=== PATIENT | male | born 1970 | race Caucasian/White ===

== ENCOUNTER 2018-03-05 10:28 | Outpatient (CLI) | payer MEDICAID, SELFPAY ==
[2018-03-05 13:07] LABS: TSH (W/Ref FT4) 1.91 uIU/mL (0.358-3.74)
[2018-03-06 09:35] LABS: PSA, Screening 0.4 ng/ml (0-2.5)
[2018-03-07 20:25] LABS: Testosterone, Bioavailable 38 ng/dL (61-213); Testosterone, Total 419 ng/dL (240-950)
== END 2018-03-05 10:48 ==
PROVIDERS: Urology; PCP Family Medicine; Visit Provider Physician Assistant Medical
DX: R53.82 Chronic fatigue, unspecified (principal); Z80.42 Family history of malignant neoplasm of prostate; Z12.5 Encounter for screening for malignant neoplasm of prostate
CPT/HCPCS: 36415; 84153; 84403; 84410; 84443

== ENCOUNTER 2018-05-29 18:34 | Outpatient (REF) | payer MEDICAID, SELFPAY ==
[2018-05-29 19:21] LABS: ALT 20 U/L (12-78); AST 14 U/L (15-37); Albumin 3.4 g/dL (3.4-5.0); Alkaline Phosphatase 121 U/L (46-116); Anion Gap 11.8 mmol/L (3-11); BUN 7 mg/dL (7-18); Bilirubin, Total 0.1 mg/dL (0.2-1.0); CO2 29.2 mmol/L (21.0-32.0); CREATININE 0.86 mg/dL (0.70-1.30); Calcium 8.9 mg/dL (8.5-10.1); Chloride 99 mmol/L (98-107); Glucose 89 mg/dL (70-100); Potassium 3.5 mmol/L (3.5-5.1); Sodium 140 mmol/L (136-145); Total Protein 6.7 g/dL (6.4-8.2)
[2018-05-29 19:29] LABS: Abs Immature Grans 0.02 k/cumm (0.0-0.09); Absolute Basophil Count 0.05 k/cumm (0.0-0.2); Absolute Eosinophil Count 0.08 k/cumm (0.0-0.7); Absolute Lymphocyte Count 3.76 k/cumm (1.2-3.4); Basophils % 0.4; Eosinophils % 0.6; HCT 41.2 % (40.0-50.0); HGB 13.7 g/dL (13.5-17.5); Immature Grans % 0.2; Mean Corp. HGB Concentration 33.3 g/dL (32.0-36.0); Mean Corpuscular Hemoglobin 29.7 pg (27.0-33.0); Mean Corpuscular Volume 89.2 fL (80-95); Mean Platelet Volume 10.6 fL (8.0-11.0); Monocytes % 7.7; Neutrophils % 61.1; Platelet Count 443 x1000/uL (130-400); RBC 4.62 m/cumm (4.50-6.00); RBC Distribution Width 13.5 % (11.8-14.1); White Blood Cell Count 12.52 k/cumm (4.4-10.8)
[2018-05-29 19:56] LABS: Absolute Monocyte Count 0.96 k/cumm (0.11-0.7); Absolute Neutrophil Count 7.65 k/cumm (1.2-6.7)
== END 2018-05-29 18:54 ==
LOC: LBN 18:34
PROVIDERS: PCP Family Medicine; Visit Provider Family Medicine
DX: G89.29 Other chronic pain (principal)
CPT/HCPCS: 80053; 85025

== ENCOUNTER 2018-06-04 14:03 | Outpatient (CLI) | payer MEDICAID, SELFPAY ==
[2018-06-06 14:47] LABS: Testosterone, Bioavailable 39 ng/dL (61-213); Testosterone, Total 431 ng/dL (240-950)
== END 2018-06-04 14:23 ==
PROVIDERS: PCP Family Medicine; Visit Provider Urology
DX: E29.1 Testicular hypofunction (principal)
CPT/HCPCS: 36415; 84403; 84410

== ENCOUNTER 2018-07-19 15:25 | Outpatient (CLI) | payer MEDICAID, SELFPAY ==
[2018-07-24 00:37] LABS: Testosterone, Bioavailable 322 ng/dL (61-213); Testosterone, Free 31.1 ng/dL (4.26-16.4); Testosterone, Total 1110 ng/dL (240-950)
== END 2018-07-19 15:45 ==
PROVIDERS: PCP Family Medicine; Visit Provider Urology
DX: E29.1 Testicular hypofunction (principal)
CPT/HCPCS: 36415; 84402; 84403; 84410

== ENCOUNTER 2018-09-13 15:14 | Outpatient (CLI) | payer MEDICAID, SELFPAY ==
[2018-09-15 16:34] LABS: Testosterone, Total 334 ng/dL (240-950)
== END 2018-09-13 15:34 ==
PROVIDERS: PCP Family Medicine; Visit Provider Urology
DX: E29.1 Testicular hypofunction (principal)
CPT/HCPCS: 36415; 84403

== ENCOUNTER 2018-09-18 14:46 | Outpatient (REF) | payer MEDICAID, SELFPAY ==
[2018-09-18 15:02] LABS: Abs Immature Grans 0.01 k/cumm (0.0-0.09); Absolute Basophil Count 0.04 k/cumm (0.0-0.2); Absolute Eosinophil Count 0.05 k/cumm (0.0-0.7); Absolute Lymphocyte Count 2.31 k/cumm (1.2-3.4); Absolute Monocyte Count 0.67 k/cumm (0.11-0.7); Absolute Neutrophil Count 4.86 k/cumm (1.2-6.7); Anion Gap 10.8 mmol/L (3-11); BUN 5 mg/dL (7-18); Basophils % 0.5; CO2 29.2 mmol/L (21.0-32.0); CREATININE 0.93 mg/dL (0.70-1.30); Calcium 8.9 mg/dL (8.5-10.1); Chloride 97 mmol/L (98-107); Eosinophils % 0.6; Glucose 95 mg/dL (70-100); HCT 41.3 % (40.0-50.0); HGB 13.9 g/dL (13.5-17.5); Immature Grans % 0.1; Lymphocytes % 29.1; Mean Corp. HGB Concentration 33.7 g/dL (32.0-36.0); Mean Corpuscular Hemoglobin 28.7 pg (27.0-33.0); Mean Corpuscular Volume 85.3 fL (80-95); Mean Platelet Volume 10.5 fL (8.0-11.0); Monocytes % 8.4; Neutrophils % 61.3; Platelet Count 356 x1000/uL (130-400); Potassium 3.6 mmol/L (3.5-5.1); RBC 4.84 m/cumm (4.50-6.00); RBC Distribution Width 14.2 % (11.8-14.1); Sodium 137 mmol/L (136-145); White Blood Cell Count 7.94 k/cumm (4.4-10.8)
== END 2018-09-18 15:06 ==
LOC: LBN 14:46
PROVIDERS: PCP Family Medicine; Visit Provider Family Medicine
DX: Z91.89 Other specified personal risk factors, not elsewhere classified (principal); Z79.899 Other long term (current) drug therapy; M79.7 Fibromyalgia; G89.29 Other chronic pain
CPT/HCPCS: 80048; 85025

== ENCOUNTER 2019-01-15 11:50 | Outpatient (REF) | payer MEDICAID, SELFPAY ==
[2019-01-15 18:48] LABS: C-Reactive Protein 0.74 mg/dL (0.0-0.3)
== END 2019-01-15 12:10 ==
LOC: LBN 11:50
PROVIDERS: PCP Family Medicine; Visit Provider Family Medicine
DX: M06.00 Rheumatoid arthritis without rheumatoid factor, unspecified site (principal)
CPT/HCPCS: 86140

== ENCOUNTER 2019-03-04 11:42 | Outpatient (REF) | payer MEDICAID, SELFPAY ==
[2019-03-05 10:06] LABS: Lyme Ab w Rflx to Lyme Confirm Negative
[2019-03-06 21:41] LABS: Anaplasma phagocytophilum Negative (Negative); B. miyamotoi PCR Negative (Negative); Babesia divergens/MO-1 Negative (Negative); Babesia duncani Negative (Negative); Babesia microti Negative (Negative); Ehrlichia chaffeensis Negative (Negative); Ehrlichia ewingii/canis Negative (Negative); Ehrlichia muris eauclairensis Negative (Negative)
== END 2019-03-04 12:02 ==
LOC: LBN 11:42
PROVIDERS: PCP Family Medicine; Visit Provider Family Medicine
DX: W57.XXXA Bitten or stung by nonvenomous insect and other nonvenomous arthropods, initial encounter (principal); T14.8XXA Other injury of unspecified body region, initial encounter
CPT/HCPCS: 87798; 86618

== ENCOUNTER 2019-04-02 12:21 | Outpatient (CLI) | payer MEDICAID, SELFPAY ==
--- NOTE | 2019-04-02 12:15 | DI.RAD_ITS ---
EXAM: XR THORACIC SPINE COMPLETE INDICATION: Lhermitte's sign positive, upper back pain, [id number]. COMPARISON: ABD FLAT UPRIGHT PA CHEST from 09/22/2012 TECHNIQUE: 2D digital imaging was performed. FINDINGS: Vertebral bodies are well maintained in height. There are minimal endplate osteophytes. There is no significant scoliosis. The heart size is normal. IMPRESSION: Mild degenerative changes.
== END 2019-04-02 12:41 ==
PROVIDERS: PCP Family Medicine; Visit Provider Family Medicine
DX: M54.6 Pain in thoracic spine (principal); M47.814 Spondylosis without myelopathy or radiculopathy, thoracic region
CPT/HCPCS: 72072

== ENCOUNTER 2019-04-16 12:33 | Outpatient (CLI) | payer MEDICAID, SELFPAY ==
[2019-04-18 07:49] LABS: Testosterone, Total 264 ng/dL (240-950)
== END 2019-04-16 12:53 ==
PROVIDERS: PCP Family Medicine; Visit Provider Urology
DX: E29.1 Testicular hypofunction (principal)
CPT/HCPCS: 36415; 84403

== ENCOUNTER 2019-06-10 14:02 | Outpatient (CLI) | payer MEDICAID, SELFPAY ==
[2019-06-13 07:31] LABS: Testosterone, Total 120 ng/dL (240-950)
== END 2019-06-10 14:22 ==
PROVIDERS: PCP Family Medicine; Visit Provider Urology
DX: E29.1 Testicular hypofunction (principal)
CPT/HCPCS: 36415; 84403

== ENCOUNTER 2019-06-24 15:21 | Outpatient (CLI) | payer MEDICAID, SELFPAY ==
--- NOTE | 2019-06-24 15:13 | DI.RAD_ITS ---
EXAM: XR LUMBAR SPINE COMPLETE INDICATION: Chronic corticosteroid use, chronic low back pain Z79.52 JAIL USE. COMPARISON: No exams were available for comparison TECHNIQUE: 2D digital imaging was performed. FINDINGS: The vertebral bodies are well maintained in height. There is no significant disc space narrowing. T here are small endplate osteophytes. No spondylolysis, spondylolisthesis or scoliosis is seen. The aorta shows calcification but is normal in diameter. Surgical clips are noted in the right upper tyler drant. IMPRESSION: Mild degenerative disc changes
== END 2019-06-24 15:41 ==
PROVIDERS: PCP Family Medicine; Visit Provider Family Medicine
DX: M54.5 Low back pain (principal); Z79.52 Long term (current) use of systemic steroids; M51.36 Other intervertebral disc degeneration, lumbar region
CPT/HCPCS: 72110

== ENCOUNTER 2019-07-25 08:03 | Outpatient (CLI) | payer MEDICAID, SELFPAY ==
--- NOTE | 2019-07-25 11:17 | DI.CT_ITS ---
EXAM: CT RENAL COLIC WO CLINICAL HISTORY: Bilateral flank pain, moderate hematuria, N23, renal colic clif. TECHNIQUE: Imaging Protocol: Axial computed tomography images with coronal and sagittal reformatted images were created and reviewed. CONTRAST MATERIAL: None COMPARISON: ABD PELVIS WITH CONTRAST from 09/22/2012 LUMBAR SPINE WITHOUT CONTRAST from 03/13/2014 FINDINGS: ABDOMEN: Lung Bases: Normal where visualized. Liver: Normal density. No measurable mass. Gallbladder and biliary tract: No radiodense calculus or dilation. Status post cholecystectomy. Pancreas: Normal density, no abnormal calcifications or inflammatory process. Spleen: Normal. Kidneys: Normal size, contour and axis. No radiodense stones or obstructive uropathy. No masses seen. Adrenal glands: No masses seen. Abdominal Aorta: Abdominal portion non-dilated. Moderate calcification. PELVIS: Bladder: Nearly empty. No gross wall thickening, calcification or mass. Bowel: No obstruction or bowel wall thickening. Peritoneal cavity: No ascites, collection or mesenteric inflammatory response. Bones: Old-appearing compression fracture of the anterior superior endplate of L4.. IMPRESSION: No evidence of hydronephrosis, urinary tract calculi or mass.. DATA REPOSITORY: All CT scans at this facility are submitted to the National Radiology Data Registry (NRDR) Dose Index Registry (DIR) with the [employer] (A[employer]). RADIATION OPTIMIZATION: All CT scans at this facility use at least one of these dose optimization te chniques: automated exposure control; mA and/or kV adjustment per patient size (includes targeted exa ms where dose is matched to clinical indication); or iterative reconstruction.
== END 2019-07-25 08:23 ==
PROVIDERS: PCP Family Medicine; Visit Provider Family Medicine
DX: R10.31 Right lower quadrant pain (principal); R10.32 Left lower quadrant pain; R31.9 Hematuria, unspecified; Z90.49 Acquired absence of other specified parts of digestive tract; N23 Unspecified renal colic
CPT/HCPCS: 74176

== ENCOUNTER 2019-12-09 10:29 | Outpatient (REF) | payer MEDICAID, SELFPAY ==
[2019-12-09 18:51] LABS: Abs Immature Grans 0.02 k/cumm (0.0-0.09); Absolute Basophil Count 0.05 k/cumm (0.0-0.2); Absolute Eosinophil Count 0.05 k/cumm (0.0-0.7); Absolute Lymphocyte Count 2.65 k/cumm (1.2-3.4); Absolute Monocyte Count 0.73 k/cumm (0.11-0.7); Absolute Neutrophil Count 5.61 k/cumm (1.2-6.7); Basophils % 0.5; Eosinophils % 0.5; HCT 40.6 % (40.0-50.0); HGB 13.4 g/dL (13.5-17.5); Immature Grans % 0.2 %; Lymphocytes % 29.1; Mean Corpuscular Hemoglobin 28.8 pg (27.0-33.0); Mean Corpuscular Volume 87.3 fL (80-95); Mean Platelet Volume 10.3 fL (8.0-11.0); Neutrophils % 61.7; Platelet Count 396 x1000/uL (130-400); RBC 4.65 m/cumm (4.50-6.00); RBC Distribution Width 13.8 % (11.8-14.1); White Blood Cell Count 9.11 k/cumm (4.4-10.8)
[2019-12-09 19:07] LABS: ALT 13 U/L (16-63); AST 11 U/L (15-37); Albumin 3.3 g/dL (3.4-5.0); Alkaline Phosphatase 124 U/L (46-116); Anion Gap 10.7 mmol/L (3-11); BUN 5 mg/dL (7-18); Bilirubin, Total 0.2 mg/dL (0.2-1.0); CO2 28.3 mmol/L (21.0-32.0); Calcium 9.1 mg/dL (8.5-10.1); Chloride 97 mmol/L (98-107); Glucose 95 mg/dL (74-106); Potassium 3.6 mmol/L (3.5-5.1); Sodium 136 mmol/L (136-145); TSH (W/Ref FT4) 2.58 uIU/mL (0.36-3.74); Total Protein 6.6 g/dL (6.4-8.2)
== END 2019-12-09 10:49 ==
LOC: LBN 10:29
PROVIDERS: PCP Family Medicine; Visit Provider Family Medicine
DX: R63.4 Abnormal weight loss (principal)
CPT/HCPCS: 80053; 84443; 85025; 86140

== ENCOUNTER 2019-12-31 00:57 | Outpatient (CLI) | payer MEDICAID, SELFPAY ==
--- NOTE | 2019-12-31 06:45 | DI.CT_ITS ---
EXAM: CT CHEST/ABD/PEL W CLINICAL HISTORY: 60+ pack year hx, r/o malignancy,abnl wt loss,r63.4,f17.200. TECHNIQUE: Imaging Protocol: Axial computed tomography images with coronal and sagittal reformatted images were created and reviewed CONTRAST MATERIAL: Intravenous: Omnipaque 350 Contrast volume:100 cc Oral: yes / COMPARISON: CR XR THORACIC SPINE COMPLETE from 04/02/[address] RENAL COLIC WO from 07/25/2019 FINDINGS: CHEST: Thyroid: Normal Tracheobronchial tree: Patent where visualized. Mediastinum and Kerry: No dominant adenopathy or fluid collection. Pulmonary parenchyma: Paraseptal and centrilobular emphysema greater at the apices. No mass or suspi cious pulmonary nodules are seen. Pleura: No effusion or pneumothorax. Lymph nodes: Within normal limits. Aorta: Thoracic portion non-dilated. Heart: Normal size Bones: There is a moderate compression fracture of the superior endplate of T12 and a mild compressio n fracture of the superior endplate of L1, new when compared with the previous exams. ABDOMEN: Liver: Normal density. No measurable mass. Gallbladder and biliary tract: Status post cholecystectomy. Pancreas: Normal density, no abnormal calcifications or inflammatory process. Spleen: Normal. Kidneys: Normal size, contour and axis. No radiodense stones or obstructive uropathy. No masses seen. Adrenal glands: No masses seen. Aorta: Abdominal portion non-dilated. Lymph nodes: Within normal limits. PELVIS: Bladder: Symmetric distention, no gross wall thickening. Bowel: No obstruction or bowel wall thickening. Peritoneal cavity: No ascites, collection or mesenteric inflammatory response. Bones: Stable L4 compression fracture. Mild compression of the superior endplate of L3 which is new since the previous exam. No underlying pathologic lesions are seen. Reproductive organs: Within normal limits. IMPRESSION: Emphysematous changes. No suspicious mass. Compression fractures of T12, L1 and L3 which are new since the previous CT scan. Stable L4 compress ion fracture. RADIATION DOSE DELIVERED: 1,189.52mGy.cm Total DLP DATA REPOSITORY: All CT scans at this facility are submitted to the National Radiology Data Registry (NRDR) Dose Index Registry (DIR) with the [employer] (ACR). RADIATION OPTIMIZATION: All CT scans at this facility use at least one of these dose optimization te chniques: automated exposure control; mA and/or kV adjustment per patient size (includes targeted exa ms where dose is matched to clinical indication); or iterative reconstruction.
[2019-12-31] MEDS: Omnipaque 350 MG/ML 50 ML BTL IJ (08:14)
[2019-12-31] MEDS: Breeza Beverage 473 ML BTL PO ×2 (08:15→08:16)
[2019-12-31] MEDS: Omnipaque 350 MG/ML 100 ML BTL IJ (09:49)
[2019-12-31] MEDS: Normal Saline - Diluent 50 ML VIAL IV (09:50)
[2019-12-31] MEDS: Normal Saline Flush 10 ML SYR IVP (09:51)
== END 2019-12-31 01:17 ==
PROVIDERS: PCP Family Medicine; Visit Provider Family Medicine
DX: R63.4 Abnormal weight loss (principal); F17.210 Nicotine dependence, cigarettes, uncomplicated; M48.55XA Collapsed vertebra, not elsewhere classified, thoracolumbar region, initial encounter for fracture; J43.9 Emphysema, unspecified; M48.56XA Collapsed vertebra, not elsewhere classified, lumbar region, initial encounter for fracture
CPT/HCPCS: 74177; 71260; J3490; Q9967

== ENCOUNTER 2020-02-07 02:25 | Outpatient (CLI) | payer MEDICAID, SELFPAY ==
[2020-02-13 15:37] LABS: Testosterone, Free 9.71 ng/dL (4.26-16.4); Testosterone, Total 647 ng/dL (240-950)
== END 2020-02-07 02:45 ==
PROVIDERS: PCP Family Medicine; Visit Provider Family Medicine
DX: E29.1 Testicular hypofunction (principal); R79.89 Other specified abnormal findings of blood chemistry
CPT/HCPCS: 36415; 84402; 84403

== ENCOUNTER 2020-02-10 16:10 | Emergency (ER) | payer MEDICAID, SELFPAY ==
[2020-02-10 16:47] VITALS: BP 156/91; PULSE 101; RESP 16; TEMP 36.6; O2SAT 99
--- NOTE | 2020-02-10 17:02 | ED.GENADUL_ITS ---
Discharge Plan Disposition Patient Disposition: HOME Condition: Improving Discharge Details Clinical Impression: Constipation Primary Care Provider: Gabino Florian ED Provider: Estephania Bailey Home Meds and New Rx's Prescriptions: Continued tamsulosin 0.4 mg capsule 0.8 mg PO DAILY Qty: 120 RF: 4 testosterone [AndroGel] 20.25 mg/1.25 gram (1.62 %) gel in metered-dose pump 3 pump TP DAILY Qty: 75 RF: 5 omeprazole 20 mg capsule,delayed release(DR/EC) 20 mg PO DAILY Qty: 90 RF: 3 bupropion HCl 150 mg tablet extended release 24 hr See Rx Instructions PO .COMPLEX RF: 0 magnesium citrate Solution 150 ml PO ONCE Qty: 296 RF: 0 Caltrate 600-D Plus Minerals 600 mg calcium- 800 unit-50 mg tablet 1 tab PO DAILY Qty: 90 RF: 3 oxycodone 20 mg tablet 20 mg PO Q4H MDD 170 mg total PRN (Reason: pain) Qty: 168 RF: 0 oxycodone 10 mg tablet 10 mg PO BID MDD 170 mg total PRN (Reason: pain) Qty: 28 RF: 0 oxycodone 20 mg tablet,oral only,ext.rel.12 hr 20 mg PO BID MDD 170 mg (combined oxycodone Qty: 56 RF: 0 mirtazapine 15 mg tablet 15 mg PO QHS Qty: 30 RF: 0 Narcan 4 MG spray,non-aerosol 4 mg NS PRN PRNQty: 1 RF: 2 acetaminophen [Tylenol Extra Strength] 500 MG tablet 1,000 mg PO DAILY RF: 0 oxybutynin chloride 5 mg tablet 5 mg PO BID-TID MDD 15 mg PRN (Reason: bladder spasms) Qty: 180 RF: 3 cyclobenzaprine 10 mg tablet 10 mg PO TID PRN (Reason: muscle spasm) Qty: 60 RF: 3 propranolol 20 mg tablet 20 mg PO BID Qty: 180 RF: 3 Discharge Instructions Instructions: Magnesium Citrate (By mouth), Constipation (ED) Additional Instructions: Please encourage water intake. You may use the mag citrate once home. Please try to walk around encourage water intake using this. Hopefully, with the results she have thus far, things will only continue to move more. Please follow-up with primary care this week for reevaluation. You may need to discuss a chronic regimen to help prevent constipation with your chronic narcotics that you are taking daily. If you develop fever/chills, vomiting, abdominal pain or other new/worsening symptoms please seek care urgently once again. Please also discuss colonoscopy with your primary care further. Referrals: Gabino Florian DO [Primary Care Provider] - Discharge Data Discharge Date/Time-TO BE ENTERED AT DEPARTURE: 02/10/20 21:45 Medical Decision Making Patient is a pleasant 49-year-old male presents today with chief complaint of constipation. He reports that he has not had a true bowel movement in the past few weeks. Unclear when he had a last full bowel movement but does state that he had small amount of stool as well as passage of flatus a few hours prior to arrival. Chart review does review of the patient did recently have an increase in his prescribe daily narcotics. He denies any fevers or chills. Denies abdominal pain. States that he is feeling slightly bloated and has pain in the rectal vault. No previous abdominal surgeries. No nausea or vomiting. No change in his appetite. Patient does report unintentional weight loss which is being worked up by his primary care physician. He has not had a colonoscopy historically. On exam, patient is anxious and appears uncomfortable. He has hypoactive bowel sounds there are minimally present. His abdomen is somewhat distended but he has no pain or peritoneal findings. Rectal exam shows impacted stool. Heme- negative. I did try to break this up and patient is not tolerating rectal exam well. I was able to get out a small amount. At this point, he feels that he may be able to have a bowel movement sitting on commode. Reassessed the patient, he continues to have fecal impaction and did not have success with passage of stool. Repeated rectal exam was able to break up stool burden further although patient again tolerated this for very short period of time prior to asked me to stop. Enema was performed by nursing staff and he feels that he did have a significant bowel movement and that things are beginning to move although he does continue to endorse feeling of constipation. He does feel ready for discharge at this time. I will discharge him home with magnesium citrate. Return precautions were given. I advised increase water intake. I did advise he should be on a chronic bowel regimen with the narcotics that he takes on a daily basis. He is aware that he may return at any point for further disimpaction or management. All his questions and concerns were addressed and he is agreement this plan. HPI General Mode of arrival: ambulatory . Date/Time Provider Initiated Documentation: 02/10/20 17:02 . Limitations to Documentation: no limitations . Information obtained by: patient and RN notes reviewed . History of Present Illness 49 year old M presents to the emergency department with the chief complaint of Constipation, described as severe and similar to prior episodes, with intensity rated at 8. Quality is described as aching, and is localized to the buttocks (Feels pressure in his rectum). Patient reports no radiation. Patient started experiencing this week(s) and it has been constant. No relieving factors improve symptom(s), No exacerbating factors reported . Patient notes no other symptoms.. Patient did receive the following treatments prior to arrival, other (Dulcolax) Related Data Home Medications Medication Instructions Recorded Confirmed Narcan 4 mg NS PRN PRN #1 unit 07/25/16 02/11/20 acetaminophen [Tylenol Extra 1,000 mg PO DAILY tab 04/03/17 02/11/20 Strength] bupropion HCl 150 mg 24 hr tablet, See Rx Instructions PO .COMPLEX 05/28/19 02/11/20 extended release tab omeprazole 20 mg capsule,delayed 20 mg PO DAILY #90 cap 05/28/19 02/11/20 release tamsulosin 0.4 mg capsule 0.8 mg PO DAILY #120 tab-cap 08/01/19 02/11/20 oxybutynin chloride 5 mg tablet 5 mg PO BID-TID PRN #180 tab MDD 08/06/1902/10 15 mg testosterone 20.25 mg/1.25 gram 3 pump TP DAILY #75 gm 09/23/19 02/11/20 (1.62 %) transdermal gel pump magnesium citrate 150 ml PO ONCE #296 ml 11/11/19 02/11/20 cyclobenzaprine 10 mg tablet 10 mg PO TID PRN #60 tab 12/21/19 02/11/20 calcium 600 mg-D3 800 unit-mag11 1 tab PO DAILY #90 tab 01/06/20 02/11/20 50 md-ktcf-acecdr-seamus-s.borat tablet mirtazapine 15 mg tablet 15 mg PO QHS #30 tab 01/31/20 02/11/20 oxycodone 10 mg tablet 10 mg PO BID PRN #28 tab MDD 170 01/31/20 02/11/20 mg total oxycodone 20 mg tablet 20 mg PO Q4H PRN #168 tab MDD 170 01/31/20 02/11/20 mg total oxycodone 20 mg tablet,crush 20 mg PO BID #56 tab MDD 170 mg 01/31/20 02/11/20 resistant,extended release 12 hr (combined oxycodone propranolol 20 mg tablet 20 mg PO BID #180 tab 02/03/20 02/11/20 Previous Rx's Medication Instructions Recorded omeprazole 20 mg capsule,delayed 20 mg PO DAILY #90 cap 05/28/19 release tamsulosin 0.4 mg capsule 0.8 mg PO DAILY #120 tab-cap 08/01/19 oxybutynin chloride 5 mg tablet 5 mg PO BID-TID PRN #180 tab MDD 08/06/19 15 mg testosterone 20.25 mg/1.25 gram 3 pump TP DAILY #75 gm 09/23/19 (1.62 %) transdermal gel pump magnesium citrate 150 ml PO ONCE #296 ml 11/11/19 cyclobenzaprine 10 mg tablet 10 mg PO TID PRN #60 tab 12/21/19 calcium 600 mg-D3 800 unit-mag11 1 tab PO DAILY #90 tab 01/06/20 50 xn-quea-qwarhx-seamus-s.borat tablet mirtazapine 15 mg tablet 15 mg PO QHS #30 tab 01/31/20 oxycodone 10 mg tablet 10 mg PO BID PRN #28 tab MDD 170 01/31/20 mg total oxycodone 20 mg tablet 20 mg PO Q4H PRN #168 tab MDD 170 01/31/20 mg total oxycodone 20 mg tablet,crush 20 mg PO BID #56 tab MDD 170 mg 01/31/20 resistant,extended release 12 hr (combined oxycodone propranolol 20 mg tablet 20 mg PO BID #180 tab 02/03/20 Allergies Allergy/AdvReac Type Severity Reaction Status Date / Time diclofenac AdvReac Severe dyspepsia Verified 02/11/20 05:01 with all nsaids duloxetine HCl AdvReac Unknown lethargic, Verified 02/11/20 05:01 [From Cymbalta] nausea/vomiting,diarrhea ibuprofen AdvReac Unknown GASTRIC SX Verified 02/11/20 05:01 morphine sulfate AdvReac Unknown SEDATION, Verified 02/11/20 05:01 [From MS Contin] HUNG OVER nabumetone AdvReac Unknown GI PAIN Verified 02/11/20 05:01 General Stated Complaint: Abd Prob CURRY: 3 Review of Systems Constitutional Constitutional: Reports as per HPI, Denies chills, Denies fatigue, Denies fever(s) and Denies headache(s) ENT Ears, Nose, Mouth, and Throat: Denies headache(s) Cardiovascular Cardiovascular: Reports as per HPI, Denies chest pain and Denies dyspnea Respiratory Respiratory: Reports as per HPI, Denies cough and Denies dyspnea Gastrointestinal Gastrointestinal: Reports as per HPI Genitourinary Genitourinary: Denies system reviewed and no additional complaints, except as documented (patient denies any change in urinary habits) Musculoskeletal Musculoskeletal: Reports as per HPI and Denies back pain Integumentary/Breasts Skin/Breast: Reports as per HPI and Denies rash Neurologic Neurologic: Reports as per HPI and Denies headache(s) Endocrine Endocrine: Denies fatigue [facility] Medical History Acute cholecystitis (09/22/12) Acute cholecystitis and cholelithiasis found at laparoscopic cholecystectomy done by Dr. Aubrey Nguyen on 09-22-2012. Benign familial tremor Compression fracture of lumbar vertebra Long-term corticosteroid use Finished course December 2019 Seronegative rheumatoid arthritis Tobacco dependence syndrome (05/15/84) 1 PPS; unable to stop, multiple tries; 2020- reduced on buproprion Unintentional weight loss Surgical History Cholecystectomy (09/22/12) sarika Nguyen Family History Mother No problems noted. Father Personal history of malignant neoplasm prostate CA Brother , heart at age 57. 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 [employer] Current gender identity: male What is your relationship status?: Panel score (0-1 are the most socially isolated patients): 1 What type of physical activity do you participate in: none Seatbelt use: always Water heater temp set <120 deg: Yes Working smoke detector in home: Yes Fire extinguisher in home: Yes Carbon monox detector in home: Yes Do you feel safe at home: Yes Do you feel safe in your relationship?: Yes Exam Const General: cooperative, healthy appearing, uncomfortable, no acute distress, well developed and anxious Nutritional Appearance: average body habitus and well nourished Orientation: alert and awake HENMT Head: normal to inspection Mouth: moist mucous membranes Resp Effort & Inspection: normal respiratory effort, able to speak in complete sentences and no respiratory distress Auscultation: clear to auscultation bilaterally, no rales, no rhonchi and no wheezes Cardio Rate: regular rate Rhythm: regular rhythm Heart Sounds: S1 normal and S2 normal GI Inspection: normal to inspection, distended, no visible herniation and no visible pulsation Palpation: soft, no hepatosplenomegaly, not firm, no guarding, no hernias, no masses, not rigid and nontender Percussion: normal to percussion Auscultation: hypoactive bowel sounds Rectal Exam: visual inspection normal, normal sphincter tone, No prostate normal (Unable to palpate secondary large amount of stool obstructing rectal vault), fecal impaction, No fissure, No heme positive stool, No hemorrhoids and No laceration Back/Spine/Pelvis Back: no CVA tenderness Skin General skin exam: no rashes or lesions noted Trauma: no lacerations or abrasions Neuro General: patient alert and patient awake Cognition: normal cognition Speech: speech normal Gait: normal gait Psych Appearance: grossly normal and well kempt Mental Status: mental status grossly normal Speech and Movement: speech and movement normal Course Vital Signs Vital signs: Vital Signs Temperature 36.6 C 02/10/20 16:47 Pulse 101 H 02/10/20 16:47 Respiratory Rate 16 02/10/20 16:47 Blood Pressure 156/91 H 02/10/20 16:47 Pulse Oximetry 99 02/10/20 16:47 Temperature 36.6 C 09/28/20 16:47 Temperature Source Skin 02/10/20 16:47 Pulse 101 H 02/10/20 16:47 Respiratory Rate 16 02/10/20 16:47 Respiratory Effort Non-Labored 02/10/20 16:47 Blood Pressure 156/91 H 02/10/20 16:47 Blood Pressure Position Sitting 02/10/20 16:47 Pulse Oximetry 99 02/10/20 16:47 Oxygen Delivery Method Room Air 02/10/20 16:47 Oxygen Flow Rate 0 02/10/20 16:47 Pain Level 8 02/10/20 16:47
[2020-02-10] MEDS: Magnesium Citrate 300 ML BTL PO (21:44)
[2020-02-10 21:46] VITALS: BP 110/74; PULSE 90; RESP 16; TEMP 37; O2SAT 100
== END 2020-02-10 21:45 | disposition home or self-care (01) ==
PROVIDERS: Emergency Provider Physician Assistant; PCP Family Medicine
DX: K59.03 Drug induced constipation (principal); T40.2X5A Adverse effect of other opioids, initial encounter; Z79.891 Long term (current) use of opiate analgesic
CPT/HCPCS: 99283

== ENCOUNTER 2020-02-11 04:52 | Emergency (ER) | payer MEDICAID, SELFPAY ==
[2020-02-11 04:55] VITALS: BP 162/90; PULSE 116; RESP 16; TEMP 36.2; O2SAT 99
--- NOTE | 2020-02-11 05:21 | ED.GENADUL_ITS ---
Discharge Plan Disposition Patient Disposition: HOME Condition: Good Discharge Details Clinical Impression: Constipation Primary Care Provider: Gabino Florian ED Provider: Milton Patel Home Meds and New Rx's Prescriptions: Continued tamsulosin 0.4 mg capsule 0.8 mg PO DAILY Qty: 120 RF: 4 testosterone [AndroGel] 20.25 mg/1.25 gram (1.62 %) gel in metered-dose pump 3 pump TP DAILY Qty: 75 RF: 5 omeprazole 20 mg capsule,delayed release(DR/EC) 20 mg PO DAILY Qty: 90 RF: 3 bupropion HCl 150 mg tablet extended release 24 hr See Rx Instructions PO .COMPLEX RF: 0 magnesium citrate Solution 150 ml PO ONCE Qty: 296 RF: 0 Caltrate 600-D Plus Minerals 600 mg calcium- 800 unit-50 mg tablet 1 tab PO DAILY Qty: 90 RF: 3 oxycodone 20 mg tablet 20 mg PO Q4H MDD 170 mg total PRN (Reason: pain) Qty: 168 RF: 0 oxycodone 10 mg tablet 10 mg PO BID MDD 170 mg total PRN (Reason: pain) Qty: 28 RF: 0 oxycodone 20 mg tablet,oral only,ext.rel.12 hr 20 mg PO BID MDD 170 mg (combined oxycodone Qty: 56 RF: 0 mirtazapine 15 mg tablet 15 mg PO QHS Qty: 30 RF: 0 Narcan 4 MG spray,non-aerosol 4 mg NS PRN PRNQty: 1 RF: 2 acetaminophen [Tylenol Extra Strength] 500 MG tablet 1,000 mg PO DAILY RF: 0 oxybutynin chloride 5 mg tablet 5 mg PO BID-TID MDD 15 mg PRN (Reason: bladder spasms) Qty: 180 RF: 3 cyclobenzaprine 10 mg tablet 10 mg PO TID PRN (Reason: muscle spasm) Qty: 60 RF: 3 propranolol 20 mg tablet 20 mg PO BID Qty: 180 RF: 3 Discharge Instructions Instructions: Constipation (ED) Additional Instructions: At this time the stool ball has been removed. Please make sure to drink 10 to 12 cups of water per day, and take Colace or any other cibh-khc-jllywmo stool softener twice daily. If you notice any worsening of your symptoms, or any new symptoms such as vomiting, diarrhea, fever, chills, shortness of breath, chest pain, numbness, weakness, or fainting , please return immediately to the emergency department for reevaluation. Please follow up with your primary care provider as soon as possible for reassessment and reevaluation. As always, it was a pleasure participating in your medical care today. Referrals: Gabino Florian DO [Primary Care Provider] - Medical Decision Making This is a pleasant 49-year-old male with a past medical history of chronic pain secondary to chronic narcotic use as well as subsequent constipation. Patient presents today for constipation. Patient was here earlier today for complaint of constipation. He had an enema was able to pass some stool. He went home with a bottle of magnesium citrate. Upon going home he took the bottle, but has unable to pass a bowel movement. He describes as a notable pressure-like sensation in his rectum. He did have a very small amount of blood the size of a thumbnail, he describes it as maroon color. But this is all. He denies any other complaints at this time. No other modifying factors. He is here currently seeking help with the constipation symptoms. Exam demonstrates a notably hard firm stool ball in the rectal vault. I was able to break it up slightly with my finger. We will repeat the enema, and perform repeat disimpaction if indicated. 5 a.m. Patient has complete resolution of his constipation. He had a notable stool ball that was removed with bowel movement after enema. Patient feeling much better. Discharged home with instructions for stool softeners and fluid intake daily. Discussed red flags which to return. I have extensively reviewed the treatment plan and discharge instructions with the patient. I have addressed all patient concerns at this time. The patient was made aware of what symptoms to monitor for that would warrant a return to the emergency department. Discussed the plan with the patient, they demonstrate verbal understanding and agreement with our assessment and plan at this time. HPI General Date/Time Provider Initiated Documentation: 02/11/20 04:54 . HPI Narrative: This is a pleasant 49-year-old male with a past medical history of chronic pain secondary to chronic narcotic use as well as subsequent constipation. Patient presents today for constipation. Patient was here earlier today for complaint of constipation. He had an enema was able to pass some stool. He went home with a bottle of magnesium citrate. Upon going home he took the bottle, but has unable to pass a bowel movement. He describes as a notable pressure-like sensation in his rectum. He did have a very small amount of blood the size of a thumbnail, he describes it as maroon color. But this is all. He denies any other complaints at this time. No other modifying factors. He is here currently seeking help with the constipation symptoms. Related Data Home Medications Medication Instructions Recorded Confirmed Narcan 4 mg NS PRN PRN #1 unit 07/25/16 02/11/20 acetaminophen [Tylenol Extra 1,000 mg PO DAILY tab 04/03/17 02/11/20 Strength] bupropion HCl 150 mg 24 hr tablet, See Rx Instructions PO .COMPLEX 05/28/19 02/11/20 extended release tab omeprazole 20 mg capsule,delayed 20 mg PO DAILY #90 cap 05/28/19 02/11/20 release tamsulosin 0.4 mg capsule 0.8 mg PO DAILY #120 tab-cap 08/01/19 02/11/20 oxybutynin chloride 5 mg tablet 5 mg PO BID-TID PRN #180 tab MDD 08/06/19 02/11/20 15 mg testosterone 20.25 mg/1.25 gram 3 pump TP DAILY #75 gm 09/23/19 02/11/20 (1.62 %) transdermal gel pump magnesium citrate 150 ml PO ONCE #296 ml 11/11/19 02/11/20 cyclobenzaprine 10 mg tablet 10 mg PO TID PRN #60 tab 12/21/19 02/11/20 calcium 600 mg-D3 800 unit-mag11 1 tab PO DAILY #90 tab 01/06/20 02/11/20 50 tp-gcym-qzianz-seamus-s.borat tablet mirtazapine 15 mg tablet 15 mg PO QHS #30 tab 01/31/20 02/11/20 oxycodone 10 mg tablet 10 mg PO BID PRN #28 tab MDD 170 01/31/20 02/11/20 mg total oxycodone 20 mg tablet 20 mg PO Q4H PRN #168 tab MDD 170 01/31/20 02/11/20 mg total oxycodone 20 mg tablet,crush 20 mg PO BID #56 tab MDD 170 mg 01/31/20 02/11/20 resistant,extended release 12 hr (combined oxycodone propranolol 20 mg tablet 20 mg PO BID #180 tab 02/03/20 02/11/20 Previous Rx's Medication Instructions Recorded omeprazole 20 mg capsule,delayed 20 mg PO DAILY #90 cap 05/28/19 release tamsulosin 0.4 mg capsule 0.8 mg PO DAILY #120 tab-cap 08/01/19 oxybutynin chloride 5 mg tablet 5 mg PO BID-TID PRN #180 tab MDD 08/06/19 15 mg testosterone 20.25 mg/1.25 gram 3 pump TP DAILY #75 gm 09/23/19 (1.62 %) transdermal gel pump magnesium citrate 150 ml PO ONCE #296 ml 11/11/19 cyclobenzaprine 10 mg tablet 10 mg PO TID PRN #60 tab 12/21/19 calcium 600 mg-D3 800 unit-mag11 1 tab PO DAILY #90 tab 01/06/20 50 zd-rims-rboqxq-seamus-s.borat tablet mirtazapine 15 mg tablet 15 mg PO QHS #30 tab 01/31/20 oxycodone 10 mg tablet 10 mg PO BID PRN #28 tab MDD 170 20 mg total oxycodone 20 mg tablet 20 mg PO Q4H PRN #168 tab MDD 170 20 mg total oxycodone 20 mg tablet,crush 20 mg PO BID #56 tab MDD 170 mg 01/31/20 resistant,extended release 12 hr (combined oxycodone propranolol 20 mg tablet 20 mg PO BID #180 tab 02/03/20 Allergies Allergy/AdvReac Type Severity Reaction Status Date / Time diclofenac AdvReac Severe dyspepsia Verified 02/11/20 05:01 with all nsaids duloxetine HCl AdvReac Unknown lethargic, Verified 02/11/20 05:01 [From Cymbalta] nausea/vomiting,diarrhea ibuprofen AdvReac Unknown GASTRIC SX Verified 02/11/20 05:01 morphine sulfate AdvReac Unknown SEDATION, Verified 02/11/20 05:01 [From MS Contin] HUNG OVER nabumetone AdvReac Unknown GI PAIN Verified 02/11/20 05:01 General Stated Complaint: Abd Prob CURRY: 3 Review of Systems All systems reviewed & are unremarkable except as noted in HPI and below PFSH Medical History Acute cholecystitis (09/22/12) Acute cholecystitis and cholelithiasis found at laparoscopic cholecystectomy done by Dr. Aubrey Nguyen on 09-22-2012. Benign familial tremor Compression fracture of lumbar vertebra Long-term corticosteroid use Finished course December 2019 Seronegative rheumatoid arthritis Tobacco dependence syndrome (05/15/84) 1 PPS; unable to stop, multiple tries; 2020- reduced on buproprion Unintentional weight loss Surgical History Cholecystectomy (09/22/12) Nguyen, laparoscopic Family History Mother No problems noted. Father Personal history of malignant neoplasm prostate CA Brother , heart at age 57. 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 3.ENT: Atraumatic external nose and ears. Moist MM. Neck: Symmetric, trachea midline, No thyromegaly. 4.CVS: +S1/S2, No murmurs or gallops. Peripheral pulses 2+ and equal in all extremities. Brisk capillary refill in all extremities. 5.RESP: Unlabored respiratory effort. Clear to auscultation bilaterally. No wheezes rales or rhonchi 6.GI: Soft, Nontender/Nondistended, No hepatosplenomegaly. No guarding or rebound. Nonsurgical in appearance. Rectal exam demonstrates notable very firm hard stool ball that is fairly large. No mass. 7.MSK: Normocephalic/Atraumatic, Extremities w/o deformity or ttp No cyanosis or clubbing, Normal movement of all extremities 8.Skin: Warm, Dry. No rashes or lesions. 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 Sensation grossly intact, no focal neurologic deficits. 10.Psych: (AAO) x3. Appropriate mood and affect Course Vital Signs Vital signs: Vital Signs Temperature 36.2 C L 02/11/20 04:55 Pulse 116 H 02/11/20 04:55 Respiratory Rate 16 02/11/20 04:55 Blood Pressure 162/90 H 02/11/20 04:55 Pulse Oximetry 99 02/11/20 04:55 Temperature 36.2 C L 02/11/20 04:55 Temperature Source Temporal Artery Scan 02/11/20 04:55 Pulse 116 H 02/11/20 04:55 Respiratory Rate 16 02/11/20 04:55 Respiratory Effort Non-Labored 02/11/20 05:02 Blood Pressure 162/90 H 02/11/20 04:55 Blood Pressure Position Sitting 02/11/20 04:55 Pulse Oximetry 99 02/11/20 04:55 Oxygen Delivery Method Room Air 02/11/20 04:55 Oxygen Flow Rate 0 02/11/20 04:55 Pain Level 10 02/11/20 05:02
[2020-02-11 06:03] VITALS: BP 123/87; PULSE 112; RESP 16; TEMP 36.4; O2SAT 98
[2020-02-11 06:04] VITALS: BP 123/87; PULSE 112; RESP 16; TEMP 36.4; O2SAT 98
== END 2020-02-11 06:10 | disposition home or self-care (01) ==
PROVIDERS: Emergency Provider Student in an Organized Health Care Education/Training Program; PCP Family Medicine
DX: K59.03 Drug induced constipation (principal); T40.2X5A Adverse effect of other opioids, initial encounter; Z79.891 Long term (current) use of opiate analgesic
CPT/HCPCS: 99282

== ENCOUNTER 2020-03-17 15:23 | Outpatient (REF) | payer MEDICAID, SELFPAY ==
[2020-03-17 19:48] LABS: Abs Immature Grans 0.01 10^3/uL (0.0-0.06); Absolute Lymphocyte Count 3.84 10^3/uL (1.2-3.4); Absolute Monocyte Count 0.65 10^3/uL (0.1-0.8); Absolute Neutrophil Count 4.16 10^3/uL (1.2-6.7); Basophils % 1.1; Eosinophils % 2.2; HCT 37.3 % (40.0-50.0); HGB 12.1 g/dL (13.5-17.5); Immature Grans % 0.1; Lymphocytes % 42.9; MCH 28.7 pg (27.0-33.0); MCHC 32.4 % (32.0-36.0); MCV 88.4 fL (80-95); MPV 10.1 fL (8.0-11.0); Monocytes % 7.3; Neutrophils % 46.4; Nucleated RBC 0 %; Platelet Count 352 10^3/uL (130-400); RBC 4.22 10^6/uL (4.36-5.78); RDW 15.9 % (11.8-14.1); RDW-SD 51.8 fL; WBC 8.96 10^3/uL (4.4-10.8)
[2020-03-17 19:56] LABS: Total Protein 6.6 g/dL (6.4-8.2)
[2020-03-25 15:55] LABS: Albumin 3.1 g/dL (3.4-4.7); Alpha 1 Antitrypsin,Serum 184 mg/dL; Total Protein 6.3 g/dL (6.3-7.9)
== END 2020-03-17 15:43 ==
LOC: LBO 15:23
PROVIDERS: PCP Family Medicine; Visit Provider Family Medicine
DX: J43.2 Centrilobular emphysema (principal); S32.030D Wedge compression fracture of third lumbar vertebra, subsequent encounter for fracture with routine healing
CPT/HCPCS: 82103; 84155; 84165; 85025

== ENCOUNTER 2021-02-08 01:34 | Outpatient (CLI) | payer MEDICAID, SELFPAY ==
--- NOTE | 2021-02-08 07:30 | DI.MRI_ITS ---
Exam(s) MR LUMBAR SPINE WO EXAM: MR LUMBAR SPINE WO CLINICAL HISTORY: SCIATICA WITH LOWER EXTREMITY WEAKNESS,MIDLINE LOW BACK PAIN,M54.40. TECHNIQUE: Multiplanar multisequence MRI of the Lumbar spine was performed. COMPARISON: CR XR LUMBAR SPINE COMPLETE from 06/24/2019 CR XR LUMBAR SPINE COMPLETE from 06/24/[address] CHEST/ABD/PEL W from 12/31/[address] CHEST/ABD/PEL W from 12/31/2019 FINDINGS: Compared to the June 2019 x-ray study there is a wedge compression fracture of T12 now evident, n ot previously evident on the plain films and which exhibits subacute signal at superior endplate inde ntation level. No significant posterior cortex retropulsion and there is no significant compromise o f the canal at this level. There is also slight height loss at superior endplate of L1 but without b one edema. There is also a prominent superior endplate Schmorl's node invagination in L3 which does not exhibit acute signal on STIR sequence. There is also prominent Schmorl's node invagination in th e superior endplate of L4, left of center, also without intraosseous edema. L5 superior endplate vishnu ears intact as does the L2 superior endplate. Conus medullaris is at normal level (T12-L1). There is no evidence of conus mass nor subjacent clump ing of intrathecal nerve roots to suggest arachnoiditis. The distal thecal sac appears unremarkable. There is no evidence of Tarlov intrasacral cysts nor other significant findings within the sacral can al With respect to the individual disc levels... T12-L1: No disc herniation. No central canal stenosis. No foraminal stenosis. No facet arthropathy L1-2: Normal disc height and signal. No disc herniation nor central canal stenosis.No foraminal steno sis L2-3: This level exhibits mild posterior bony ridging and symmetrical annular bulging but without a p rominent disc herniation. Central canal dimensions are lower normal. There is no evidence of forami nal stenosis. No significant facet arthropathy L3-4: Mild decreased disc height. Preserved disc hydration signal there is mild symmetrical annular bulging. This extends into the floor of the exiting neural foramina bilaterally. However, central c anal dimensions are lower normal. There is also no significant foraminal stenosis. No prominent fac et arthropathy. L4-5: Normal disc height and signal. Symmetrical annular bulging but no dominant disc herniation. C entral canal dimensions are lower normal. There is no significant foraminal stenosis. Mild facet de generative changes. No prominent ligamentum flavum hypertrophy. L5-S1: Normal disc height and signal. Central posterior subligamentous annular bulging but without a dominant disc herniation. Central canal dimensions are within normal limits. No significant forami nal stenosis. No facet arthropathy. Soft tissues: paraspinal soft tissues appear unremarkable. IMPRESSION: 1. Mild disc findings as described above but without a dominant disc herniation and no evidence of ce ntral spinal canal stenosis nor foraminal stenosis nor significant facet arthropathy. 2. When compared to the plain films of June 2019 there has been interval compression wedge fractu re of the T12 vertebra with some residual subacute intraosseous signal. Also slight height loss of L 1 superior endplate (no acute signal) and there are superior endplate Schmorl's node invagination fin dings at L3 and L4 level which are more impressive than expected when looking at the plain films of [facility]2019. Recommend correlation with recent medical history such as steroid medication. There a re no typical lesion multiple myeloma but 1 might also consider testing for this, given the multileve l superior endplate findings. Also correlation with any history of recent trauma. DATA REPOSITORY:
== END 2021-02-08 01:54 ==
PROVIDERS: PCP Family Medicine; Visit Provider Family Medicine
DX: S22.080A Wedge compression fracture of T11-T12 vertebra, initial encounter for closed fracture; M47.896 Other spondylosis, lumbar region
CPT/HCPCS: 72148

== ENCOUNTER → 2021-09-13 16:29 | Outpatient (CLI) | payer MEDICAID, SELFPAY ==
--- NOTE | 2021-09-13 15:15 | DI.RAD_ITS ---
Exam(s) XR RIBS LT W PA LAT CHEST CLINICAL HISTORY Rib fracture, pneumothorax? Pleurodynia R07.81. COMPARISON: CR CHEST 2 VIEWS PA,LAT from 10/03/[address] CHEST/ABD/PEL W from 12/31/2019 MR MR LUMBAR SPINE WO from 02/08/2021 TECHNIQUE:: PA and lateral views of the chest and four views the left ribs were performed. FINDINGS: LUNGS: Bilateral pulmonary scarring greater in the upper lobes. Emphysematous changes., lungs otherw ise clear. pleural thickening bilateral lung apices. No pneumothorax. No pleural effusion. HEART: Normal. MEDIASTINUM: Normal. BONES: No displaced rib fracture is seen. Stable moderate compression fracture T12. No bony destru ctive lesion is seen. OTHER FINDINGS: None. IMPRESSION: 1. Old T12 compression fracture. No acute rib or spine fracture. Scarring and emphysematous changes in the upper lobes. No acute pulmonary findings.
== END ==
PROVIDERS: PCP Family Medicine; Visit Provider Family Medicine
DX: R07.81 Pleurodynia (principal); J43.8 Other emphysema; M48.54XD Collapsed vertebra, not elsewhere classified, thoracic region, subsequent encounter for fracture with routine healing
CPT/HCPCS: 71046; 71100

== ENCOUNTER → 2021-10-12 01:11 | Outpatient (CLI) | payer MEDICAID, SELFPAY ==
--- NOTE | 2021-10-12 07:00 | DI.CTLCSR_ITS ---
Exam(s) CT CHEST LUNG CANCER SCREEN EXAM: CT CHEST LUNG CANCER SCREEN CLINICAL HISTORY: Screening for lung cancer,current smoker, f17.210. TECHNIQUE: Imaging Protocol: Low Dose Technique CONTRAST MATERIAL: None COMPARISON: CT CT CHEST/ABD/PEL W from 12/31/2019 CR XR RIBS LT W PA LAT CHEST from 09/13/2021 FINDINGS: CHEST: LUNGS: Advanced emphysematous COPD again noted. In the right lower lobe there is now enydgg-worvq-dh pe nodular infiltrate evident in the lateral basal segment, not previously present. In the right upp er lobe region there is pleural based scar tissue associated with bullae that appears to have increas ed, particularly in its inferior aspect (series 2/image 37), somewhat suspicious. There is no overly ing rib destruction. No pleural effusions. In the opposite-right lung there are no new significant focal findings. No new findings in the trachea and mainstem bronchi. MEDIASTINUM: There is no obvious hilar nor mediastinal adenopathy. CARDIAC: Heart size is normal. There is no pericardial effusion.Caliber of the thoracic aorta is wit hin normal limits. OTHER: No significant adrenal masses. OSSEOUS: There is a subacute mildly displaced fracture of the posterior aspect of the left 8th and 9t h ribs. These exhibit mild callus formation. On the right side there is a hip almost completely hea led fracture of the posterior 9th rib compression fractures in the lower thoracic spine again noted.. IMPRESSION: 1. Advanced COPD changes again noted. However, in the right lower lobe there is now ground-glass reg ional nodular infiltrate. In addition, there is increased pleural based infiltrate in the right uppe r lobe at a region of bullae but this appears definitely increased when compared to the prior CT scan of December 2019 no overlying rib destruction at this level. No pleural effusions. Recommend repeat CT scan in 3 months. 2. Subacute appearing fractures of the left 8th and 9th ribs are noted, not previously present in Dec. 3. Lung RADS Cat 4A - Suspicious: Findings for which additional diagnostic testing and/or tissue samp ling recommended. Lung-RADS 1.0 CATEGORIES: Category 0 - Prior chest CT exam(s) being located for comparison. Category 1 - Annual screening in 12 months. No nodules or definitely benign nodules. Category 2 - Annual screening in 12 months. Benign appearance. Nodules with low likelihood of becomin g active cancer. Category 3 - 6-month follow-up. Probably benign. Short-term follow-up suggested. Nodules with low lik elihood of becoming active cancer. Category 4A - 3-month follow-up and CT/PET if >8 mm in size. Suspicious finding. Findings which requi re additional testing. Category 4B - Findings which require additional testing and tissue sampling. Category 4X - Category 3 or 4 nodules with additional features or imaging findings that increases the suspicion of malignancy. Modifier S- Potentially clinically significant findings (non lung cancer) RADIATION DOSE DELIVERED: 77.07mGy.cm Total DLP 1.84mGyCTDIvol DATA REPOSITORY: All CT scans at this facility are submitted to the National Radiology Data Registry (NRDR) Dose Index Registry (DIR) with the [employer] ([employer]). RADIATION OPTIMIZATION: All CT scans at this facility use at least one of these dose optimization te chniques: automated exposure control; mA and/or kV adjustment per patient size (includes targeted exa ms where dose is matched to clinical indication); or iterative reconstruction.
== END ==
PROVIDERS: PCP Family Medicine; Visit Provider Family Medicine
DX: Z12.2 Encounter for screening for malignant neoplasm of respiratory organs (principal); F17.210 Nicotine dependence, cigarettes, uncomplicated; J44.9 Chronic obstructive pulmonary disease, unspecified; R91.8 Other nonspecific abnormal finding of lung field; S22.42XA Multiple fractures of ribs, left side, initial encounter for closed fracture
CPT/HCPCS: 71271

== ENCOUNTER 2021-10-12 03:04 | Outpatient (CLI) | payer MEDICAID, SELFPAY ==
[2021-10-12 09:34] LABS: Absolute Eosinophil Count 0.09 10^3/uL (0.0-0.7); Absolute Lymphocyte Count 2.01 10^3/uL (1.2-3.4); Absolute Neutrophil Count 11.23 10^3/uL (1.2-6.7); Basophils % 0.7; Eosinophils % 0.6; HGB 14.8 g/dL (13.5-17.5); Immature Grans % 0.7; Lymphocytes % 13.6; MCH 31.6 pg (27.0-33.0); MCHC 32.9 % (32.0-36.0); MCV 96 fL (80-95); MPV 9.8 fL (8.0-11.0); Monocytes % 8.6; Neutrophils % 75.8; Platelet Count 254 10^3/uL (130-400); RBC 4.69 10^6/uL (4.36-5.78); RDW 15.2 % (11.8-14.1); RDW-SD 53.2 fL; WBC 14.81 10^3/uL (4.4-10.8)
[2021-10-12 09:36] LABS: Absolute Monocyte Count 1.27 10^3/uL (0.1-0.8)
[2021-10-12 10:28] LABS: ALT 39 U/L (16-63); AST 12 U/L (15-37); Albumin 3.1 g/dL (3.4-5.0); Alkaline Phosphatase 106 U/L (46-116); Anion Gap 9.2 mmol/L (3-11); BUN 5 mg/dL (7-18); Bilirubin, Total 0.3 mg/dL (0.2-1.0); CO2 27.8 mmol/L (21.0-32.0); CREATININE 1.1 mg/dL (0.70-1.30); Calcium 8.4 mg/dL (8.5-10.1); Calculated LDL 55 mg/dL (<100); Chloride 101 mmol/L (98-107); Cholesterol 120 mg/dL (<200); Glucose 102 mg/dL (74-106); HDL Cholesterol 47 mg/dL (40-60); Potassium 3.7 mmol/L (3.5-5.1); Sodium 138 mmol/L (136-145); Total Protein 6.1 g/dL (6.4-8.2); Triglyceride 94 mg/dL (<150)
[2021-10-13 10:02] LABS: HIV-1/2 Ag & Ab Screen Negative (Negative)
[2021-10-13 10:14] LABS: Hepatitis C Ab w Rflx HCV PCR Negative (Negative)
== END 2021-10-12 03:05 | disposition home or self-care (01) ==
LOC: LBO 03:04
PROVIDERS: PCP Family Medicine; Visit Provider Family Medicine
DX: M35.3 Polymyalgia rheumatica (principal); Z79.52 Long term (current) use of systemic steroids; Z11.3 Encounter for screening for infections with a predominantly sexual mode of transmission; Z11.4 Encounter for screening for human immunodeficiency virus [HIV]; Z11.59 Encounter for screening for other viral diseases
CPT/HCPCS: 36415; 80053; 80061; 86803; 87389; 85025

== ENCOUNTER 2021-10-23 21:59 | Emergency (ER) | payer MEDICAID, SELFPAY ==
--- NOTE | 2021-10-23 22:00 | RT.EKG_ITS ---
APPROVED REPORT Exam: Resting ECG Reason for Exam: chest and back pain Patient Location: E HR:88 bpm ECG Measurements Heart Rate 88 AXIS ID 136 P 62 QRSd 108 QRS 84 QT 383 T 60 QTc 463 Conclusion Sinus rhythm...normal P axis, V-rate 60- 99 Normal [place] I have reviewed and interpreted ECG and agree with software generated interpretation. There are no significant changes compared to prior EKG performed on 08/27/2014 at 22:14.
--- NOTE | 2021-10-23 22:02 | W.ED.GENAD ---
Discharge Plan Disposition Patient Disposition: HOME Condition: Improving Discharge Details Clinical Impression: Back pain Primary Care Provider: Gabino Florian ED Provider: Antonio Lassiter [place] Meds and New Rx's Prescriptions: New orphenadrine citrate 100 mg tablet extended release 100 mg PO BID Qty: 14 0RF Continued B-complex with vitamin C Tablet 1 tab PO DAILY prednisone 10 mg tablet 10 mg PO DAILY MDD 15 56 Days Qty: 56 0RF Rx Instructions: Take with 5 mg tablets for one month, then 2.5 mg tablets the next month prednisone 5 mg tablet 5 mg PO DAILY MDD 15 Qty: 28 0RF prednisone 2.5 mg tablet 2.5 mg PO DAILY MDD 12.5 Qty: 28 0RF Rx Instructions: Take with 10 mg tabs after finishing one month of 5 mg tabs oxycodone 20 mg tablet 20 mg PO BID MDD 220 PRN (Reason: pain) Qty: 56 0RF oxycodone 30 mg tablet,oral only,ext.rel.12 hr 30 mg PO BID MDD 220 Qty: 56 0RF oxycodone 30 mg tablet 30 mg PO Q6H MDD 220 PRN (Reason: pain) Qty: 112 0RF famotidine 20 mg tablet 20 mg PO DAILY Qty: 90 3RF methotrexate sodium 10 mg tablet 10 mg PO QWEEK Qty: 30 0RF folic acid 1 mg tablet 1 mg PO DAILY Qty: 90 3RF lisinopril 20 mg tablet 30 mg PO DAILY Qty: 90 3RF Caltrate 600-D Plus Minerals 600 mg calcium- 800 unit-50 mg tablet 1 tab PO DAILY Qty: 90 3RF Rx Instructions: give with meal/snack naloxone [Narcan] 4 MG spray,non-aerosol 4 mg NS PRN PRNQty: 1 Rx Instructions: One spray into one nostril and call 911 for opioid overdose, repeat in 5 min acetaminophen [Tylenol Extra Strength] 500 MG tablet 1,000 mg PO DAILY propranolol 20 mg tablet 20 mg PO BID Qty: 180 3RF oxybutynin chloride 5 mg tablet 5 mg PO BID-TID MDD 15 mg PRN (Reason: bladder spasms) Qty: 180 3RF testosterone [AndroGel] 20.25 mg/1.25 gram (1.62 %) gel in metered-dose pump 3 pump TP DAILY Qty: 75 5RF Rx Instructions: apply 2 pumps over max area of ONE upper arm and shoulder, 1 pump over OTHER upper arm and shoulder tamsulosin 0.4 mg capsule 0.8 mg PO DAILY Qty: 180 3RF Rx Instructions: for lower urinary symptoms Discontinued cyclobenzaprine 10 mg tablet 10 mg PO TID PRN (Reason: muscle spasm) Qty: 90 0RF Discharge Instructions Instructions: Back Pain (ED) Additional Instructions: You were seen for worsening back pain. Your laboratory studies were unremarkable. Your CT scan shows no new fractures and no acute changes. Your pain responded to a dose of muscle relaxer and nonsteroidal. We will discontinue your cyclobenzaprine for now. We will start new muscle relaxer called orphenadrine. May continue your oxycodone. Contact your primary care Monday for follow-up. Return to ED for fever, difficulty breathing, vomiting, neurologic change, other concerns Referrals: Gabino Florian DO [Primary Care Provider] - 2 days Medical Decision Making Patient presenting with lower back pain that he describes as different from his chronic pain. His vital signs are good. He has no midline back tenderness. He is not short of breath so much as it hurts to take a breath or to move. He is on high-dose steroids and has had multiple compression fractures and rib fractures with minimal trauma. Does not appear to have bony tenderness and I think this is mostly spasm. He does not have a true allergy to nonsteroidals. IV established and ketorolac and diazepam given. Laboratory studies sent. EKG done from triage is unchanged from previous. Noncontrast CT of the chest abdomen pelvis ordered. Patient's laboratory studies are unremarkable. He does have a slightly elevated white count but has a normal differential. His troponin is negative. CT scan does not show any acute or new fractures. No significant abdominal pathology. Chronic emphysematous changes of the lungs. Patient pain and ability to lie on stretcher improved after medications. Again suspect related to muscle spasm and will discontinue patient's cyclobenzaprine and start him on orphenadrine. May continue prescribed oxycodone as before. Contact primary care for follow-up on Monday. Return precautions provided Medical Records Medical records reviewed: Yes I reviewed the patient's medical records. Lab Data Lab results reviewed: Yes I reviewed the patient's lab results. ECG Data Attestation: I personally reviewed and interpreted this ECG (s) as follows: Prior ECG tracings: available for review Interpretation: see ekg HPI General Mode of arrival: ambulatory. Date/Time Provider Initiated Documentation: 10/23/21 22:02. Limitations to Documentation: no limitations. Information obtained by: patient, RN notes reviewed and old records reviewed. HPI Narrative: Patient presents to ED with right-sided back pain which is different than his chronic pain related to previous compression fractures and rib fractures. Patient reports a 3 to 4-day history of back pain which actually seem to be left-sided initially but tonight has been mostly right-sided. Has difficulty moving because of the pain. Also makes it difficult to take a breath because of the pain. Denies having chest pain. Does feel like his abdomen is somewhat bloated but he denies having any fever, vomiting, diarrhea. He does report passing flatus and having bowel movements. He denies any recent falls or injuries. He was seen by primary care earlier this month and had his prescription for oxycodone and oxycodone ER refilled. He reports that the current pain is different and that the oxycodone is not helping. He denies any numbness, weakness in the legs. He denies bladder or bowel incontinence. Related Data Home Medications Medication Instructions Recorded Confirmed naloxone 4 mg/actuation nasal 4 mg NS PRN PRN #1 unit 07/25/16 10/23/21 spray (Narcan) acetaminophen 500 mg tablet 1,000 mg PO DAILY 04/03/17 10/23/21 (Tylenol Extra Strength) B-complex with vitamin C 1 tab PO DAILY 11/02/20 10/23/21 propranolol 20 mg tablet 20 mg PO BID #180 tabs 02/23/21 10/23/21 famotidine 20 mg tablet 20 mg PO DAILY #90 tabs 04/09/21 10/23/21 folic acid 1 mg tablet 1 mg PO DAILY #90 tabs 06/01/21 10/23/21 methotrexate sodium 10 mg tablet 10 mg PO QWEEK #30 tabs 06/01/21 10/23/21 oxybutynin chloride 5 mg tablet 5 mg PO BID-TID PRN bladder spasms 08/06/21 10/23/21 #180 tabs testosterone 20.25 mg/1.25 gram 3 pump topical DAILY #75 grams 08/06/21 10/23/21 (1.62 %) transdermal gel pump (AndroGel) calcium 600 mg-D3 800 unit-mag11 1 tab PO DAILY #90 tabs 08/24/21 10/23/21 50 vn-ozsp-gcqgio-seamus-s.borat tablet (Caltrate 600-D Plus Minerals) lisinopril 20 mg tablet 30 mg PO DAILY #90 tabs 08/24/21 10/23/21 tamsulosin 0.4 mg capsule 0.8 mg PO DAILY #180 tab-caps 10/05/21 10/23/21 oxycodone 20 mg tablet 20 mg PO BID PRN pain #56 tabs 10/14/21 10/24/21 oxycodone 30 mg tablet 30 mg PO Q6H PRN pain #112 tabs 10/14/21 10/24/21 oxycodone 30 mg tablet,crush 30 mg PO BID #56 tabs 10/14/21 10/23/21 resistant,extended release 12 hr prednisone 10 mg tablet 10 mg PO DAILY 56 days #56 tabs 10/14/21 10/23/21 prednisone 2.5 mg tablet 2.5 mg PO DAILY #28 tabs 10/14/21 10/23/21 prednisone 5 mg tablet 5 mg PO DAILY #28 tabs 10/14/21 10/23/21 orphenadrine citrate 100 mg 100 mg PO BID #14 tabs 10/24/21 tablet,extended release Previous Rx's Medication Instructions Recorded propranolol 20 mg tablet 20 mg PO BID #180 tabs 02/23/21 famotidine 20 mg tablet 20 mg PO DAILY #90 tabs 04/09/21 folic acid 1 mg tablet 1 mg PO DAILY #90 tabs 06/01/21 methotrexate sodium 10 mg tablet 10 mg PO QWEEK #30 tabs 06/01/21 oxybutynin chloride 5 mg tablet 5 mg PO BID-TID PRN bladder spasms 08/06/21 #180 tabs testosterone 20.25 mg/1.25 gram 3 pump topical DAILY #75 grams 08/06/21 (1.62 %) transdermal gel pump (AndroGel) calcium 600 mg-D3 800 unit-mag11 1 tab PO DAILY #90 tabs 08/24/21 50 bd-acij-lldvcn-seamus-s.borat tablet (Caltrate 600-D Plus Minerals) lisinopril 20 mg tablet 30 mg PO DAILY #90 tabs 08/24/21 tamsulosin 0.4 mg capsule 0.8 mg PO DAILY #180 tab-caps 10/05/21 oxycodone 20 mg tablet 20 mg PO BID PRN pain #56 tabs 10/14/21 oxycodone 30 mg tablet 30 mg PO Q6H PRN pain #112 tabs 10/14/21 oxycodone 30 mg tablet,crush 30 mg PO BID #56 tabs 10/14/21 resistant,extended release 12 hr prednisone 10 mg tablet 10 mg PO DAILY 56 days #56 tabs 10/14/21 prednisone 2.5 mg tablet 2.5 mg PO DAILY #28 tabs 10/14/21 prednisone 5 mg tablet 5 mg PO DAILY #28 tabs 10/14/21 orphenadrine citrate 100 mg 100 mg PO BID #14 tabs 10/24/21 tablet,extended release Allergies Allergy/AdvReac Type Severity Reaction Status Date / Time diclofenac AdvReac Severe dyspepsia Verified 10/23/21 22:14 with all nsaids duloxetine HCl AdvReac Unknown lethargic, Verified 10/23/21 22:14 [From Cymbalta] nausea/vomiting,diarrhea ibuprofen AdvReac Unknown GASTRIC SX Verified 10/23/21 22:14 morphine sulfate AdvReac Unknown SEDATION, Verified 10/23/21 22:14 [From MS Contin] HUNG OVER nabumetone AdvReac Unknown GI PAIN Verified 10/23/21 22:14 General CURRY: 3 Review of Systems Narrative: 02/25 Review of Systems completed and is negative except as stated above in HPI (Systems reviewed: Const, Eyes, ENT, Resp, CV, GI, , MSK, Skin, Neuro) PFSH All Active Problems (Updated 10/24/21 @ 00:46 by Antonio Lassiter MD) Back pain (Acute) Rib pain (Acute) Compression fracture of T12 vertebra (Acute) Unintentional weight loss (Acute) Compression fracture of lumbar vertebra (Acute) Tobacco dependence syndrome (Chronic 05/15/84) 1 PPS; unable to stop, multiple tries; 2019- reduced on buproprion Long-term corticosteroid use (Chronic) Finished course December 2019 Benign familial tremor (Acute) Acute cholecystitis (Acute 09/22/12) 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) Lower urinary tract symptoms (Acute 08/01/14) Nocturia (Acute 05/12/14) Status post epidural steroid injection (Acute 12/18/14) Urgency of urination (Chronic 11/03/15) Primary fibromyalgia syndrome (Chronic 01/14/12) DR BAYRON DEVI 01/2012; H/O DR BALDERAS PRIOR TO THAT Palpitations (Chronic 11/28/16) h/o 08/2014, Holter: freq PAC's with no SVT; Holter 11/2016: okay; ZIO patch 02/2017 pending Other chronic pain (Chronic 05/15/05) STARTED WITH FOOT PAIN, COMPLEX REGIONAL PAIN SYN FOLLOWING CHAIN SAW INJURY L FOOT ; LATER OTHER BACK, NECK, ARMS; opioids <2005; MRI 11/2014; pain clinic -12/2014 (last summary note 04/07/16; Lumbar epidural 09/01/16 Midline low back pain with sciatica (Chronic 06/23/11) CT neg 02/2014; MRI 11/2014: L L4-5 disc bulge, sciatica L; Dr Arambula, epidural 12/19/14 not effective; sometimes radiate either leg, Dr Marlow neuro eval Hypogonadism in male (Chronic 04/12/16) elevated gonadotrophin (not caused by opioid rx) Pain, joint, hand, right (Chronic) swelling MCP and [facility] R hand, x-ray neg, Dr Balderas, related to overuse. ([id number]); Dr Anastasia Devi 2011 Chronic fatigue (Chronic 04/05/16) incr frequency over 6 months Alcohol use disorder, mild, in sustained remission, abuse (Chronic 02/12/99) ABSTINENT SINCE 02/1999; HAD TO BE SOBER X 3YR TO GET LICENSE 2002 Adjustment disorder with mixed anxiety and depressed mood (Chronic 03/17/16) Lumbar radicular pain (Chronic) Tobacco dependence syndrome (Chronic) History of surgery (Chronic) Appendectomy. Multiple surgeries for repair of left foot after chainsaw injury. Lap kinjal 09/22/[address] Aubrey Nguyen. Gastroesophageal reflux disease (Chronic) Fibromyalgia (Chronic) Medical History (Updated 10/24/21 @ 00:46 by Antonio Lassiter MD) Chronic pain syndrome (05/15/89) Essential hypertension Gastroesophageal reflux disease Lower urinary tract symptoms (LUTS) (08/01/14) responsive to tamsulosin 0.8mg Other mixed anxiety disorders (06/08/15) Polymyalgia rheumatica Surgical History (Updated 10/23/21 @ 22:07 by Antonio Lassiter MD) S/P appendectomy S/P cholecystectomy S/P foot surgery, left Family History Mother No problems noted. Father Personal history of malignant neoplasm prostate CA Brother , heart at age 57. 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 HEENT: NC/AT. Normal facial exam. Eyes: Normal conjunctiva and sclera. Neck: Supple. Trachea midline. Lungs: Normal respiratory effort. Lungs are clear. Cor: RRR without murmur/gallop. Good radial pulses. GI: Soft. NT. Does seem distended to some degree. Back: No midline tenderness. Marked decreased ROM of lumbar area due to pain. Awkward positioning to achieve comfort. Neuro: A+O x 3. Normal speech, mentation. Cranial nerves II - XII grossly intact. No gross motor or sensory deficit. Ext: No C/C/E. Skin: Warm and dry without rash.
[2021-10-23 22:05] VITALS: BP 190/113; PULSE 92; RESP 21; TEMP 36.1; O2SAT 100
[2021-10-23 22:10] VITALS: RESP 21
--- NOTE | 2021-10-23 22:15 | DI.CT_ITS ---
Exam(s) CT CHEST/ABD/PEL WO EXAM: CT CHEST/ABD/PEL WO CLINICAL HISTORY: lower thoracic/rib pain lumbar pain distended abd. TECHNIQUE: Imaging Protocol: Axial computed tomography images with coronal and sagittal reformatted images were created and reviewed CONTRAST MATERIAL: Intravenous: Omnipaque 350 Contrast volume:100 ml Oral: yes / no COMPARISON: CT CT CHEST/ABD/PEL W from 12/31/2019 MR MR LUMBAR SPINE WO from 02/08/[address] CHEST LUNG CANCER SCREEN from 10/12/2021 FINDINGS: CHEST: Tracheobronchial tree: Patent where visualized. Mediastinum and [place]: No dominant adenopathy or fluid collection. Pulmonary parenchyma: Severe emphysematous changes. Scarring and peripheral bulla greater in the upp er lobes. No acute infiltrates. Minimal basilar atelectasis. No consolidation or dominant measurab le mass. Pleura: No effusion or pneumothorax. Lymph nodes: Within normal limits. Aorta: Thoracic portion non-dilated. Heart: Normal size. Bones: No acute fractures. Old left 7 the and 8th rib fractures. Old right 9th rib fracture. Stabl e mild to moderate compression fractures of T10 and T12. No lytic or blastic lesions. ABDOMEN: Liver: Enlarged fatty liver.. No measurable mass. Gallbladder and biliary tract: Status post cholecystectomy. No radiodense calculus or dilation. Pancreas: Normal density, no abnormal calcifications or inflammatory process. Spleen: Normal. Kidneys: Normal size, contour and axis. No radiodense stones or obstructive uropathy. No masses seen. Adrenal glands: No masses seen. Aorta: Abdominal portion non-dilated. Atherosclerotic changes. Lymph nodes: Within normal limits. Soft tissues: Unremarkable. PELVIS: Bladder: Symmetric distention, no gross wall thickening. Bowel: No obstruction or bowel wall thickening. Appendix not seen. No evidence of appendicitis. Peritoneal cavity: No ascites, collection or mesenteric inflammatory response. Bones: Stable mild compression of the superior endplate of L 1, L 3 and L4. No acute fractures. Reproductive organs: Within normal limits. IMPRESSION: Old bilateral rib fractures. Severe emphysematous changes. Stable appearance of lower thoracic and lumbar spine compression fractures. No new fractures are identified. No acute abnormality in the ch est abdomen or pelvis.. RADIATION DOSE DELIVERED: 1,114.42mGy.cm Total DLP DATA REPOSITORY: All CT scans at this facility are submitted to the National Radiology Data Registry (NRDR) Dose Index Registry (DIR) with the [employer] (ACR). RADIATION OPTIMIZATION: All CT scans at this facility use at least one of these dose optimization te chniques: automated exposure control; mA and/or kV adjustment per patient size (includes targeted exa ms where dose is matched to clinical indication); or iterative reconstruction.
[2021-10-23 22:43] LABS: Abs Immature Grans 0.08 10^3/uL (0.0-0.06); Absolute Basophil Count 0.08 10^3/uL (0.0-0.2); Absolute Eosinophil Count 0.06 10^3/uL (0.0-0.7); Absolute Lymphocyte Count 2.79 10^3/uL (1.2-3.4); Absolute Monocyte Count 1.14 10^3/uL (0.1-0.8); Absolute Neutrophil Count 9.64 10^3/uL (1.2-6.7); Basophils % 0.6; Eosinophils % 0.4; HCT 47.4 % (40.0-50.0); HGB 15.4 g/dL (13.5-17.5); Immature Grans % 0.6; Lymphocytes % 20.2; MCH 30.9 pg (27.0-33.0); MCHC 32.5 % (32.0-36.0); MCV 95 fL (80-95); MPV 9.9 fL (8.0-11.0); Monocytes % 8.3; Neutrophils % 69.9; Platelet Count 331 10^3/uL (130-400); RBC 4.98 10^6/uL (4.36-5.78); RDW 15.1 % (11.8-14.1); RDW-SD 52.7 fL; WBC 13.79 10^3/uL (4.4-10.8)
[2021-10-23] MEDS: diazePAM 10 MG/2 ML SYR IVP (22:49)
[2021-10-23] MEDS: Ketorolac 30 MG/ML VIAL IVP (22:50)
[2021-10-23 23:00] LABS: ALT 40 U/L (16-63); AST 17 U/L (15-37); Albumin 3.2 g/dL (3.4-5.0); Alkaline Phosphatase 143 U/L (46-116); Anion Gap 7.9 mmol/L (3-11); BUN 7 mg/dL (7-18); Bilirubin, Total 0.2 mg/dL (0.2-1.0); CO2 32.1 mmol/L (21.0-32.0); Calcium 9.1 mg/dL (8.5-10.1); Chloride 98 mmol/L (98-107); Glucose 100 mg/dL (74-106); Lipase 66 U/L (73-393); Magnesium 2.4 mg/dL (1.8-2.4); Potassium 3.8 mmol/L (3.5-5.1); Sodium 138 mmol/L (136-145); Total Protein 7.3 g/dL (6.4-8.2); Troponin I < 50 ng/L (<or=60)
--- NOTE | 2021-10-24 00:18 | DI.VRAD_ITS ---
PROCEDURE INFORMATION: Exam: CT Chest Without Contrast; Diagnostic Exam date and time: 10/23/2021 11:02 PM Age: 51 years old Clinical indication: Other: Lower thoracic/rib pain lumbar pain distended abd TECHNIQUE: Imaging protocol: Diagnostic computed tomography of the chest without contrast. COMPARISON: CT CHEST LUNG CANCER SCREEN 10/12/2021 9:04 AM FINDINGS: Lungs: Diffuse emphysematous changes. Atelectatic changes at the lung bases. Pleural spaces: Unremarkable. No pneumothorax. No pleural effusion. Heart: Unremarkable. No cardiomegaly. No pericardial effusion. Lymph nodes: Unremarkable. No enlarged lymph nodes. Vasculature: Unremarkable. No aortic aneurysm. Bones/joints: Remote left 7th and 8th posterior rib fractures. Posterior remote right 9th rib fracture. Soft tissues: Unremarkable. IMPRESSION: No acute findings. PROCEDURE INFORMATION: Exam: CT Abdomen And Pelvis Without Contrast Exam date and time: 10/23/2021 11:02 PM Age: 51 years old Clinical indication: Other: Lower thoracic/rib pain lumbar pain distended abd TECHNIQUE: Imaging protocol: Computed tomography of the abdomen and pelvis without contrast. COMPARISON: CT CHEST/ABD/PEL W 12/31/2019 9:35 AM FINDINGS: Liver: Normal. No mass. Gallbladder and bile ducts: Cholecystectomy. Pancreas: Normal. No ductal dilation. Spleen: Normal. No splenomegaly. Adrenal glands: Normal. No mass. Kidneys and ureters: Normal. No hydronephrosis. Stomach and bowel: Unremarkable. No obstruction. No mucosal thickening. Appendix: No evidence of appendicitis. Intraperitoneal space: Unremarkable. No free air. No significant fluid collection. Vasculature: Unremarkable. No abdominal aortic aneurysm. Lymph nodes: Unremarkable. No enlarged lymph nodes. Urinary bladder: Unremarkable as visualized. Reproductive: Unremarkable as visualized. Bones/joints: Remote Compression fractures of T10, T12, L1, L3 and L4. Soft tissues: Unremarkable. IMPRESSION: 1. No acute findings. 2. Stable remote compression fractures. Dictated and Authenticated by: Osmany Casanova MD. Ordering:LUCA Alvarez MD
[2021-10-24 00:30] VITALS: BP 140/86; PULSE 79; O2SAT 92
[2021-10-24 00:45] VITALS: BP 118/86; PULSE 78; O2SAT 90
[2021-10-24 01:00] VITALS: BP 130/82; PULSE 76; O2SAT 90
[2021-10-24] MEDS: Orphenadrine 60 MG/2 ML VIAL IM (01:17)
== END 2021-10-24 01:21 | disposition home or self-care (01) ==
PROVIDERS: Emergency Provider Emergency Medicine; PCP Family Medicine
DX: M54.50 Low back pain, unspecified (principal); G89.29 Other chronic pain; Z79.52 Long term (current) use of systemic steroids; Z79.891 Long term (current) use of opiate analgesic; I10 Essential (primary) hypertension
CPT/HCPCS: 71250; 80053; 83690; 93005; 96372; 96374; 96375; 99284; J2360; 74176; 83735; 84484; 85025; 93010; J1885; J3360

== ENCOUNTER 2021-10-25 09:02 | Inpatient (IN) | payer MEDICAID, SELFPAY ==
[2021-10-25] VITALS (111 sets, daily range): BP systolic 140–186; BP diastolic 95–119; PULSE 75–94; RESP 14–18; TEMP 35.6–36.8; O2SAT 89–98
--- NOTE | 2021-10-25 09:30 | DI.MRI_ITS ---
Exam(s) MR LUMBAR SPINE WO/W EXAM: MR LUMBAR SPINE WO/W CLINICAL HISTORY: back pain, intractable hx of immunosuppression TECHNIQUE: Multiplanar multisequence MRI of the Lumbar Spine was performed. CONTRAST MATERIAL: IV Contrast: 17 mL of Dotarem contrast administered for both thoracic and lumbar spine studies.. COMPARISON: MR MR LUMBAR SPINE WO from 02/08/[address] CHEST/ABD/PEL WO from 10/23/2021 FINDINGS: Stable moderate compression fracture with small is noted in the superior endplate of T12. Stable comp ression fractures of the superior endplates of L1, L 3 and L4. No abnormally increased signal within the vertebral bodies or abnormal postcontrast enhancement. There is some enhancement within the Schmo rl's noted T1. The marrow signal is stable . There is a large amount of epidural fat. There is no epi dural abscess. There are degenerative disc changes but no focal disc herniation. Conus medullaris vishnu ears intact. IMPRESSION: Stable appearance of compression fractures of the superior endplates of T12, L1, L2 and L3. No eviden ce of osteomyelitis or discitis or epidural abscess. DATA REPOSITORY:
--- NOTE | 2021-10-25 09:30 | DI.MRI_ITS ---
Exam(s) MR THORACIC SPINE WO/W EXAM: MR THORACIC SPINE WO/W CLINICAL HISTORY: back pain, intractable, immunosuppressed. TECHNIQUE: Multiplanar multisequence MRI of the Thoracic spine was performed. CONTRAST MATERIAL: IV Contrast: 17 mL of Dotarem contrast administered. COMPARISON: CT CT CHEST LUNG CANCER SCREEN from 10/12/[address] CHEST/ABD/PEL WO from 10/23/2021 MR MR LUMBAR SPINE WO/W from 10/25/2021 FINDINGS: There is a mild compression fracture of T10 is seen on previous CT. There is abnormal low signal on T1 weighted images abnormal high signal in T 2 and STIR images. There is abnormal contrast enhanceme nt within the vertebral body. There is also abnormal enhancement within the pedicles and proximal po rtions of the adjacent ribs. There is a small amount of abnormal enhancement within the inferior end plate of T 9. A small amount of enhancement is noted at the superior endplate of T11 as well as post erior to the vertebral bodies at these levels. There is no epidural abscess. There is prominent fat within the central canal. There is a moderate compression fracture of T12 which shows a Schmorl's n ode at the superior endplate. There is some enhancement at this location. IMPRESSION: Findings consistent with osteomyelitis of T10 superimposed on compression fracture. There is involve ment of the small portion of the inferior endplate of T9 and superior endplate of T11. Results of this exam have been verbally communicated with emergency department provider. DATA REPOSITORY:
[2021-10-25 09:46] LABS: Abs Immature Grans 0.12 10^3/uL (0.0-0.06); Absolute Eosinophil Count 0.11 10^3/uL (0.0-0.7); Absolute Monocyte Count 1.43 10^3/uL (0.1-0.8); Basophils % 0.6; Eosinophils % 0.6; HCT 45.5 % (40.0-50.0); HGB 14.7 g/dL (13.5-17.5); Immature Grans % 0.7; Lymphocytes % 14.7; MCH 30.6 pg (27.0-33.0); MCHC 32.3 % (32.0-36.0); MCV 95 fL (80-95); MPV 9.6 fL (8.0-11.0); Monocytes % 7.9; Neutrophils % 75.5; Platelet Count 321 10^3/uL (130-400); RDW 15.1 % (11.8-14.1); RDW-SD 52.1 fL; WBC 18.14 10^3/uL (4.4-10.8)
[2021-10-25 09:47] LABS: Absolute Basophil Count 0.11 10^3/uL (0.0-0.2); Absolute Lymphocyte Count 2.67 10^3/uL (1.2-3.4)
[2021-10-25] MEDS: HYDROmorphone 2 MG/ML VIAL 1 MG IVP ×2 (09:54→12:06)
[2021-10-25] MEDS: Dexamethasone 4 MG/ML VIAL IVP (09:54)
[2021-10-25 10:03] LABS: ALT 39 U/L (16-63); AST 17 U/L (15-37); Albumin 3.1 g/dL (3.4-5.0); Alkaline Phosphatase 125 U/L (46-116); Anion Gap 8.3 mmol/L (3-11); BUN 7 mg/dL (7-18); Bilirubin, Total 0.3 mg/dL (0.2-1.0); C-Reactive Protein 1.86 mg/dL (0.0-0.3); CO2 27.7 mmol/L (21.0-32.0); CREATININE 0.9 mg/dL (0.70-1.30); Calcium 8.8 mg/dL (8.5-10.1); Chloride 97 mmol/L (98-107); Glucose 109 mg/dL (74-106); Lipase 76 U/L (73-393); Potassium 3.8 mmol/L (3.5-5.1); Sodium 133 mmol/L (136-145); Total Protein 6.8 g/dL (6.4-8.2)
--- NOTE | 2021-10-25 11:35 | ED.GENADUL_ITS ---
Discharge Plan Disposition Patient Disposition: [facility] INPATIENT Condition: Serious Discharge Details Clinical Impression: Acute osteomyelitis of thoracic spine, Alcohol use disorder, mild, in sustained remission, abuse, Compression fracture of lumbar vertebra, Long-term corticosteroid use, Polymyalgia rheumatica Admit Date/Time: 10/25/21 17:17 Admit Provider: Pankaj Huynh Attending Provider: Pankaj Huynh Primary Care Provider: Gabino Florian ED Provider: Viji Viera Discharge Data Discharge Date/Time-TO BE ENTERED AT DEPARTURE: 10/25/21 18:34 Medical Decision Making <VANDANA Clement - Last Filed: 10/26/21 08:12> Patient is neurologically intact without evidence of cauda equina or cord compression syndrome He has leukocytosis 18,000 with a CRP of 1.86 MRI with evidence of osteomyelitis at T9 and 10 No evidence of epidural abscess per radiology interpretation, discussed with Dr. Hill Blood cultures and lactate ordered after evidence of osteomyelitis noted on MRI She discussed with Ellen, on-call from neurosurgery at [facility] who reviewed MRI and recommends IV antibiotics at this time and infectious disease consultation She does not feel surgical intervention is necessary at this time and the patient is stable to remain at this hospital at this time She is aware that we do not have neurosurgery or infectious disease at this facility but they have availability via [facility] Vancomycin 25 mg/kg initiated Patient remains alert and neurologically intact He has persistent pain He will receive a-year-old milligram of Dilaudid which she is tolerating well He is fully alert and oriented We are pending Hospital Bed time, patient will need admission for IV antibiotics Care transitioned to Viji tabor practitioner pending infectious disease consultation from [facility] and admission to the hospital Medical Records Medical records reviewed: Yes I reviewed the patient's medical records. Lab Data Lab results reviewed: Yes I reviewed the patient's lab results. <Viji Viera - Last Filed: 10/25/21 23:39> Patient is neurologically intact without evidence of cauda equina or cord compression syndrome He has leukocytosis 18,000 with a CRP of 1.86 MRI with evidence of osteomyelitis at T9 and 10 No evidence of epidural abscess per radiology interpretation, discussed with Dr. Hill Blood cultures and lactate ordered after evidence of osteomyelitis noted on MRI She discussed with Ellen, on-call from neurosurgery at [facility] who reviewed MRI and recommends IV antibiotics at this time and infectious disease consultation She does not feel surgical intervention is necessary at this time and the patient is stable to remain at this hospital at this time She is aware that we do not have neurosurgery or infectious disease at this facility but they have availability via [facility] Vancomycin 25 mg/kg initiated Patient remains alert and neurologically intact He has persistent pain He will receive a-year-old milligram of Dilaudid which she is tolerating well He is fully alert and oriented We are pending Hospital Bed time, patient will need admission for IV antibiotics Care transitioned to Viji Prado nurse practitioner pending infectious disease consultation from [facility] and admission to the hospital 1649: Spoke with neurosurgery MD from [facility] regarding the MRI she also recommends endocrinology consult due to patient's chronic use of steroids and resulted osteopenia and osteomyelitis. 1655: SJ: Care assumed from Anastasia ROSS pending [facility] consult with Infectious disease, and admission. In short patient is a 51-year-old male who presents to the ER with severe increased worsening pain mid T-spine patient does have leukocytosis 18,000 see arnulfo spence. Vancomycin initiated for osteomyelitis of T10. 1700: Hospitalist Amina raza to call back. 1710: Spoke with Dr. Huynh regarding patient case and details. Patient to be admitted for osteomyeltitis. Discussed plan for admission with patient who verbalized understanding and is in agreement with the plan. 1755: Spoke with Dr. Mich Mckinnon with [facility] infectious disease regarding patient case and details, I did discuss the MRI results with him he does not recommend antibiotics at this time. He recommends waiting for the blood cultures, micro and #2. A bone biopsy under interventional radiology within 1 to 2 days. This information was relayed to Dr. Huynh who is on for hospitalist at this time he verbalizes understanding and is in agreement for admission. This text was generated using Fidelisation system, please disregard any oddities of phrase or misspellings. HPI <VANDANA Clement - Last Filed: 10/26/21 08:12> General Mode of arrival: ambulatory . Date/Time Provider Initiated Documentation: 10/25/21 09:16 . Limitations to Documentation: no limitations . Information obtained by: patient . HPI Narrative: This 61-year-old gentleman with history of polymyalgia rheumatica, chronic back pain with compression fractures and rib fractures, cholecystitis, long-term steroid use, fibromyalgia presents with worsening back pain per patient. He states that he was assessed several days ago in the emergency department and has been taking his pain medication and muscle relaxants but is having worsening pain which is unusual for him. Denies any fever or chills. Denies any groin numbness or strength or sensation changes to his extremities. Denies any history of IV drug abuse he states the pain is exacerbated predominantly with ambulation and movement. He denies any associated abdominal pain, nausea, vomiting. He denies any changes in bowel or bladder. States the pain is different from his typical discomfort. He has been taking his long-term and short-term pain therapy which he has been prescribed for many years reportedly. Denies any urinary complaints. Denies hematuria. Related Data Home Medications Medication Instructions Recorded Confirmed naloxone 4 mg/actuation nasal 4 mg NS PRN PRN #1 unit 07/25/16 10/25/21 spray (Narcan) acetaminophen 500 mg tablet 1,000 mg PO DAILY 04/03/17 10/25/21 (Tylenol Extra Strength) B-complex with vitamin C 1 tab PO DAILY 11/02/20 10/25/21 propranolol 20 mg tablet 20 mg PO BID #180 tabs 02/23/21 10/25/21 famotidine 20 mg tablet 20 mg PO DAILY #90 tabs 04/09/21 10/25/21 folic acid 1 mg tablet 1 mg PO DAILY #90 tabs 06/01/21 10/25/21 methotrexate sodium 10 mg tablet 10 mg PO QWEEK #30 tabs 06/01/21 10/25/21 oxybutynin chloride 5 mg tablet 5 mg PO BID-TID PRN bladder spasms 08/06/21 10/25/21 #180 tabs testosterone 20.25 mg/1.25 gram 3 pump topical DAILY #75 grams 08/06/21 10/25/21 (1.62 %) transdermal gel pump (AndroGel) calcium 600 mg-D3 800 unit-mag11 1 tab PO DAILY #90 tabs 08/24/21 10/25/21 50 mq-fdmp-hrayqo-seamus-s.borat tablet (Caltrate 600-D Plus Minerals) lisinopril 20 mg tablet 30 mg PO DAILY #90 tabs 08/24/21 10/25/21 tamsulosin 0.4 mg capsule 0.8 mg PO DAILY #180 tab-caps 10/05/21 10/25/21 oxycodone 20 mg tablet 20 mg PO BID PRN pain #56 tabs 10/14/21 10/25/21 oxycodone 30 mg tablet 30 mg PO Q6H PRN pain #112 tabs 10/14/21 10/25/21 oxycodone 30 mg tablet,crush 30 mg PO BID #56 tabs 10/14/21 10/25/21 resistant,extended release 12 hr prednisone 10 mg tablet 10 mg PO DAILY 56 days #56 tabs 10/14/21 10/25/21 prednisone 2.5 mg tablet 2.5 mg PO DAILY #28 tabs 10/14/21 10/25/21 prednisone 5 mg tablet 5 mg PO DAILY #28 tabs 10/14/21 10/25/21 orphenadrine citrate 100 mg 100 mg PO BID #14 tabs 10/24/21 10/25/21 tablet,extended release Previous Rx's Medication Instructions Recorded propranolol 20 mg tablet 20 mg PO BID #180 tabs 02/23/21 famotidine 20 mg tablet 20 mg PO DAILY #90 tabs 04/09/21 folic acid 1 mg tablet 1 mg PO DAILY #90 tabs 06/01/21 methotrexate sodium 10 mg tablet 10 mg PO QWEEK #30 tabs 06/01/21 oxybutynin chloride 5 mg tablet 5 mg PO BID-TID PRN bladder spasms 08/06/21 #180 tabs testosterone 20.25 mg/1.25 gram 3 pump topical DAILY #75 grams 08/06/21 (1.62 %) transdermal gel pump (AndroGel) calcium 600 mg-D3 800 unit-mag11 1 tab PO DAILY #90 tabs 08/24/21 50 vv-vvzk-tgtdqd-seamus-s.borat tablet (Caltrate 600-D Plus Minerals) lisinopril 20 mg tablet 30 mg PO DAILY #90 tabs 08/24/21 tamsulosin 0.4 mg capsule 0.8 mg PO DAILY #180 tab-caps 10/05/21 oxycodone 20 mg tablet 20 mg PO BID PRN pain #56 tabs 10/14/21 oxycodone 30 mg tablet 30 mg PO Q6H PRN pain #112 tabs 10/14/21 oxycodone 30 mg tablet,crush 30 mg PO BID #56 tabs 10/14/21 resistant,extended release 12 hr prednisone 10 mg tablet 10 mg PO DAILY 56 days #56 tabs 10/14/21 prednisone 2.5 mg tablet 2.5 mg PO DAILY #28 tabs 10/14/21 prednisone 5 mg tablet 5 mg PO DAILY #28 tabs 10/14/21 orphenadrine citrate 100 mg 100 mg PO BID #14 tabs 10/24/21 tablet,extended release Allergies Allergy/AdvReac Type Severity Reaction Status Date / Time diclofenac AdvReac Severe dyspepsia Verified 10/25/21 09:13 with all nsaids duloxetine HCl AdvReac Unknown lethargic, Verified 10/25/21 09:13 [From Cymbalta] nausea/vomiting,diarrhea ibuprofen AdvReac Unknown GASTRIC SX Verified 10/25/21 09:13 morphine sulfate AdvReac Unknown SEDATION, Verified 10/25/21 09:13 [From MS Contin] HUNG OVER nabumetone AdvReac Unknown GI PAIN Verified 10/25/21 09:13 General Stated Complaint: Nk/Back Pain CURRY: 4 Review of Systems <VANDANA Clement - Last Filed: 10/26/21 08:12> All systems reviewed & are unremarkable except as noted in HPI and below PFSH <VANDANA Clement - Last Filed: 10/26/21 08:12> All Active Problems (Updated 10/26/21 @ 08:11 by VANDANA Clement) Constipation (Acute) Polymyalgia rheumatica (Acute) Chronic pain syndrome (Chronic 05/15/89) Back pain (Acute) Acute osteomyelitis of thoracic spine (Acute) Rib pain (Acute) Compression fracture of T12 vertebra (Acute) Unintentional weight loss (Acute) Compression fracture of lumbar vertebra (Acute) Tobacco dependence syndrome (Chronic 05/15/84) 1 PPS; unable to stop, multiple tries; 2020- reduced on buproprion Long-term corticosteroid use (Chronic) Finished course December 2019 Benign familial tremor (Acute) Acute cholecystitis (Acute 09/22/12) 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) Lower urinary tract symptoms (Acute 08/01/14) Nocturia (Acute 05/12/14) Status post epidural steroid injection (Acute 12/18/14) Urgency of urination (Chronic 11/03/15) Primary fibromyalgia syndrome (Chronic 01/14/12) DR BAYRON DEVI 01/2012; H/O DR BALDERAS PRIOR TO THAT Palpitations (Chronic 11/28/16) h/o 08/2014, Holter: freq PAC's with no SVT; Holter 11/2016: okay; ZIO patch 02/2017 pending Other chronic pain (Chronic 05/15/05) STARTED WITH FOOT PAIN, COMPLEX REGIONAL PAIN SYN FOLLOWING CHAIN SAW INJURY L FOOT ; LATER OTHER BACK, NECK, ARMS; opioids <2005; MRI 11/2014; pain clinic -12/2014 (last summary note 04/07/16; Lumbar epidural 09/01/16 Midline low back pain with sciatica (Chronic 06/23/11) CT neg 02/2014; MRI 11/2014: L L4-5 disc bulge, sciatica L; Dr Arambula, epidural 12/19/14 not effective; sometimes radiate either leg, Dr Marlow neuro eval Hypogonadism in male (Chronic 04/12/16) elevated gonadotrophin (not caused by opioid rx) Pain, joint, hand, right (Chronic) swelling MCP and C[facility] R hand, x-ray neg, Dr Balderas, related to overuse. (2008- 2009); Dr Anasatsia Devi 2011 Chronic fatigue (Chronic 04/05/16) incr frequency over 6 months Alcohol use disorder, mild, in sustained remission, abuse (Chronic 02/12/99) ABSTINENT SINCE 02/1999; HAD TO BE SOBER X 3YR TO GET LICENSE 2002 Adjustment disorder with mixed anxiety and depressed mood (Chronic 03/17/16) Lumbar radicular pain (Chronic) Tobacco dependence syndrome (Chronic) History of surgery (Chronic) Appendectomy. Multiple surgeries for repair of left foot after chainsaw injury. Lap kinjal 09/22/[address] Aubrey Nguyen. Gastroesophageal reflux disease (Chronic) Fibromyalgia (Chronic) Medical History (Updated 10/26/21 @ 08:11 by VANDANA Clement) Essential hypertension Gastroesophageal reflux disease Lower urinary tract symptoms (LUTS) (08/01/14) responsive to tamsulosin 0.8mg Other mixed anxiety disorders (06/08/15) Surgical History (Updated 10/23/21 @ 22:07 by Antonio Lassiter MD) S/P appendectomy S/P cholecystectomy S/P foot surgery, left Family History Mother No problems noted. Father Personal history of malignant neoplasm prostate CA Brother , heart at age 57. 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 Current gender identity: male What is your relationship status?: Panel score (0-1 are the most socially isolated patients): 1 What type of physical activity do you participate in: none Seatbelt use: always Water heater temp set <120 deg: Yes Working smoke detector in home: Yes Fire extinguisher in home: Yes Carbon monox detector in home: Yes Do you feel safe at home: Yes Do you feel safe in your relationship?: Yes Exam <VANDANA Clement - Last Filed: 10/26/21 08:12> Const General: cooperative and comfortable Nutritional Appearance: average body habitus Orientation: alert and oriented x3 HENMT Head: normal to inspection Eyes Pupils: PERRL Neck Neck: normal visual inspection Other: nontender Resp Effort & Inspection: normal respiratory effort Auscultation: clear to auscultation bilaterally Cardio Rate: regular rate Rhythm: regular rhythm Other: Distal pulses intact GI Other: Mildly distended, nontender, no CVA tenderness, no rebound or guarding, no abdominal bruit or pulsatile mass Back/Spine/Pelvis Other: Paraspinal thoracic and lumbar tenderness without any overlying rashes or lesions, no crepitus, no visible sign of trauma Skin General skin exam: no rashes or lesions noted Neuro General: patient alert Cranial Nerves: CN's II-XI intact bilaterally Cognition: normal cognition Speech: speech normal Motor: strength 5/5 throughout Sensory Exam: no sensory deficits noted Other: Negative straight leg raise bilaterally, negative Babinski, no clinical evidence of cauda equina syndrome, DTRs, strength, and sensation intact to bilateral lower extremities Distal pulses intact Extrem General: normal to inspection Other: Distal pulses intact Course <VANDANA Clement - Last Filed: 10/26/21 08:12> Vital Signs Vital signs: Vital Signs Temperature 36.4 C L 10/25/21 09:10 Pulse 94 H 10/25/21 09:10 Respiratory Rate 16 10/25/21 09:10 Blood Pressure 157/105 H 10/25/21 09:10 Pulse Oximetry 97 10/25/21 09:10 Temperature 36.4 C L 10/25/21 09:10 Pulse 94 H 10/25/21 09:10 Respiratory Rate 16 10/25/21 09:10 Respiratory Effort Non-Labored 10/25/21 09:14 Blood Pressure 157/105 H 10/25/21 09:10 Blood Pressure Position Sitting 10/25/21 09:10 Pulse Oximetry 97 10/25/21 09:10 Oxygen Delivery Method Room Air 10/25/21 09:10 Oxygen Flow Rate 0 10/25/21 09:10 Pain Level 10 10/25/21 09:54 Comment 10/25/21 09:10 Lab/Test Results Lab/Test Results: Laboratory Tests Range/Units 10/25/21 10/25/21 10/25/21 09:39 09:39 09:39 WBC (4.4-10.8) 10^3/uL 18.14 H RBC (4.36-5.78) 10^6/uL 4.80 Hgb (13.5-17.5) g/dL 14.7 Hct (40.0-50.0) % 45.5 MCV (80-95) fL 95 MCH (27.0-33.0) pg 30.6 MCHC (32.0-36.0) % 32.3 RDW (11.8-14.1) % 15.1 H Plt Count (130-400) 10^3/uL 321 MPV (8.0-11.0) fL 9.6 Immature Gran % 0.7 Neutrophils % 75.5 Lymphocytes % 14.7 Monocytes % 7.9 Eosinophils % 0.6 Basophils % 0.6 Nucleated RBC % (0.0-0.3) % 0.0 Absolute Neutrophils (1.2-6.7) 10^3/uL 13.70 H Absolute Lymphocytes (1.2-3.4) 10^3/uL 2.67 Absolute Monocytes (0.1-0.8) 10^3/uL 1.43 H Absolute Eosinophils (0.0-0.7) 10^3/uL 0.11 Absolute Basophils (0.0-0.2) 10^3/uL 0.11 Sodium (136-145) mmol/L 133 L Potassium (3.5-5.1) mmol/L 3.8 Chloride (98-107) mmol/L 97 L Carbon Dioxide (21.0-32.0) mmol/L 27.7 Anion Gap (3-11) mmol/L 8.3 BUN (7-18) mg/dL 7 Creatinine (0.70-1.30) mg/dL 0.9 Estimated GFR/1.73 m2 (mL/min/1.73m2) >= 60.00 Glucose (74-106) mg/dL 109 H Calcium (8.5-10.1) mg/dL 8.8 Total Bilirubin (0.2-1.0) mg/dL 0.3 AST (15-37) U/L 17 ALT (16-63) U/L 39 Alkaline Phosphatase (46-116) U/L 125 H C-Reactive Protein (0.0-0.3) mg/dL 1.86 H Cancelled Total Protein (6.4-8.2) g/dL 6.8 Albumin (3.4-5.0) g/dL 3.1 L Lipase (73-393) U/L 76 Range/Units 10/25/21 09:39 WBC (4.4-10.8) 10^3/uL RBC (4.36-5.78) 10^6/uL Hgb (13.5-17.5) g/dL Hct (40.0-50.0) % MCV (80-95) fL MCH (27.0-33.0) pg MCHC (32.0-36.0) % RDW (11.8-14.1) % Plt Count (130-400) 10^3/uL MPV (8.0-11.0) fL Immature Gran % Neutrophils % Lymphocytes % Monocytes % Eosinophils % Basophils % Nucleated RBC % (0.0-0.3) % Absolute Neutrophils (1.2-6.7) 10^3/uL Absolute Lymphocytes (1.2-3.4) 10^3/uL Absolute Monocytes (0.1-0.8) 10^3/uL Absolute Eosinophils (0.0-0.7) 10^3/uL Absolute Basophils (0.0-0.2) 10^3/uL Sodium (136-145) mmol/L Potassium (3.5-5.1) mmol/L Chloride (98-107) mmol/L Carbon Dioxide (21.0-32.0) mmol/L Anion Gap (3-11) mmol/L BUN (7-18) mg/dL Creatinine (0.70-1.30) mg/dL Estimated GFR/1.73 m2 (mL/min/1.73m2) Glucose (74-106) mg/dL Calcium (8.5-10.1) mg/dL Total Bilirubin (0.2-1.0) mg/dL AST (15-37) U/L ALT (16-63) U/L Alkaline Phosphatase (46-116) U/L C-Reactive Protein (0.0-0.3) mg/dL Total Protein (6.4-8.2) g/dL Albumin (3.4-5.0) g/dL Lipase (73-393) U/L Cancelled Sign Out <VANDANA Clement - Last Filed: 10/26/21 08:12> Sign Out Data: Sign Out Comment: pending ID consultation and admission Last updated by Anastasia Mukherjee PA at 10/25/21 16:19
[2021-10-25 12:35] LABS: Bilirubin Negative (Negative); Blood Trace-intact (Negative); Clarity Clear (Clear); Glucose Negative (Negative); Ketones Negative (Negative); Leukocyte Esterase Negative (Negative); Nitrite Negative (Negative); Urobilinogen 0.2 EU/dL (Up TO 0.2)
[2021-10-25 12:44] LABS: RBC 0-2 HPF (0-2); WBC Negative HPF (0-5)
[2021-10-25 12:45] LABS: Bacteria Negative HPF (Negative); C & S Indicated? No; Casts Negative LPF (Negative); Crystals Negative HPF (Negative); Epithelial Cells Rare HPF (Negative); Mucus Negative (Negative)
[2021-10-25] MEDS: Normal Saline Flush 10 ML SYR IVP (12:49)
[2021-10-25] MEDS: Gadoterate meglumine 20 ML VIAL 17 ML IVP (12:50)
--- NOTE | 2021-10-25 14:46 | NUR.NOTE ---
I agree with Ankit Viera's treatment and documentation
[2021-10-25] MEDS: HYDROmorphone 2 MG/ML VIAL IVP (15:20)
[2021-10-25] MEDS: VANCOMYCIN/WATER (PEG) 2 GM/400 ML BAG IVPB (15:46)
[2021-10-25 17:35] LABS: Source Nasal/Nares
--- NOTE | 2021-10-25 18:14 | W.PM.HP.N ---
Assessment and Plan Assessment and plan (1) Acute osteomyelitis of thoracic spine: Status: Acute Assessment and plan: admitted for pain management add lidocaine patches, schedule apap, continue home oxycodone as is. discussed with ID and no antibiotics recommended at this time. recommends bone biopsy with IR which we well try to arrange, anticipate possibly done as an outpatient discussed with DR Huynh (2) Polymyalgia rheumatica: Status: Acute Assessment and plan: on prednisone 15 mg daily continue received decadron in ED (3) Chronic pain syndrome: Status: Chronic Assessment and plan: continue home pain management add scheduled apap and lidocaine (4) Constipation: Status: Acute Assessment and plan: reslistor add bowel management. History of Present Illness History of Present Illness Chief Complaint: back pain Narrative: worsening back pain for over one week, denies trauma or injury. no fevers, no numbness or tingling distally reports constipation on prednisone for joint pain, hips knees etc 15 mg daily work up in ED includes MRI which shows compression T10 with osteomyelitis. given vancomycin in ED PFSH All Active Problems (Updated 10/25/21 @ 19:28 by Alia Umanzor NP) Constipation (Acute) Polymyalgia rheumatica (Acute) Chronic pain syndrome (Chronic 05/15/89) Back pain (Acute) Acute osteomyelitis of thoracic spine (Acute) Rib pain (Acute) Compression fracture of T12 vertebra (Acute) Unintentional weight loss (Acute) Compression fracture of lumbar vertebra (Acute) Tobacco dependence syndrome (Chronic 05/15/84) 1 PPS; unable to stop, multiple tries; 2020- reduced on buproprion Long-term corticosteroid use (Chronic) Finished course December 2019 Benign familial tremor (Acute) Acute cholecystitis (Acute 09/22/12) 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) Lower urinary tract symptoms (Acute 08/01/14) Nocturia (Acute 05/12/14) Status post epidural steroid injection (Acute 12/18/14) Urgency of urination (Chronic 11/03/15) Primary fibromyalgia syndrome (Chronic 01/14/12) DR BAYRON DEVI 01/2012; H/O DR BALDERAS PRIOR TO THAT Palpitations (Chronic 11/28/16) h/o 08/2014, Holter: freq PAC's with no SVT; Holter 11/2016: okay; ZIO patch 02/2017 pending Other chronic pain (Chronic 05/15/05) STARTED WITH FOOT PAIN, COMPLEX REGIONAL PAIN SYN FOLLOWING CHAIN SAW INJURY L FOOT ; LATER OTHER BACK, NECK, ARMS; opioids <2006; MRI 11/2014; pain clinic -12/2014 (last summary note 04/07/16; Lumbar epidural 09/01/16 Midline low back pain with sciatica (Chronic 06/23/11) CT neg 02/2014; MRI 11/2014: L L4-5 disc bulge, sciatica L; Dr Arambula, epidural 12/19/14 not effective; sometimes radiate either leg, Dr Marlow neuro eval Hypogonadism in male (Chronic 04/12/16) elevated gonadotrophin (not caused by opioid rx) Pain, joint, hand, right (Chronic) swelling MCP and CMC R hand, x-ray neg, Dr Balderas, related to overuse. ([id number]); Dr Anastasia Devi 2011 Chronic fatigue (Chronic 04/05/16) incr frequency over 6 months Alcohol use disorder, mild, in sustained remission, abuse (Chronic 02/12/99) ABSTINENT SINCE 02/1999; HAD TO BE SOBER X 3YR TO GET LICENSE 2002 Adjustment disorder with mixed anxiety and depressed mood (Chronic 03/17/16) Lumbar radicular pain (Chronic) Tobacco dependence syndrome (Chronic) History of surgery (Chronic) Appendectomy. Multiple surgeries for repair of left foot after chainsaw injury. Radha layton 09/22/[address] Aubrey Nguyen. Gastroesophageal reflux disease (Chronic) Fibromyalgia (Chronic) Medical History (Updated 10/25/21 @ 19:28 by Alia Umanzor NP) Essential hypertension Gastroesophageal reflux disease Lower urinary tract symptoms (LUTS) (08/01/14) responsive to tamsulosin 0.8mg Other mixed anxiety disorders (06/08/15) Surgical History (Updated 10/23/21 @ 22:07 by Antonio Lassiter MD) S/P appendectomy S/P cholecystectomy S/P foot surgery, left Family History Mother No problems noted. Father Personal history of malignant neoplasm prostate CA Brother , heart at age 57. 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 Current gender identity: male What is your relationship status?: Panel score (0-1 are the most socially isolated patients): 1 What type of physical activity do you participate in: none Seatbelt use: always Water heater temp set <120 deg: Yes Working smoke detector in home: Yes Fire extinguisher in home: Yes Carbon monox detector in home: Yes Do you feel safe at home: Yes Do you feel safe in your relationship?: Yes Meds Allergies and Home Medications Allergies Allergy/AdvReac Type Severity Reaction Status Date / Time diclofenac AdvReac Severe dyspepsia Verified 10/25/21 09:13 with all nsaids duloxetine HCl AdvReac Unknown lethargic, Verified 10/25/21 09:13 [From Cymbalta] nausea/vomiting,diarrhea ibuprofen AdvReac Unknown GASTRIC SX Verified 10/25/21 09:13 morphine sulfate AdvReac Unknown SEDATION, Verified 10/25/21 09:13 [From MS Contin] HUNG OVER nabumetone AdvReac Unknown GI PAIN Verified 10/25/21 09:13 Home Medications Medication Instructions Recorded Confirmed Type naloxone 4 mg/actuation nasal 4 mg NS PRN PRN #1 unit 07/25/16 10/25/21 History spray (Narcan) acetaminophen 500 mg tablet 1,000 mg PO DAILY 04/03/17 10/25/21 History (Tylenol Extra Strength) B-complex with vitamin C 1 tab PO DAILY 11/02/20 10/25/21 History propranolol 20 mg tablet 20 mg PO BID #180 tabs 02/23/21 10/25/21 Rx famotidine 20 mg tablet 20 mg PO DAILY #90 tabs 04/09/21 10/25/21 Rx folic acid 1 mg tablet 1 mg PO DAILY #90 tabs 06/01/21 10/25/21 Rx methotrexate sodium 10 mg tablet 10 mg PO QWEEK #30 tabs 06/01/21 10/25/21 Rx oxybutynin chloride 5 mg tablet 5 mg PO BID-TID PRN bladder spasms 08/06/21 10/25/21 Rx #180 tabs testosterone 20.25 mg/1.25 gram 3 pump topical DAILY #75 grams 08/06/21 10/25/21 Rx (1.62 %) transdermal gel pump (AndroGel) calcium 600 mg-D3 800 unit-mag11 1 tab PO DAILY #90 tabs 08/24/21 10/25/21 Rx 50 ph-wnka-hlwmms-seamus-s.borat tablet (Caltrate 600-D Plus Minerals) lisinopril 20 mg tablet 30 mg PO DAILY #90 tabs 08/24/21 10/25/21 Rx tamsulosin 0.4 mg capsule 0.8 mg PO DAILY #180 tab-caps 10/05/21 10/25/21 Rx oxycodone 20 mg tablet 20 mg PO BID PRN pain #56 tabs 10/14/21 10/25/21 Rx oxycodone 30 mg tablet 30 mg PO Q6H PRN pain #112 tabs 10/14/21 10/25/21 Rx oxycodone 30 mg tablet,crush 30 mg PO BID #56 tabs 10/14/21 10/25/21 Rx resistant,extended release 12 hr prednisone 10 mg tablet 10 mg PO DAILY 56 days #56 tabs 10/14/21 10/25/21 Rx prednisone 2.5 mg tablet 2.5 mg PO DAILY #28 tabs 10/14/21 10/25/21 Rx prednisone 5 mg tablet 5 mg PO DAILY #28 tabs 10/14/21 10/25/21 Rx orphenadrine citrate 100 mg 100 mg PO BID #14 tabs 10/24/21 10/25/21 Rx tablet,extended release Exam Const General: cooperative, comfortable, frail appearing and ill appearing (older than stated age) chronically Nutritional Appearance: overweight Orientation: alert, awake and oriented x3 HENMT Head: normal to inspection, normocephalic and atraumatic Mouth: oral mucosae normal Chest Chest: normal inspection of the chest Resp Effort & Inspection: normal respiratory effort Cardio Rate: regular rate Rhythm: regular rhythm GI Inspection: normal to inspection and distended Palpation: soft Auscultation: hypoactive bowel sounds Skin General skin exam: no rashes or lesions noted Extrem General: normal to inspection, full ROM and edema (trace) Laterality: bilateral Results Labs Result diagrams: 10/25/21 09:39 10/25/21 09:39 Labs: Laboratory Results - last 24 hr 10/25/21 10/25/21 10/25/21 09:39 09:39 09:39 WBC 18.14 H RBC 4.80 Hgb 14.7 Hct 45.5 MCV 95 MCH 30.6 MCHC 32.3 RDW 15.1 H Plt Count 321 MPV 9.6 Immature Gran % 0.7 Neutrophils % 75.5 Lymphocytes % 14.7 Monocytes % 7.9 Eosinophils % 0.6 Basophils % 0.6 Nucleated RBC % 0.0 Absolute Neutrophils 13.70 H Absolute Lymphocytes 2.67 Absolute Monocytes 1.43 H Absolute Eosinophils 0.11 Absolute Basophils 0.11 Sodium 133 L Potassium 3.8 Chloride 97 L Carbon Dioxide 27.7 Anion Gap 8.3 BUN 7 Creatinine 0.9 Estimated GFR/1.73 m2 >= 60.00 Glucose 109 H Calcium 8.8 Total Bilirubin 0.3 AST 17 ALT 39 Alkaline Phosphatase 125 H C-Reactive Protein 1.86 H Cancelled Total Protein 6.8 Albumin 3.1 L Lipase 76 Urine Color Urine Clarity Urine pH Ur Specific [place] Urine Protein Urine Ketones Urine Blood Urine Nitrite Urine Bilirubin Urine Urobilinogen Ur Leukocyte Esterase Urine RBC Urine WBC Ur Epithelial Cells Urine Crystals Urine Bacteria Urine Casts Urine Mucus Ur Culture Indicated? Urine Glucose COVID-19 Source 10/25/21 10/25/21 10/25/21 09:39 12:20 17:26 WBC RBC Hgb Hct MCV MCH MCHC RDW Plt Count MPV Immature Gran % Neutrophils % Lymphocytes % Monocytes % Eosinophils % Basophils % Nucleated RBC % Absolute Neutrophils Absolute Lymphocytes Absolute Monocytes Absolute Eosinophils Absolute Basophils Sodium Potassium Chloride Carbon Dioxide Anion Gap BUN Creatinine Estimated GFR/1.73 m2 Glucose Calcium Total Bilirubin AST ALT Alkaline Phosphatase C-Reactive Protein Total Protein Albumin Lipase Cancelled Urine Color Yellow Urine Clarity Clear Urine pH 6.0 Ur Specific [place] 1.010 Urine Protein Negative Urine Ketones Negative Urine Blood Trace-intact H Urine Nitrite Negative Urine Bilirubin Negative Urine Urobilinogen 0.2 Ur Leukocyte Esterase Negative Urine RBC 0-2 Urine WBC Negative Ur Epithelial Cells Rare Urine Crystals Negative Urine Bacteria Negative Urine Casts Negative Urine Mucus Negative Ur Culture Indicated? No Urine Glucose Negative COVID-19 Source Nasal/Nares Last Vital Signs Temp 36.8 C 06/13/22 14:07 Pulse 80 10/25/21 17:45 Resp 16 10/25/21 09:10 BP 162/106 H 10/25/21 17:45 Pulse Ox 98 10/25/21 17:45
[2021-10-25 18:27] LABS: COVID-19 PCR Negative (Negative)
[2021-10-25] MEDS: oxyCODONE-CR 10 MG TABCR 30 MG PO (19:25)
[2021-10-25] MEDS: oxyCODONE 10 MG TAB 30 MG PO (19:26)
[2021-10-25] MEDS: Propranolol 20 MG TAB PO (19:26)
[2021-10-25] MEDS: Lidocaine 5% Patch 2 PATCH TP (20:12)
[2021-10-25] MEDS: Polyethylene Glycol 3350 17 GM PACKET PO (20:13)
[2021-10-25] MEDS: Methylnaltrexone 12 MG/0.6 ML VIAL SC (20:13)
[2021-10-25] MEDS: Docusate Sodium 100 MG CAP PO (20:13)
[2021-10-25] MEDS: Cyclobenzaprine 10 MG TAB PO (20:13)
[2021-10-25] MEDS: Acetaminophen 500 MG TAB 1000 MG PO (20:13)
[2021-10-25] MEDS: Pantoprazole 40 MG VIAL IVP (21:29)
[2021-10-25] MEDS: Ketorolac 15 MG/ML VIAL IVP (23:55)
[2021-10-26 06:34] LABS: Platelet Count 269 10^3/uL (130-400)
[2021-10-26] MEDS: oxyCODONE 10 MG TAB 30 MG PO ×2 (06:42→17:25)
[2021-10-26] MEDS: oxyCODONE 10 MG TAB 20 MG PO (06:43)
[2021-10-26 07:00] VITALS: BP 168/109; PULSE 83; RESP 22; TEMP 36.3; O2SAT 93
[2021-10-26] MEDS: Vitamins B Comp w/C TAB 1 TAB PO (08:35)
[2021-10-26] MEDS: predniSONE 10 MG TAB 15 MG PO (08:35)
[2021-10-26] MEDS: Calcium 600mg/Vit D 200U TAB 1 TAB PO (08:35)
[2021-10-26] MEDS: oxyCODONE-CR 10 MG TABCR 30 MG PO ×2 (08:35→20:49)
[2021-10-26] MEDS: Tamsulosin 0.4 MG CAPCR 0.8 MG PO (08:35)
[2021-10-26] MEDS: Famotidine 20 MG TAB PO (08:35)
[2021-10-26] MEDS: Lisinopril 20 MG TAB 30 MG PO (08:36)
[2021-10-26] MEDS: Docusate Sodium 100 MG CAP PO ×2 (08:36→20:50)
[2021-10-26] MEDS: Propranolol 20 MG TAB PO ×2 (08:36→20:50)
[2021-10-26] MEDS: Cyclobenzaprine 10 MG TAB PO ×3 (08:36→20:50)
[2021-10-26] MEDS: Folic Acid 1 MG TAB PO (08:36)
[2021-10-26] MEDS: Acetaminophen 500 MG TAB 1000 MG PO ×3 (08:36→20:50)
[2021-10-26] MEDS: Enoxaparin 40 MG/0.4 ML SYR SC (08:37)
[2021-10-26] MEDS: Polyethylene Glycol 3350 17 GM PACKET PO ×2 (08:37→20:55)
[2021-10-26] MEDS: Nicotine 21 MG/24 HR PATCH TD (08:37)
[2021-10-26] MEDS: Patch Removal 2 EACH TP (08:37)
--- NOTE | 2021-10-26 10:15 | INITIAL_ITS ---
- If Service Date Differs Date of service: 10/26/21 Time of Service: 10:15 Care Management Initial Assess REASON FOR HOSPITALIZATION:: osteomyelitis of thoracic spine PAST MEDICAL HISTORY/PAST SURGICAL HISTORY:: All Active Problems (Updated 10/25/21 @ 19:28 by Alia Umanzor NP). Constipation (Acute). Polymyalgia rheumatica (Acute). Chronic pain syndrome (Chronic 05/15/89). Back pain (Acute). Acute osteomyelitis of thoracic spine (Acute). Rib pain (Acute). Compression fracture of T12 vertebra (Acute). Unintentional weight loss (Acute). Compression fracture of lumbar vertebra (Acute). Tobacco dependence syndrome (Chronic 05/15/84). 1 PPS; unable to stop, multiple tries; 2019- reduced on buproprion. Long-term corticosteroid use (Chronic). Finished course December 2019. Benign familial tremor (Acute). Acute cholecystitis (Acute 09/22/12). 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 Lower urinary tract symptoms (Acute 08/01/14). Nocturia (Acute 05/12/14). Status post epidural steroid injection (Acute 12/18/14). Urgency of urination (Chronic 11/03/15). Primary fibromyalgia syndrome (Chronic 01/14/12). DR BAYRON DEVI 01/2012; H/O DR BALDERAS PRIOR TO THAT. Palpitations (Chronic 11/28/16). h/o 08/2014, Holter: freq PAC's with no SVT; Holter 11/2016: okay; ZIO patch 02/2017 pending. Other chronic pain (Chronic 05/15/05). STARTED WITH FOOT PAIN, COMPLEX REGIONAL PAIN SYN FOLLOWING CHAIN SAW INJURY L FOOT ; LATER OTHER BACK, NECK, ARMS; opioids <2005; MRI 11/2014; pain clinic -12/2014 (last summary note 04/07/16; Lumbar epidural 09/01/16. Midline low back pain with sciatica (Chronic 06/23/11). CT neg 02/2014; MRI 11/2014: L L4-5 disc bulge, sciatica L; Dr Arambula, epidural 12/19/14 not effective; sometimes radiate either leg, Dr Marlow neuro eval. Hypogonadism in male (Chronic 04/12/16). elevated gonadotr ophin (not caused by opioid rx). Pain, joint, hand, right (Chronic). swelling MCP and CMC R hand, x-ray neg, Dr Balderas, related to overuse. ([id number]); Dr Anastasia Devi 2012. Chronic fatigue (Chronic 04/05/16). incr frequency over 6 months. Alcohol use disorder, mild, in sustained remission, abuse (Chronic 02/12/99). ABSTINENT SINCE 02/1999; HAD TO BE SOBER X 3YR TO GET LICENSE 2002. Adjustment disorder with mixed anxiety and depressed mood (Chronic 03/17/16). Lumbar radicular pain (Chronic). Tobacco dependence syndrome (Chronic). History of surgery (Chronic). Appendectomy. Multiple surgeries for repair of left foot after chainsaw injury. Lap kinjal 09/22/[address] Aubrey Nguyen. Gastroesophageal reflux disease (Chronic). Fibromyalgia (Chronic). Medical History (Updated 10/25/21 @ 19:28 by Alia Umanzor NP). Essential hypertension. Gastroesophageal reflux disease. Lower urinary tract symptoms (LUTS) (08/01/14). responsive to tamsulosin 0.8mg. Other mixed anxiety disor ders (06/08/15). Surgical History (Updated 10/23/21 @ 22:07 by Antonio Lassiter MD). S/P appendectomy. S/P cholecystectomy. S/P foot surgery, left PREVIOUS FUNCTIONAL STATUS/SOCIAL/FAMILY SUPPORTS:: Waqar lives in a single family home in [place] with his Mary Ellen, who is a nurse in [place]. Waqar has 3 daughters from a previous marriage. Ramana lives close by and is supportive. His other 2 daughters live [address] [facility]. 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 He considers himself disabled with chronic pain, but does not receive disability income. He is independent with ADLs and continues to drive. CURRENT FUNCTIONAL STATUS:: Waqar was sitting up in bed when CM met with him. He verbalized that he is anxious to leave but would like to speak to the doctor first to find out exactly what is going on. The provider was on her way to meet with Waqar at that time and planned to discharge him with outpatient follow up. ADVANCE DIRECTIVES:: none on file Has patient been provided with info about the portal/API?: Yes Did the patient sign up for the portal?: No CODE STATUS:: Full Code INSURANCE COVERAGE / FINANCIAL ISSUES:: Medicaid (Medicaid Managed Care) CURRENT HOME/COMMUNITY SERVICES/EQUIPMENT:: none PRIMARY CARE PHYSICIAN:: Gabino Florian POTENTIAL DISCHARGE NEEDS:: follow up with PCP and plan of care PATIENT/FAMILY EDUCATION NEEDS:: Review of discharge instructions, limitations, follow up care, activity, medications, discuss Ask Me Three TRANSPORTATION:: via private vehicle with family/friend PLAN:: Waqar may need senior care IVAB if it is determined that he does, in fact, have osteomyelitis in his thoracic spine. At this time ID at [facility] is recommending that antibiotics be held until a bone biopsy can be done and/or blood culteure become positive. Waqar will be discharged home with outpatient follow up at [facility], as well as with his PCP. He will transport via private vehicle with a friend or family member.
--- NOTE | 2021-10-26 11:35 | IN_ITS ---
PT Notes Visit Reasons: Osteomyelitis Inpatient Physical Therapy Evaluation Date: 10/26/2021 Referring Doctor: Alia Umanzor PT Orders: PT CONSULT: Acute thoracic spine pain Precautions: Fall risk Patient Profile/Admitting Diagnosis: 51-year-old male with recent diagnosis of a thoracic osteomyelitis admitted for pain control and treatment PMHX: PFSH All Active Problems?(Updated 10/25/21 @ 19:28 by Alia Umanzor, [employer] USER INTERFACE DEVELOPER) Constipation (Acute) Polymyalgia rheumatica (Acute) Chronic pain syndrome (Chronic 05/15/89) Back pain (Acute) Acute osteomyelitis of thoracic spine (Acute) Rib pain (Acute) Compression fracture of T12 vertebra (Acute) Unintentional weight loss (Acute) Compression fracture of lumbar vertebra (Acute) Tobacco dependence syndrome (Chronic 05/15/84) 1 PPS; unable to stop, multiple tries; 2019- reduced on buproprion Long-term corticosteroid use (Chronic) Finished course December 2019Benign familial tremor (Acute) Acute cholecystitis (Acute 09/22/12) 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) Lower urinary tract symptoms (Acute 08/01/14) Nocturia (Acute 05/12/14) Status post epidural steroid injection (Acute 12/18/14) Urgency of urination (Chronic 11/03/15) Primary fibromyalgia syndrome (Chronic 01/14/12) DR BAYRON DEVI 01/2012; H/O DR BALDERAS PRIOR TO THAT Palpitations (Chronic 11/28/16) h/o 08/2014, Holter: freq PAC's with no SVT; Holter 11/2016: okay; ZIO patch 02/2017 pending Other chronic pain (Chronic 05/15/05) STARTED WITH FOOT PAIN, COMPLEX REGIONAL PAIN SYN FOLLOWING CHAIN SAW INJURY L FOOT ; LATER OTHER BACK, NECK, ARMS; opioids <2005; MRI 11/2014; pain clinic - 12/2014 (last summary note 04/07/16; Lumbar epidural 09/01/16 Midline low back pain with sciatica (Chronic 06/23/11) CT neg 02/2014;? MRI 11/2014: L L4-5 disc bulge, sciatica L; Dr Arambula, epidural 12/19/14 not effective; sometimes radiate either leg, Dr Marlow neuro eval Hypogonadism in male (Chronic 04/12/16) elevated gonadotrophin (not caused by opioid rx) Pain, joint, hand, right (Chronic) swelling MCP and CMC R hand, x-ray neg, Dr Balderas, related to overuse. (2008- 2009); Dr Anastasia Devi 2011 Chronic fatigue (Chronic 04/05/16) incr frequency over 6 months Alcohol use disorder, mild, in sustained remission, abuse (Chronic 02/12/99) ABSTINENT SINCE 02/1999; HAD TO BE SOBER X 3YR TO GET LICENSE 2002 Adjustment disorder with mixed anxiety and depressed mood (Chronic 03/17/16) Lumbar radicular pain (Chronic) Tobacco dependence syndrome (Chronic) History of surgery (Chronic) Appendectomy. Multiple surgeries for repair of left foot after chainsaw injury. Lap kinjal 09/22/[address] Aubrey Nguyen.Gastroesophageal reflux disease (Chronic) Fibromyalgia (Chronic) Medical History?(Updated 10/25/21 @ 19:28 by Alia Umanzor NP) Essential hypertension Gastroesophageal reflux disease Lower urinary tract symptoms (LUTS) (08/01/14) responsive to tamsulosin 0.8mg Other mixed anxiety disorders (06/08/15) Surgical History?(Updated 10/23/21 @ 22:07 by Antonio Lassiter MD) S/P appendectomy S/P cholecystectomy S/P foot rizwana Social History/Home Situation: Owns his home and lives alone and is independent with all ADLs Current Functional Limitations: Independent with assuming the supine to sitting to standing positions with moderate discomfort and controlled movements Equipment Owned/DME: None Subjective: Patient complains of continued discomfort throughout the mid to lower thoracic spine which migrates throughout the posterior lateral ribs. This is worse with movement. Hurts with coughing or sneezing Objective: General Observation: Appears uncomfortable but no abnormal pain behavior noted Mental Status: Alert and oriented x3 Pain: 7/10 on the VAS and increases with movement ROM: His cervical spine movements are full and painless movement. He actively flexes his shoulders to 145 degrees without discomfort. Bilateral hip, knee, [place], subtalar midtarsal movements are full and painless movement. Thoracic rotation in the sitting position increases symptoms with 45 degrees to the right and 30 degrees to the left particularly on the left. His lumbar movements were not tested. Strength: Strength is generally rated 5/5 Neuro: Reflexes symmetrical, sensations intact light touch and has full motor co ntrol. Negative straight leg raise bilaterally with hamstring length at 60 degrees. Negative slump test bilaterally Palpation: He is nontender throughout the thoracic paraspinals Bed Mobility/Transfers: Independent with assuming a supine to side-lying to sitting to standing positions but with controlled movements and increased discomfort. Gait: Ambulated throughout the room with a wheeled walker in hopes to unload weightbearing to the spine, but is able to walk without the walker without intensifying his. He is able walk on his heels and toes without weakness but with contact guarding. Balance: Static Sitting: Stable Dynamic Sitting: Stable Static Standing: Stable Dynamic Standing: Requires mild contact guarding Special Tests: Mobility Limitations Standardized Measure [facility] AM-PAC 6 clicks Basic Mobility Inpatient Short Form: Raw Score: 16 standardized Score: 2.95 CMS Score: 54.16% Informed Consent/Education: Patient instructed in purpose of PT consult and plan of care. Assessment: Patient is a 51year old male referred to physical therapy services with the diagnosis of osteomyelitis of the thoracic spine. Patient presents with clinical signs and symptoms consistent with diagnosis, as demonstrated by the following impairment level findings: Pain with movement. Impairments are contributing to the following functional limitations: Pain with all bed mobility activities and limits his walking distance and ADLs Patient is assessed as a Moderate [id number] complexity based on the following: History: See comorbidities and social history Examination: See above for functional limitations and impairments Presentation: Evolving Decision Making: Moderate complexity based on his clinical findings Goals: Goals X1 week Decrease thoracic spine pain to #4/10, and minimize pain with all functional tasks Plan of Care/Treatment Plan: 1-2x/day, 7 days/week x 1 week. Plan of care has been reviewed with the PIPE STEM ALIGNER providing the service under Physical Therapy direction. Initiate Physical Therapy intervention for strengthening, bed mobility, transfers, gait, stairs, balance training, use of assistive device. Patient was fitted with a TENS unit over the mid to lower thoracic spine and right posterior lateral rib cage. He was instructed in adjusting the device etc. DISCHARGE RECOMMENDATIONS: Will see outpatient response to treatment but tentative plan is to return to home without services TREATMENT CODE/TIME: [id number]/30-minute
[2021-10-26] MEDS: amLODIPine 5 MG TAB PO (14:50)
[2021-10-26 15:03] VITALS: BP 119/82; PULSE 72; RESP 20; TEMP 36; O2SAT 93
--- NOTE | 2021-10-26 15:16 | W.PM.PROGNOT ---
Date of Service Date of service: 10/26/21 Time of Service: 15:16 Assessment and Plan Assessment and plan (1) Acute osteomyelitis of thoracic spine: Status: Acute Assessment and plan: admitted for pain management add lidocaine patches, schedule apap, continue home oxycodone as is. discussed with ID and no antibiotics recommended at this time. recommends bone biopsy with IR which we well try to arrange, anticipate possibly done as an outpatient discussed with DR Huynh (2) Polymyalgia rheumatica: Status: Acute Assessment and plan: on prednisone 15 mg daily continue received decadron in ED (3) Chronic pain syndrome: Status: Chronic Assessment and plan: continue home pain management add scheduled apap and lidocaine (4) Constipation: Status: Acute Assessment and plan: reslistor add bowel management. Subjective Subjective Patient reports: no new complaints Exam Const General: cooperative, comfortable, frail appearing and ill appearing (older than stated age) chronically Nutritional Appearance: overweight Orientation: alert, awake and oriented x3 HENMT Head: normal to inspection, normocephalic and atraumatic Mouth: oral mucosae normal Chest Chest: normal inspection of the chest Resp Effort & Inspection: normal respiratory effort Cardio Rate: regular rate Rhythm: regular rhythm GI Inspection: normal to inspection and distended Palpation: soft Auscultation: hypoactive bowel sounds Skin General skin exam: no rashes or lesions noted Extrem General: normal to inspection, full ROM and edema (trace) Laterality: bilateral Objective Last Vital Signs Temp 36 C L 10/26/21 15:03 Pulse 72 10/26/21 15:03 Resp 20 10/26/21 15:03 BP 119/82 10/26/21 15:03 Pulse Ox 93 10/26/21 15:03 Laboratory Results - last 24 hr 10/25/21 10/26/21 17:26 06:22 Plt Count 269 COVID-19 Source Nasal/Nares SARS-CoV-2 (PCR) Negative
[2021-10-26] MEDS: HYDROmorphone 2 MG/ML SYR 1 MG IVP ×2 (16:01→21:49)
--- NOTE | 2021-10-26 16:44 | DSE_ITS ---
Date of service: 10/26/21 Time of Service: 16:44 DS: Diagnosis Discharge Diagnosis (1) Acute osteomyelitis of thoracic spine: Status: Acute (2) Polymyalgia rheumatica: Status: Acute (3) Chronic pain syndrome: Status: Chronic (4) Constipation: Status: Acute Discharge Plan Disposition Patient Disposition: HOME Condition: Serious Discharge Details Reason For Visit: Osteomyelitis Admit Date/Time: 10/25/21 17:17 Admit Provider: Pankaj Huynh Attending Provider: Pankaj Huynh [facility] Hospital Course: Long history of back pain.?He denies any recent falls or injuries.?He was seen by primary care earlier this month and had his prescription for oxycodone and oxycodone ER refilled.?I did review with the pharmacist and he does take oxycodone as we have documented. Arrival here, he reports his pain is different and that the oxycodone is not helping.? He denies any numbness, weakness in the legs.? He denies bladder or bowel incontinence. He did get significant relief in the ED. MRI completed. It was sent to [facility] and we discussed treatment with infectious disease; they said he does not need antibiotics, he needs a bone biopsy. We called the [facility] physician connection line to arrange out patient IR bone biopsy of T10 area. His blood pressure has been increased here and when looking back at clinic visits, also increased. Discussion with Dr Huynh, Am lodipine 5 mg by mouth daily added to current medications. Waqar would like to go home once his pain is controlled. He will follow up with his PCP. Reviewed with Dr Huynh Home Meds and New Rx's Prescriptions: New polyethylene glycol 3350 17 gram Powder In Packet 17 g PO BID Qty: 0 0RF lidocaine 5 % Adhesive Patch,Medicated 2 patch topical Q24H Qty: 15 0RF docusate sodium [Colace] 100 mg Capsule 100 mg PO BID Qty: 0 0RF amlodipine 5 mg Tablet 5 mg PO DAILY Qty: 30 0RF Continued B-complex with vitamin C Tablet 1 tab PO DAILY prednisone 10 mg tablet 10 mg PO DAILY MDD 15 56 Days Qty: 56 0RF Rx Instructions: Take with 5 mg tablets for one month, then 2.5 mg tablets the next month prednisone 5 mg tablet 5 mg PO DAILY MDD 15 Qty: 28 0RF prednisone 2.5 mg tablet 2.5 mg PO DAILY MDD 12.5 Qty: 28 0RF Rx Instructions: Take with 10 mg tabs after finishing one month of 5 mg tabs oxycodone 20 mg tablet 20 mg PO BID MDD 220 PRN (Reason: pain) Qty: 56 0RF oxycodone 30 mg tablet,oral only,ext.rel.12 hr 30 mg PO BID MDD 220 Qty: 56 0RF oxycodone 30 mg tablet 30 mg PO Q6H MDD 220 PRN (Reason: pain) Qty: 112 0RF famotidine 20 mg tablet 20 mg PO DAILY Qty: 90 3RF methotrexate sodium 10 mg tablet 10 mg PO QWEEK Qty: 30 0RF folic acid 1 mg tablet 1 mg PO DAILY Qty: 90 3RF lisinopril 20 mg tablet 30 mg PO DAILY Qty: 90 3RF Caltrate 600-D Plus Minerals 600 mg calcium- 800 unit-50 mg tablet 1 tab PO DAILY Qty: 90 3RF Rx Instructions: give with meal/snack naloxone [Narcan] 4 MG spray,non-aerosol 4 mg NS PRN PRNQty: 1 Rx Instructions: One spray into one nostril and call 911 for opioid overdose, repeat in 5 min acetaminophen [Tylenol Extra Strength] 500 MG tablet 1,000 mg PO DAILY propranolol 20 mg tablet 20 mg PO BID Qty: 180 3RF oxybutynin chloride 5 mg tablet 5 mg PO BID-TID MDD 15 mg PRN (Reason: bladder spasms) Qty: 180 3RF testosterone [AndroGel] 20.25 mg/1.25 gram (1.62 %) gel in metered-dose pump 3 pump TP DAILY Qty: 75 5RF Rx Instructions: apply 2 pumps over max area of ONE upper arm and shoulder, 1 pump over OTHER upper arm and shoulder tamsulosin 0.4 mg capsule 0.8 mg PO DAILY Qty: 180 3RF Rx Instructions: for lower urinary symptoms orphenadrine citrate 100 mg tablet extended release 100 mg PO BID Qty: 14 0RF Discharge Instructions Instructions: Pain Management (DC), Chronic Pain (GEN), Chronic Back Pain (DC), Opioid Safety (DC) Additional Instructions: [facility] will call with appointment for bone biopsy. Please keep this appointment. Follow up with PCP for all medication needs. Stand Alone Forms: Nursing Discharge Form Referrals: [facility] [Outside] (Interventional Radiology - order faxed - they will call with appointment.) Gabino Florian DO [Primary Care Provider] - (Call Monday morning for an appointment in the next 2 weeks ) Activity:: Activity as Tolerated Equipment/Supplies:: No Equipment Needed Diet:: As Tolerated Discharge Orders Discharge Orders: Discharge Order (Routine); Ordered 10/26/21 Ordered By: Alvina Urrutia DS: Summary Summary Time spent discussing smoking cessation with patient: 3 to 10 minutes Time Spent with Patient providing and/or coordinating discharge services: Less than 30 minutes Status at Discharge Functional status at discharge: independent ambulation Overall status at discharge: patient is progressing back to baseline Mental Status: mental status grossly normal Speech and Movement: speech and movement normal and slowed movement Mood: congruent mood Affect: normal affect Exam Const General: cooperative, comfortable, frail appearing and ill appearing (older than stated age) chronically Nutritional Appearance: overweight Orientation: alert, awake and oriented x3 HENMT Head: normal to inspection, normocephalic and atraumatic Mouth: oral mucosae normal Chest Chest: normal inspection of the chest Resp Effort & Inspection: normal respiratory effort Cardio Rate: regular rate Rhythm: regular rhythm GI Inspection: normal to inspection and distended Palpation: soft Auscultation: hypoactive bowel sounds Skin General skin exam: no rashes or lesions noted Extrem General: normal to inspection, full ROM and edema (trace) Laterality: bilateral Psych Mental Status: mental status grossly normal Speech and Movement: speech and movement normal and slowed movement Mood: congruent mood Affect: normal affect DS: Data Vitals/I&O Vitals and I&O: Vital Signs Temperature 36 C L 10/26/21 15:03 Temperature Source Tympanic 10/26/21 15:03 Pulse 72 10/26/21 15:03 Pulse Rhythm Regular 10/26/21 16:26 Respiratory Rate 20 10/26/21 15:03 Respiratory Effort 10/26/21 16:26 Respiratory Depth Normal 10/26/21 16:26 Respiratory Pattern Normal 10/26/21 16:26 Blood Pressure 119/82 10/26/21 15:03 Blood Pressure Mean 105 10/25/21 16:00 Blood Pressure Position Sitting 10/25/21 09:10 Pulse Oximetry 93 10/26/21 15:03 Oxygen Delivery Method Room Air 10/26/21 15:03 Oxygen Flow Rate 0 10/26/21 15:03 Pain Level 5 10/26/21 15:03 Comment 10/25/21 09:10 Intake & Output 10/25/21 10/26/21 10/26/21 23:59 11:59 23:59 Intake Total 400 / 400 50 / 290 240 / 290 Balance 400 / 400 50 / 290 240 / 290 Weight 77 kg Intake: IV 400 / 400 Oral 50 / 290 240 / 290 Other: Urine Appearance Clear Comment Pt OOB to bathroom Data Completed and Pending Labs on day of discharge: Labs from last 24 hours 10/26/21 10/25/21 06:22 17:26 Plt Count 269 COVID-19 Source Nasal/Nares SARS-CoV-2 (PCR) Negative 10/25/21 15:29 Blood Blood Culture - Pending 10/25/21 15:29 Blood Blood Culture - Pending Preliminary micro results at discharge 10/25/21 15:29 Blood Culture - Pending Blood 10/25/21 15:29 Blood Culture - Pending Blood PFSH All Active Problems Constipation (Acute) Polymyalgia rheumatica (Acute) Chronic pain syndrome (Chronic 05/15/89) Back pain (Acute) Acute osteomyelitis of thoracic spine (Acute) Rib pain (Acute) Compression fracture of T12 vertebra (Acute) Unintentional weight loss (Acute) Compression fracture of lumbar vertebra (Acute) Tobacco dependence syndrome (Chronic 05/15/84) 1 PPS; unable to stop, multiple tries; 2020- reduced on buproprion Long-term corticosteroid use (Chronic) Finished course December 2019 Benign familial tremor (Acute) Acute cholecystitis (Acute 09/22/12) 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) Lower urinary tract symptoms (Acute 08/01/14) Nocturia (Acute 05/12/14) Status post epidural steroid injection (Acute 12/18/14) Urgency of urination (Chronic 11/03/15) Primary fibromyalgia syndrome (Chronic 01/14/12) DR BAYRON DEVI 01/2012; H/O DR BALDERAS PRIOR TO THAT Palpitations (Chronic 11/28/16) h/o 08/2014, Holter: freq PAC's with no SVT; Holter 11/2016: okay; ZIO patch 02/2017 pending Other chronic pain (Chronic 05/15/05) STARTED WITH FOOT PAIN, COMPLEX REGIONAL PAIN SYN FOLLOWING CHAIN SAW INJURY L FOOT ; LATER OTHER BACK, NECK, ARMS; opioids <2006; MRI 11/2014; pain clinic -12/2014 (last summary note 04/07/16; Lumbar epidural 09/01/16 Midline low back pain with sciatica (Chronic 06/23/11) CT neg 02/2014; MRI 11/2014: L L4-5 disc bulge, sciatica L; Dr Arambula, epidural 12/19/14 not effective; sometimes radiate either leg, Dr Marlow neuro eval Hypogonadism in male (Chronic 04/12/16) elevated gonadotrophin (not caused by opioid rx) Pain, joint, hand, right (Chronic) swelling MCP and CMC R hand, x-ray neg, Dr Balderas, related to overuse. (2008- 2009); Dr Anastasia Devi 2011 Chronic fatigue (Chronic 04/05/16) incr frequency over 6 months Alcohol use disorder, mild, in sustained remission, abuse (Chronic 02/12/99) ABSTINENT SINCE 02/1999; HAD TO BE SOBER X 3YR TO GET LICENSE 2002 Adjustment disorder with mixed anxiety and depressed mood (Chronic 03/17/16) Lumbar radicular pain (Chronic) Tobacco dependence syndrome (Chronic) History of surgery (Chronic) Appendectomy. Multiple surgeries for repair of left foot after chainsaw injury. Radha layton 09/22/[address] Aubrey Nguyen. Gastroesophageal reflux disease (Chronic) Fibromyalgia (Chronic) Medical History Essential hypertension Gastroesophageal reflux disease Lower urinary tract symptoms (LUTS) (08/01/14) responsive to tamsulosin 0.8mg Other mixed anxiety disorders (06/08/15) Surgical History S/P appendectomy S/P cholecystectomy S/P foot surgery, left Family History Mother No problems noted. Father Personal history of malignant neoplasm prostate CA Brother , heart at age 57. 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
--- NOTE | 2021-10-26 18:20 | PDOC.CMDIS ---
- If Service Date Differs Date of service: 10/26/21 Time of Service: 18:20 LACE Index Scoring Tool - Questions: Length of Stay (in days): 1 Acuity (Admit via E.D.?): Yes Comorbidities: Connective Tissue Disease E.D. Visits: 2 - Answers: Total Score: 9 Risk of Readmission: Low Risk Care Management Discharge Reason for Hospitalization: osteomyelitis of thoracic spine Discharge Plan: Waqar may need exterminator termite IVAB if it is determined that he does, in fact, have osteomyelitis in his thoracic spine. At this time ID at [facility] is recommending that antibiotics be held until a bone biopsy can be done and/or blood culteure become positive. Waqar will be discharged home with outpatient follow up at [facility] IR, as well as with his PCP. He will transport via private vehicle with a friend or family member. Patient/Family Education Needs: Review of discharge instructions, limitations, follow up care, activity, medications, discuss Ask Me Three
--- NOTE | 2021-10-26 18:50 | DSE_ITS ---
DS: Diagnosis Discharge Diagnosis (1) Acute osteomyelitis of thoracic spine: Status: Deleted (2) Polymyalgia rheumatica: Status: Acute (3) Chronic pain syndrome: Status: Chronic (4) Constipation: Status: Acute Discharge Plan Disposition Patient Disposition: HOME Condition: Serious Discharge Details Reason For Visit: Osteomyelitis Admit Date/Time: 10/25/21 17:17 Admit Provider: Pankaj Huynh Attending Provider: Pankaj Huynh Primary Care Provider: Gabino Florian [facility] Course Hospital Course: Long history of back pain.?He denies any recent falls or injuries.?He was seen by primary care earlier this month and had his prescription for oxycodone and oxycodone ER refilled.?I did review with the pharmacist and he does take oxycodone as we have documented. Arrival here, he reports his pain is different and that the oxycodone is not helping.? He denies any numbness, weakness in the legs.? He denies bladder or bowel incontinence. He did get significant relief in the ED. MRI completed. It was sent to [facility] and we discussed treatment with infectious disease; they said he does not need antibiotics, he needs a bone biopsy. We called the [facility] physician connection line to arrange out patient IR bone biopsy of T10 area. His blood pressure has been increased here and when looking back at clinic visits, also increased. Discussion with Dr Huynh, Amlodipine 5 mg by mouth daily added to current medications. Waqar would like to go home once his pain is controlled. He will follow up with his PCP. Reviewed with Dr Huynh Home Meds and New Rx's Prescriptions: New polyethylene glycol 3350 17 gram Powder In Packet 17 g PO BID Qty: 0 0RF lidocaine 5 % Adhesive Patch,Medicated 2 patch topical Q24H Qty: 15 0RF docusate sodium [Colace] 100 mg Capsule 100 mg PO BID Qty: 0 0RF amlodipine 5 mg Tablet 5 mg PO DAILY Qty: 30 0RF Continued B-complex with vitamin C Tablet 1 tab PO DAILY prednisone 10 mg tablet 10 mg PO DAILY MDD 15 56 Days Qty: 56 0RF Rx Instructions: Take with 5 mg tablets for one month, then 2.5 mg tablets the next month prednisone 5 mg tablet 5 mg PO DAILY MDD 15 Qty: 28 0RF prednisone 2.5 mg tablet 2.5 mg PO DAILY MDD 12.5 Qty: 28 0RF Rx Instructions: Take with 10 mg tabs after finishing one month of 5 mg tabs oxycodone 20 mg tablet 20 mg PO BID MDD 220 PRN (Reason: pain) Qty: 56 0RF oxycodone 30 mg tablet,oral only,ext.rel.12 hr 30 mg PO BID MDD 220 Qty: 56 0RF oxycodone 30 mg tablet 30 mg PO Q6H MDD 220 PRN (Reason: pain) Qty: 112 0RF famotidine 20 mg tablet 20 mg PO DAILY Qty: 90 3RF methotrexate sodium 10 mg tablet 10 mg PO QWEEK Qty: 30 0RF folic acid 1 mg tablet 1 mg PO DAILY Qty: 90 3RF lisinopril 20 mg tablet 30 mg PO DAILY Qty: 90 3RF Caltrate 600-D Plus Minerals 600 mg calcium- 800 unit-50 mg tablet 1 tab PO DAILY Qty: 90 3RF Rx Instructions: give with meal/snack naloxone [Narcan] 4 MG spray,non-aerosol 4 mg NS PRN PRNQty: 1 Rx Instructions: One spray into one nostril and call 911 for opioid overdose, repeat in 5 min acetaminophen [Tylenol Extra Strength] 500 MG tablet 1,000 mg PO DAILY propranolol 20 mg tablet 20 mg PO BID Qty: 180 3RF oxybutynin chloride 5 mg tablet 5 mg PO BID-TID MDD 15 mg PRN (Reason: bladder spasms) Qty: 180 3RF testosterone [AndroGel] 20.25 mg/1.25 gram (1.62 %) gel in metered-dose pump 3 pump TP DAILY Qty: 75 5RF Rx Instructions: apply 2 pumps over max area of ONE upper arm and shoulder, 1 pump over OTHER upper arm and shoulder tamsulosin 0.4 mg capsule 0.8 mg PO DAILY Qty: 180 3RF Rx Instructions: for lower urinary symptoms orphenadrine citrate 100 mg tablet extended release 100 mg PO BID Qty: 14 0RF Discharge Instructions Instructions: Pain Management (DC), Chronic Pain (GEN), Chronic Back Pain (DC), Opioid Safety (DC) Additional Instructions: [facility] will call with appointment for bone biopsy. Please keep this appointment. Follow up with PCP for all medication needs. Stand Alone Forms: Nursing Discharge Form Referrals: [facility] [Outside] (Interventional Radiology - order faxed - they will call with appointment.) Gabino Florian DO [Primary Care Provider] - 11/04/21 10:45 am () Activity:: Activity as Tolerated Equipment/Supplies:: No Equipment Needed Diet:: As Tolerated Discharge Orders Discharge Orders: Discharge Order (Routine); Ordered 10/27/21 Ordered By: Alvina Urrutia Discharge Data Discharge Date/Time-TO BE ENTERED AT DEPARTURE: 10/27/21 10:07 DS: Summary Time Spent with Patient providing and/or coordinating discharge services: Less than 30 minutes Status at Discharge Functional status at discharge: independent ambulation Overall status at discharge: patient is progressing back to baseline Mental Status: mental status grossly normal Speech and Movement: speech and movement normal Mood: congruent mood Affect: normal affect Exam Psych Mental Status: mental status grossly normal Speech and Movement: speech and movement normal Mood: congruent mood Affect: normal affect DS: Data Vitals/I&O Vitals and I&O: Vital Signs Temperature 36 C L 10/26/21 15:03 Temperature Source Tympanic 10/26/21 15:03 Pulse 72 10/26/21 15:03 Pulse Rhythm Regular 10/26/21 16:26 Respiratory Rate 20 10/26/21 15:03 Respiratory Effort 10/26/21 16:26 Respiratory Depth Normal 10/26/21 16:26 Respiratory Pattern Normal 10/26/21 16:26 Blood Pressure 119/82 10/26/21 15:03 Blood Pressure Mean 105 10/25/21 16:00 Blood Pressure Position Sitting 10/25/21 09:10 Pulse Oximetry 93 10/26/21 15:03 Oxygen Delivery Method Room Air 10/26/21 15:03 Oxygen Flow Rate 0 10/26/21 15:03 Pain Level 8 10/26/21 17:25 Comment 10/25/21 09:10 Intake & Output 10/25/21 10/26/21 10/26/21 23:59 11:59 23:59 Intake Total 400 / 400 50 / 290 240 / 290 Balance 400 / 400 50 / 290 240 / 290 Weight 77 kg Intake: IV 400 / 400 Oral 50 / 290 240 / 290 Other: Urine Appearance Clear Comment Pt OOB to bathroom Data Completed and Pending Labs on day of discharge: Labs from last 24 hours 06/14/22 06:22 Plt Count 269 Preliminary micro results at discharge 10/25/21 15:29 Blood Culture - Preliminary Blood NO GROWTH 24 HOURS 10/25/21 15:29 Blood Culture - Preliminary Blood NO GROWTH 24 HOURS PFSH All Active Problems (Updated 10/28/21 @ 00:04 by ROSAURA OCONNELL) Constipation (Acute) Polymyalgia rheumatica (Acute) Chronic pain syndrome (Chronic 05/15/89) Back pain (Acute) Rib pain (Acute) Compression fracture of T12 vertebra (Acute) Unintentional weight loss (Acute) Tobacco dependence syndrome (Chronic 05/15/84) 1 PPS; unable to stop, multiple tries; 2019- reduced on buproprion Long-term corticosteroid use (Chronic) Finished course December 2019 Benign familial tremor (Acute) Acute cholecystitis (Acute 09/22/12) 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) Lower urinary tract symptoms (Acute 08/01/14) Nocturia (Acute 05/12/14) Status post epidural steroid injection (Acute 12/18/14) Urgency of urination (Chronic 11/03/15) Primary fibromyalgia syndrome (Chronic 01/14/12) DR BAYRON DEVI 01/2012; H/O DR BALDERAS PRIOR TO THAT Palpitations (Chronic 11/28/16) h/o 08/2014, Holter: freq PAC's with no SVT; Holter 11/2016: okay; ZIO patch 02/2017 pending Other chronic pain (Chronic 05/15/05) STARTED WITH FOOT PAIN, COMPLEX REGIONAL PAIN SYN FOLLOWING CHAIN SAW INJURY L FOOT ; LATER OTHER BACK, NECK, ARMS; opioids <2005; MRI 11/2014; pain clinic -12/2014 (last summary note 04/07/16; Lumbar epidural 09/01/16 Midline low back pain with sciatica (Chronic 06/23/11) CT neg 02/2014; MRI 11/2014: L L4-5 disc bulge, sciatica L; Dr Arambula, epidural 12/19/14 not effective; sometimes radiate either leg, Dr Marlow neuro eval Hypogonadism in male (Chronic 04/12/16) elevated gonadotrophin (not caused by opioid rx) Pain, joint, hand, right (Chronic) swelling MCP and CMC R hand, x-ray neg, Dr Balderas, related to overuse. (2008- 2009); Dr Anastasia Devi 2011 Chronic fatigue (Chronic 04/05/16) incr frequency over 6 months Alcohol use disorder, mild, in sustained remission, abuse (Chronic 02/12/99) ABSTINENT SINCE 02/1999; HAD TO BE SOBER X 3YR TO GET LICENSE 2002 Adjustment disorder with mixed anxiety and depressed mood (Chronic 03/17/16) Lumbar radicular pain (Chronic) Tobacco dependence syndrome (Chronic) History of surgery (Chronic) Appendectomy. Multiple surgeries for repair of left foot after chainsaw injury. Radha kinjal 09/22/[address] Aubrey Nguyen. Gastroesophageal reflux disease (Chronic) Fibromyalgia (Chronic) Medical History Essential hypertension Gastroesophageal reflux disease Lower urinary tract symptoms (LUTS) (08/01/14) responsive to tamsulosin 0.8mg Other mixed anxiety disorders (06/08/15) Surgical History S/P appendectomy S/P cholecystectomy S/P foot surgery, left Family History Mother No problems noted. Father Personal history of malignant neoplasm prostate CA Brother , heart at age 57. 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
[2021-10-26 20:47] VITALS: BP 123/76; PULSE 103; RESP 20; TEMP 36.4; O2SAT 93
[2021-10-26] MEDS: Lidocaine 5% Patch 2 PATCH TP (20:52)
[2021-10-26] MEDS: Pantoprazole 40 MG VIAL IVP (21:49)
[2021-10-27 01:20] VITALS: O2SAT 93
[2021-10-27] MEDS: Ketorolac 15 MG/ML VIAL IVP ×2 (02:01→09:54)
[2021-10-27 04:30] VITALS: BP 155/69; PULSE 79; RESP 19; TEMP 36.1; O2SAT 96
[2021-10-27 06:14] VITALS: O2SAT 95
[2021-10-27 07:00] VITALS: BP 134/89; PULSE 77; RESP 17; TEMP 36.3; O2SAT 94
[2021-10-27] MEDS: Propranolol 20 MG TAB PO (08:49)
[2021-10-27] MEDS: Docusate Sodium 100 MG CAP PO (08:49)
[2021-10-27] MEDS: Vitamins B Comp w/C TAB 1 TAB PO (08:50)
[2021-10-27] MEDS: oxyCODONE-CR 10 MG TABCR 30 MG PO (08:50)
[2021-10-27] MEDS: amLODIPine 5 MG TAB PO (08:50)
[2021-10-27] MEDS: Folic Acid 1 MG TAB PO (08:50)
[2021-10-27] MEDS: Calcium 600mg/Vit D 200U TAB 1 TAB PO (08:50)
[2021-10-27] MEDS: Acetaminophen 500 MG TAB 1000 MG PO (08:50)
[2021-10-27] MEDS: Tamsulosin 0.4 MG CAPCR 0.8 MG PO (08:51)
[2021-10-27] MEDS: Cyclobenzaprine 10 MG TAB PO (08:51)
[2021-10-27] MEDS: Lisinopril 20 MG TAB 30 MG PO (08:51)
[2021-10-27] MEDS: Famotidine 20 MG TAB PO (08:51)
[2021-10-27] MEDS: Enoxaparin 40 MG/0.4 ML SYR SC (08:53)
[2021-10-27] MEDS: Nicotine 21 MG/24 HR PATCH TD (08:53)
[2021-10-27] MEDS: Patch Removal 2 EACH TP (08:54)
[2021-10-27] MEDS: Polyethylene Glycol 3350 17 GM PACKET PO (08:55)
[2021-10-27] MEDS: predniSONE 5 MG TAB 15 MG PO (09:19)
[2021-10-27] MEDS: HYDROmorphone 2 MG/ML SYR 1 MG IVP (09:54)
[2021-10-27] MEDS: Normal Saline Flush 10 ML SYR IVP (09:55)
--- NOTE | 2021-10-27 11:52 | PDOC.CMPRO ---
- If Service Date Differs Date of service: 10/27/21 Time of Service: 11:52 Care Management Progress Note Waqar was not feeling well last night so he did not discharge until this morning.
--- NOTE | 2021-10-28 09:02 | INDS_ITS ---
PT Notes Visit Reasons: Osteomyelitis Treatment Dates: 10/26/2021 Referring Doctor: Alia Umanzor PT Orders: PT CONSULT: Acute thoracic spine pain This document serves as a summary of care. No PT services were provided on this date. Patient Profile/Admitting Diagnosis: 51-year-old male?with recent diagnosis of a thoracic osteomyelitis admitted for pain control and treatment. Seen for PT evaluation only, after which pain was sufficiently managed to allow for safe return home. Subjective:?None obtained Objective:? ROM: His cervical spine movements are full and painless movement.? He actively flexes his shoulders to 145 degrees without discomfort.? Bilateral hip, knee, talocrural, subtalar midtarsal movements are full and painless movement.? Thoracic rotation in the sitting position increases symptoms with 45 degrees to the right and 30 degrees to the left particularly on the left.? His lumbar movements were not tested. Strength: Strength is generally rated 5/5 Neuro: Reflexes symmetrical, sensations intact light touch and has full motor control.? Negative straight leg raise bilaterally with hamstring length at 60 degrees.? Negative slump test bilaterally Palpation: He is nontender throughout the thoracic paraspinals Bed Mobility/Transfers:?Independent with assuming a supine to side-lying to sitting to standing positions but with controlled movements and increased discomfort. Gait:?Ambulated throughout the room with a wheeled walker in hopes to unload weightbearing to the spine, but is able to walk without the walker without intensifying his.? He is able walk on his heels and toes without weakness but with contact guarding. Balance:? Static Sitting: Stable Dynamic Sitting: Stable Static Standing: Stable Dynamic Standing: Requires mild contact guarding Special Tests: Mobility Limitations Standardized Measure [facility] 6 clicks Basic Mobility Inpatient Short Form: Raw Score: 16? standardized Score: 2.95? CMS Score: 54.16% ? ? ? Informed Consent/Education:? Patient instructed in purpose of PT consult and plan of care. Assessment:??Patient is a 51year old male referred to physical therapy services with the diagnosis of osteomyelitis of the thoracic spine.? Patient presented with independent mobility, limited primarily by pain. After PT session, his pain was managed to allow for return back home with further outpatient management. Goals: Goals X1 week Decrease thoracic spine pain to #4/10, and minimize pain with all functional tasks (unable to assess VAS, but pain suffienctly controlled to allow for d/c home) Plan of Care/Treatment Plan: D/C from PT in acute care setting. DISCHARGE RECOMMENDATIONS:D/C home.
--- NOTE | 2021-10-28 10:02 | W.PM.PROGNOT ---
Date of Service Date of service: 10/26/21 Time of Service: 12:30 Assessment and Plan Assessment and plan (1) Acute osteomyelitis of thoracic spine: Status: Deleted Assessment and plan: admitted for pain management add lidocaine patches, schedule apap, continue home oxycodone as is. discussed with ID and no antibiotics recommended at this time. recommends bone biopsy with IR which we well try to arrange, anticipate possibly done as an outpatient - sent order to [facility] to schedule Plan to send him home later today. discussed with Dr Huynh (2) Polymyalgia rheumatica: Status: Acute Assessment and plan: on prednisone 15 mg daily continue (3) Chronic pain syndrome: Status: Chronic Assessment and plan: continue home pain management add scheduled apap and lidocaine (4) Constipation: Status: Acute Assessment and plan: reslistor add bowel management. Subjective Subjective Interval history since last seen: Continues to have pain, eating well, no nausea or vomiting. Exam Const General: cooperative, comfortable, frail appearing and ill appearing (older than stated age) chronically Nutritional Appearance: overweight Orientation: alert, awake and oriented x3 HENMT Head: normal to inspection, normocephalic and atraumatic Mouth: oral mucosae normal Chest Chest: normal inspection of the chest Resp Effort & Inspection: normal respiratory effort Cardio Rate: regular rate Rhythm: regular rhythm GI Inspection: normal to inspection and distended Palpation: soft Auscultation: hypoactive bowel sounds Skin General skin exam: no rashes or lesions noted Extrem General: normal to inspection, full ROM and edema (trace) Laterality: bilateral Objective Last Vital Signs Temp 36.3 C L 10/27/21 07:00 Pulse 77 10/27/21 07:00 Resp 17 10/27/21 07:00 BP 134/89 10/27/21 07:00 Pulse Ox 94 10/27/21 07:00
== END 2021-10-27 10:07 | disposition home or self-care (01) | DRG 540 ==
LOC: ER 17:47 → MS 10-26 08:14
PROVIDERS: General Practice; Physician Assistant; Admitting Provider Family Medicine; Emergency Provider Registered Nurse Emergency; PCP Family Medicine; Visit Provider Family Medicine
DX: M46.24 Osteomyelitis of vertebra, thoracic region (principal); M48.54XA Collapsed vertebra, not elsewhere classified, thoracic region, initial encounter for fracture; M48.56XA Collapsed vertebra, not elsewhere classified, lumbar region, initial encounter for fracture; F10.11 Alcohol abuse, in remission; M35.3 Polymyalgia rheumatica; Z79.52 Long term (current) use of systemic steroids; K59.00 Constipation, unspecified; R63.4 Abnormal weight loss; F17.210 Nicotine dependence, cigarettes, uncomplicated; G25.0 Essential tremor; F40.02 Agoraphobia without panic disorder; R35.1 Nocturia; R39.15 Urgency of urination; I49.1 Atrial premature depolarization; R53.82 Chronic fatigue, unspecified; F43.23 Adjustment disorder with mixed anxiety and depressed mood; K21.9 Gastro-esophageal reflux disease without esophagitis; I10 Essential (primary) hypertension; G89.4 Chronic pain syndrome; M85.88 Other specified disorders of bone density and structure, other site; M54.16 Radiculopathy, lumbar region; M54.42 Lumbago with sciatica, left side
CPT/HCPCS: 36410; 36415; 72158; 80053; 83690; 87040; 87635; 96365; 96366; 96375; 96376; 97112; 97162; 99285; J1650; 72157; 81003; 81015; 85025; 85049; 86140; 99223; 99238; J1100; J1170; J1885; J3490; J7512

== ENCOUNTER → 2022-01-03 02:39 | Outpatient (CLI) | payer MEDICAID, SELFPAY ==
--- NOTE | 2022-01-03 07:30 | DI.CT_ITS ---
Exam(s) CT CHEST WO EXAM: CT CHEST WO CLINICAL HISTORY: 3 month follow up for pulmonary nodules,r91.8. TECHNIQUE: Imaging protocol: Axial computed tomography images were obtained and coronal and sagittal reformatted images were created and reviewed. COMPARISON: CT CT CHEST LUNG CANCER SCREEN from 10/12/[address] CHEST/ABD/PEL WO from 10/23/2021 MR MR THORACIC SPINE WO/W from 10/25/2021 MR MR LUMBAR SPINE WO/W from 10/25/2021 FINDINGS: Tracheobronchial tree: Patent where visualized. Pulmonary parenchyma: No consolidation or dominant measurable mass. Emphysematous changes are present in the lungs. The lateral basilar infiltrate seen in the right lower lobe has resolved. The pleura l thickening in the lateral aspect of the right upper lobe is stable. There are no suspicious pulmon huang nodules present. Mediastinum and Kerry: No dominant adenopathy or fluid collection. The esophagus is unremarkable. Thyroid gland: Unremarkable. Pleura: No effusion or pneumothorax. Heart: The heart is not dilated. No coronary artery calcifications are seen. No pericardial effusion. Aorta: Thoracic aorta non-dilated. Upper abdomen: Status post cholecystectomy. Lymph nodes: Within normal limits. Soft tissues: Unremarkable. Bones:There again seen compression fracture deformities of T12 and L1 which are stable. There has be en further compression of the T10 vertebral body which has lost approximately half of the height. Th ere has been an interval compression fracture of the T 11 vertebral body. There is minimal loss of h eight of the vertebral body noted. No retropulsion is seen no significant central spinal canal steno sis is present. IMPRESSION: 1. Interval resolution of the right lower lobe infiltrate. 2. No new pulmonary nodules. 3. Compression fracture deformities of T10, T12 and L1. The L1 and T12 compression fractures appear stable. There has been a further compression of the T10 vertebral body which has lost approximately half of its height. 4. Interval T11 compression fracture with minimal loss of height. This was not present on the MRI of the thoracic spine from 10/25/2021. RADIATION DOSE DELIVERED: 416.22mGy.cm Total DLP 416.22mGy.cm Total DLP DATA REPOSITORY: All CT scans at this facility are submitted to the National Radiology Data Registry (NRDR) Dose Index Registry (DIR) with the [employer] ([employer]). RADIATION OPTIMIZATION: All CT scans at this facility use at least one of these dose optimization te chniques: automated exposure control; mA and/or kV adjustment per patient size (includes targeted exa ms where dose is matched to clinical indication); or iterative reconstruction.
== END ==
PROVIDERS: PCP Family Medicine; Visit Provider Family Medicine
DX: R91.8 Other nonspecific abnormal finding of lung field (principal); M48.54XA Collapsed vertebra, not elsewhere classified, thoracic region, initial encounter for fracture
CPT/HCPCS: 71250

== ENCOUNTER 2022-01-11 02:49 | Outpatient (RCR) | payer MEDICAID, SELFPAY ==
[2022-01-11] MEDS: ZOLEDRONIC ACID/MANNITOL/WATER 5 MG/100 ML BTL 300 MG IVPB (13:15)
[2022-01-11] MEDS: Normal Saline Flush 10 ML SYR IVP (13:15)
== END 2022-01-12 23:59 | disposition home or self-care (01) ==
LOC: INF 02:49
PROVIDERS: PCP Family Medicine; Visit Provider Family Medicine
DX: M80.08XA Age-related osteoporosis with current pathological fracture, vertebra(e), initial encounter for fracture (principal)
CPT/HCPCS: 96365; J3489

== ENCOUNTER → 2022-03-10 02:52 | Outpatient (CLI) | payer MEDICAID, SELFPAY ==
--- NOTE | 2022-03-10 07:00 | DI.US_ITS ---
Exam(s) US ABDOMEN EXAM: US ABDOMEN CLINICAL HISTORY: RUQ pain,r10.9 TECHNIQUE: Ultrasound abdomen performed using standard protocol. COMPARISON: CT CT CHEST/ABD/PEL WO from 10/23/2021 FINDINGS: ABDOMINAL AORTA AND IVC: Visualized portions normal caliber. PANCREAS: Normal where visualized. LIVER: Normal. Hepatopedal flow in the Portal Vein. The liver measures 15.8 cm long. GALLBLADDER:Status post cholecystectomy. BILIARY SYSTEM: Common bile duct measures < 7 mm. No intrahepatic biliary ductal dilation. KIDNEYS: Kidneys are symmetric in size. No evidence of renal calculi. No evidence of hydronephrosis. No renal mass or cyst identified. SPLEEN: Not enlarged. ASCITES: None seen. Evaluation of the umbilicus was performed. There appears to be a small fat containing umbilical darrian ia. IMPRESSION: 1. Status post cholecystectomy. No biliary ductal dilatation. 2. Findings suspicious for very small fat containing umbilical hernia. DATA REPOSITORY:
== END ==
PROVIDERS: PCP Family Medicine; Visit Provider Family Medicine
DX: R10.9 Unspecified abdominal pain (principal)
CPT/HCPCS: 76700

== ENCOUNTER 2022-12-07 02:11 | Outpatient (CLI) | payer MEDICARE, MEDICAID, SELFPAY ==
--- NOTE | 2022-12-07 06:45 | DI.RAD_ITS ---
Exam(s) XR CERVICAL SPINE COMP 4-5V EXAM: XR CERVICAL SPINE COMP 4-5V CLINICAL HISTORY: Neck pain after a fall,W19.XXXA. TECHNIQUE: 2D digital imaging was performed. Six images were obtained. AP, odontoid, lateral and clif ateral oblique images were obtained. COMPARISON: No exams were available for comparison FINDINGS: The odontoid is intact. The lateral masses are well aligned. There is normal alignment of the cervi ariel spine. The vertebral bodies, disc spaces and posterior elements are well maintained. No acute f racture or subluxation is present. No significant neural foraminal stenosis is present. The cervical thoracic junction is well maintained. The prevertebral soft tissues are unremarkable. Lung apices a re clear. IMPRESSION: Unremarkable radiographs of the cervical spine. DATA REPOSITORY: RADIATION DOSE DELIVERED:
== END 2022-12-07 02:31 ==
LOC: DI 02:12
PROVIDERS: PCP Family Medicine; Visit Provider Family Medicine
DX: W19.XXXA Unspecified fall, initial encounter (principal); M54.2 Cervicalgia
CPT/HCPCS: 72050

== ENCOUNTER 2023-01-12 01:22 | Outpatient (RCR) | payer MEDICARE, MEDICAID, SELFPAY ==
[2023-01-12] MEDS: ZOLEDRONIC ACID/MANNITOL/WATER 5 MG/100 ML BTL 300 MG IVPB (13:28)
[2023-01-12] MEDS: Normal Saline Flush 10 ML SYR IVP (13:31)
== END 2023-01-12 23:59 | disposition home or self-care (01) ==
LOC: INF 01:22
PROVIDERS: PCP Family Medicine; Visit Provider Family Medicine
DX: M80.08XA Age-related osteoporosis with current pathological fracture, vertebra(e), initial encounter for fracture (principal)
CPT/HCPCS: 96365; J3489

== ENCOUNTER 2023-05-05 14:45 | Emergency (ER) | payer MEDICARE, MEDICAID, SELFPAY ==
[2023-05-05] VITALS (56 sets, daily range): BP systolic 118–182; BP diastolic 75–124; PULSE 58–125; RESP 11–26; TEMP 36.8; O2SAT 76–98
--- NOTE | 2023-05-05 14:45 | RT.EKG_ITS ---
APPROVED REPORT Exam: Resting ECG Reason for Exam: Weakness Patient Location: E HR:102 bpm ECG Measurements Heart Rate 102 AXIS MA 144 P 65 QRSd 123 QRS 166 QT 396 T -36 QTc 516 Conclusion Sinus tachycardia...rate> 99 Ventricular bigeminy...bigeminy string>4 w/ V complexes Probable left atrial enlargement...P >50mS, <-0.10mV V1 RBBB and LPFB...QRSd >120mS, axis(90,210) Nonspecific repol abnormality, lateral leads...ST dep, T neg, I aVL V5 V6
--- NOTE | 2023-05-05 15:05 | ED.GENADUL_ITS ---
Discharge Plan Discharge Details Chief Complaint: Abd Prob Primary Care Provider: Gabino Florian ED Provider: Julius Rogers Home Meds and New Rx's Prescriptions: No Action omeprazole 20 mg capsule,delayed release(DR/EC) 20 mg PO DAILY Qty: 90 3RF B-complex with vitamin C Tablet 1 tab PO DAILY Qty: 90 3RF Caltrate 600-D Plus Minerals 600 mg calcium- 800 unit-50 mg tablet 1 tab PO DAILY Qty: 90 3RF Rx Instructions: give with meal/snack prednisone 5 mg tablet 15 mg PO DAILY MDD 15 mg Qty: 90 3RF propranolol 20 mg tablet 20 mg PO BID Qty: 180 3RF oxycodone 20 mg tablet 20 mg PO BID MDD 300 mg PRN (Reason: pain) Qty: 60 0RF Rx Instructions: May take up to 40 mg QAM once per week oxycodone 30 mg tablet 30 mg PO Q4H MDD 300 mg PRN (Reason: pain) Qty: 168 0RF oxycodone 30 mg tablet,oral only,ext.rel.12 hr 30 mg PO BID MDD 300 mg Qty: 56 0RF lisinopril 20 mg tablet 30 mg PO DAILY Qty: 90 3RF naloxone [Narcan] 4 MG spray,non-aerosol 4 mg NS PRN PRNQty: 1 Rx Instructions: One spray into one nostril and call 911 for opioid overdose, repeat in 5 min acetaminophen [Tylenol Extra Strength] 500 MG tablet 1,000 mg PO DAILY tamsulosin 0.4 mg capsule 0.8 mg PO DAILY Qty: 180 3RF Rx Instructions: for lower urinary symptoms testosterone [AndroGel] 20.25 mg/1.25 gram (1.62 %) gel in metered-dose pump 3 pump TP DAILY Qty: 75 5RF Rx Instructions: apply 2 pumps over max area of ONE upper arm and shoulder, 1 pump over OTHER upper arm and shoulder cyclobenzaprine 10 mg tablet 10 mg PO TID PRN (Reason: muscle spasm) Qty: 90 3RF oxybutynin chloride 5 mg tablet See Rx Instructions .ROUTE .COMPLEX Qty: 180 3RF Dose Instruction: TAKE 1 TABLET BY MOUTH 2-3 TIMES PER DAY NEEDED FOR BLADDER SPASMS Rx Instructions: TAKE 1 TABLET BY MOUTH 2-3 TIMES PER DAY NEEDED FOR BLADDER SPASMS polyethylene glycol 3350 17 gram Powder In Packet 17 g PO BID Qty: 0 0RF amlodipine 5 mg Tablet 5 mg PO DAILY Qty: 30 0RF Medical Decision Making Patient presenting to the emergency department via EMS for chief complaint of not feeling well for the last week with no food intake for almost the same amount of time. Patient's caregiver stated that patient had not been doing well and was confused today and called EMS. Patient has vague complaints of right- sided abdominal pain otherwise he is alert and awake and oriented to person and place but timing of events and history seems to elicit confusion and abnormal answers per patient. Patient has past medical history of anxiety, heavy tobacco use, history of alcohol abuse with reported remission, chronic pain, polymy algia, hypertension umbilical hernia chronic fatigue. Physical exam shows no acute or severe distress, distended abdomen with tenderness to right upper quadrant, tachycardia, clear lung sounds, otherwise noncontributory exam. Will plan on checking labs, CT imaging, and will give fluids pending results. HPI General Mode of arrival: EMS . Date/Time Provider Initiated Documentation: 05/05/23 14:56 . Limitations to Documentation: no limitations . Information obtained by: patient and RN notes reviewed . History of Present Illness 52 year old M presents to the emergency department with the chief complaint of Reports not feeling well for 1 week, described as moderate, Quality is described as aching, and is localized to the abdomen. Patient started experiencing this day(s) (7) and it has been constant. No relieving factors improve symptom(s), No exacerbating factors reported . Patient did receive the following treatments prior to arrival, none Related Data Home Medications Medication Instructions Recorded Confirmed naloxone 4 mg/actuation nasal 4 mg NS PRN PRN #1 unit 07/25/16 04/18/23 spray (Narcan) acetaminophen 500 mg tablet 1,000 mg PO DAILY 04/03/17 04/18/23 (Tylenol Extra Strength) amlodipine 5 mg tablet 5 mg PO DAILY #30 tabs 10/26/21 04/18/23 polyethylene glycol 3350 17 gram 17 g PO BID #0 ea 10/26/21 04/18/23 oral powder packet lisinopril 20 mg tablet 30 mg (1.5 x 20 mg) PO DAILY #90 08/12/22 04/18/23 tabs tamsulosin 0.4 mg capsule 0.8 mg (2 x 0.4 mg) PO DAILY #180 09/30/22 04/18/23 tab-caps omeprazole 20 mg capsule,delayed 20 mg PO DAILY #90 caps 10/07/22 04/18/23 release testosterone (AndroGel) 3 pump topical DAILY #75 grams 01/05/23 04/18/23 cyclobenzaprine 10 mg tablet 10 mg PO TID PRN muscle spasm #90 01/10/23 04/18/23 tabs oxybutynin chloride 5 mg tablet See Rx Instructions .Route 02/23/23 04/18/23 .COMPLEX #180 tabs B-complex with vitamin C 1 tab PO DAILY #90 tabs 03/21/23 04/18/23 calcium 600 mg-D3 800 unit-mag11 1 tab PO DAILY #90 tabs 04/18/23 04/18/23 50 pe-zhzk-ffunpp-seamus-s.borat tablet (Caltrate 600-D Plus Minerals) oxycodone 20 mg tablet 20 mg PO BID PRN pain #60 tabs 04/18/23 04/18/23 oxycodone 30 mg tablet 30 mg PO Q4H PRN pain #168 tabs 04/18/23 04/18/23 oxycodone 30 mg tablet,crush 30 mg PO BID #56 tabs 04/18/23 04/18/23 resistant,extended release 12 hr prednisone 5 mg tablet 15 mg (3 x 5 mg) PO DAILY #90 tabs 04/18/23 04/18/23 propranolol 20 mg tablet 20 mg PO BID #180 tabs 04/18/23 04/18/23 Previous Rx's Medication Instructions Recorded amlodipine 5 mg tablet 5 mg PO DAILY #30 tabs 10/26/21 polyethylene glycol 3350 17 gram 17 g PO BID #0 ea 10/26/21 oral powder packet lisinopril 20 mg tablet 30 mg (1.5 x 20 mg) PO DAILY #90 08/12/22 tabs tamsulosin 0.4 mg capsule 0.8 mg (2 x 0.4 mg) PO DAILY #180 09/30/22 tab-caps omeprazole 20 mg capsule,delayed 20 mg PO DAILY #90 caps 10/07/22 release testosterone (AndroGel) 3 pump topical DAILY #75 grams 01/05/23 cyclobenzaprine 10 mg tablet 10 mg PO TID PRN muscle spasm #90 01/10/23 tabs oxybutynin chloride 5 mg tablet See Rx Instructions .Route 02/23/23 .COMPLEX #180 tabs B-complex with vitamin C 1 tab PO DAILY #90 tabs 03/21/23 calcium 600 mg-D3 800 unit-mag11 1 tab PO DAILY #90 tabs 04/18/23 50 qq-rulw-cebndw-seamus-s.borat tablet (Caltrate 600-D Plus Minerals) oxycodone 20 mg tablet 20 mg PO BID PRN pain #60 tabs 04/18/23 oxycodone 30 mg tablet 30 mg PO Q4H PRN pain #168 tabs 04/18/23 oxycodone 30 mg tablet,crush 30 mg PO BID #56 tabs 04/18/23 resistant,extended release 12 hr prednisone 5 mg tablet 15 mg (3 x 5 mg) PO DAILY #90 tabs 04/18/23 propranolol 20 mg tablet 20 mg PO BID #180 tabs 04/18/23 Allergies Allergy/AdvReac Type Severity Reaction Status Date / Time diclofenac AdvReac Severe dyspepsia Verified 04/18/23 10:55 with all nsaids duloxetine HCl AdvReac Unknown lethargic, Verified 04/18/23 10:55 [From Cymbalta] nausea/vomiting,diarrhea ibuprofen AdvReac Unknown GASTRIC SX Verified 04/18/23 10:55 morphine sulfate AdvReac Unknown SEDATION, Verified 04/18/23 10:55 [From MS Contin] HUNG OVER nabumetone AdvReac Unknown GI PAIN Verified 04/18/23 10:55 General Stated Complaint: Abd Prob CURRY: 3 Review of Systems Constitutional Constitutional: Denies chills, Denies fever(s), Reports lethargy, Reports malaise and Reports poor appetite Cardiovascular Cardiovascular: Denies chest pain and Denies dyspnea Respiratory Respiratory: Denies cough and Denies dyspnea Gastrointestinal Gastrointestinal: Reports as per HPI, Reports abdominal pain, Denies melena, Denies hematochezia, Denies change in bowel habits, Denies constipation, Denies diarrhea, Reports nausea, Denies vomiting and Denies hematemesis Genitourinary Genitourinary: Denies hematuria, Denies difficulty urinating, Denies urinary hesitancy, Denies urinary incontinence and Denies urinary urgency Integumentary/Breasts Skin/Breast: Denies rash Neurologic Neurologic: Reports confusion Psychiatric Psychiatric: Reports confusion PFSH All Active Problems Peripheral neuropathy (Acute) Syncope, cardiogenic (Acute) Essential tremor (Acute) Iritis (Acute) Umbilical hernia (Acute) Constipation due to opioid therapy (Acute) Osteoporosis with pathological fracture of thoracic vertebra (Acute) Constipation (Acute) Polymyalgia rheumatica (Acute) Chronic pain syndrome (Chronic 05/15/89) Rib pain (Acute) Compression fracture of T12 vertebra (Acute) Unintentional weight loss (Acute) Tobacco dependence syndrome (Chronic 05/15/84) 1 PPS; unable to stop, multiple tries; 2019- reduced on buproprion Long-term corticosteroid use (Chronic) Finished course December 2019 Benign familial tremor (Acute) Acute cholecystitis (Acute 09/22/12) 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) Lower urinary tract symptoms (Acute 08/01/14) Nocturia (Acute 05/12/14) Status post epidural steroid injection (Acute 12/18/14) Urgency of urination (Chronic 11/03/15) Primary fibromyalgia syndrome (Chronic 01/14/12) DR BAYRON DEVI 01/2012; H/O DR BALDERAS PRIOR TO THAT Palpitations (Chronic 11/28/16) h/o 08/2014, Holter: freq PAC's with no SVT; Holter 11/2016: okay; ZIO patch 02/2017 pending Other chronic pain (Chronic 05/15/05) STARTED WITH FOOT PAIN, COMPLEX REGIONAL PAIN SYN FOLLOWING CHAIN SAW INJURY L FOOT ; LATER OTHER BACK, NECK, ARMS; opioids <2005; MRI 11/2014; pain clinic -12/2014 (last summary note 04/07/16; Lumbar epidural 09/01/16 Midline low back pain with sciatica (Chronic 06/23/11) CT neg 02/2014; MRI 11/2014: L L4-5 disc bulge, sciatica L; Dr Arambula, epidural 12/19/14 not effective; sometimes radiate either leg, Dr Marlow neuro eval Hypogonadism in male (Chronic 04/12/16) elevated gonadotrophin (not caused by opioid rx) Pain, joint, hand, right (Chronic) swelling MCP and C[facility] R hand, x-ray neg, Dr Balderas, related to overuse. (2008- 2009); Dr Anastasia Devi 2011 Chronic fatigue (Chronic 04/05/16) incr frequency over 6 months Alcohol use disorder, mild, in sustained remission, abuse (Chronic 02/12/99) ABSTINENT SINCE 02/1999; HAD TO BE SOBER X 3YR TO GET LICENSE 2002 Adjustment disorder with mixed anxiety and depressed mood (Chronic 03/17/16) Lumbar radicular pain (Chronic) Tobacco dependence syndrome (Chronic) History of surgery (Chronic) Appendectomy. Multiple surgeries for repair of left foot after chainsaw injury. Lap kinjal 09/22/[address] Aubrey Nguyen. Gastroesophageal reflux disease (Chronic) Fibromyalgia (Chronic) Medical History Constipation Essential hypertension Compression fracture of lumbar vertebra Other mixed anxiety disorders (06/08/15) Lower urinary tract symptoms (LUTS) (08/01/14) responsive to tamsulosin 0.8mg Gastroesophageal reflux disease Surgical History S/P foot surgery, left S/P cholecystectomy S/P appendectomy Family History Mother No problems noted. Father Personal history of malignant neoplasm prostate CA Brother , heart at age 57. Heart disease cardiomyopathy Brother Myocardial infarction 21 Social History Smoking/Tobacco Use Status: Current every day Tobacco Type: cigarettes Tobacco: How many years used: 30 Smoking risk assessment performed?: Yes Alcohol Intake: former Drug use: Never Substance use type: does not use Adopted: No Caregiver/Support person: No Foster care: No Household members: children Housing: house Number of Children: 3 Communication Needs: Corrective Lenses current occupation: [employer] Current gender identity: male What is your relationship status?: Panel score (0-1 are the most socially isolated patients): 1 What type of physical activity do you participate in: none Seatbelt use: always Water heater temp set <120 deg: Yes Working smoke detector in home: Yes Fire extinguisher in home: Yes Carbon monox detector in home: Yes Do you feel safe at home: Yes Do you feel safe in your relationship?: Yes Exam Const General: cooperative, no acute distress and disheveled Orientation: alert and awake Resp Effort & Inspection: normal respiratory effort and able to speak in complete sentences Auscultation: clear to auscultation bilaterally Cardio Rate: tachycardic Rhythm: regular rhythm Heart Sounds: S1 normal and S2 normal GI Inspection: distended Palpation: soft, not firm, no guarding, no masses, no pulsatile masses, not rigid, no splenomegaly and tender in the RUQ Auscultation: hypoactive bowel sounds Back/Spine/Pelvis Back: no CVA tenderness Neuro General: patient alert, patient awake, gait normal and moves all extremities Course Vital Signs Vital signs: Vital Signs Temperature 36.8 C 05/05/23 14:47 Pulse 116 H 05/05/23 14:47 Respiratory Rate 16 05/05/23 14:47 Blood Pressure 149/102 H 05/05/23 14:47 Pulse Oximetry 91 L 05/05/23 14:47 Temperature 36.8 C 05/05/23 14:52 Temperature Source Oral 05/05/23 14:52 Pulse 100 H 05/05/23 14:52 Respiratory Rate 16 05/05/23 14:52 Respiratory Effort Normal 05/05/23 14:52 Blood Pressure 156/100 H 05/05/23 14:52 Blood Pressure Position Sitting 05/05/23 14:52 Pulse Oximetry 91 L 05/05/23 14:52 Oxygen Delivery Method Room Air 05/05/23 14:52 Oxygen Flow Rate 0 05/05/23 14:52 Pain Level 5 05/05/23 14:52 Comment Abdominal pain 05/05/23 14:47 Sign Out Sign Out Data: Sign Out Comment: Patient signed out pending review of labs, CT imaging, reassessment, and final disposition for general malaise weakness lack of appetite and abdominal pain. Last updated by Julius Rogers NP at 05/05/23 15:32
[2023-05-05 15:18] LABS: Abs Immature Grans 0.02 10^3/uL (0.0-0.06); Absolute Basophil Count 0.03 10^3/uL (0.0-0.2); Absolute Eosinophil Count 0.02 10^3/uL (0.0-0.7); Absolute Monocyte Count 0.46 10^3/uL (0.1-0.8); Absolute Neutrophil Count 6.33 10^3/uL (1.2-6.7); Basophils % 0.4; Eosinophils % 0.2; HCT 43.8 % (40.0-50.0); HGB 14.2 g/dL (13.5-17.5); Immature Grans % 0.2; Lymphocytes % 16.9; MCH 28.5 pg (27.0-33.0); MCHC 32.4 % (32.0-36.0); MCV 88 fL (80-95); MPV 12.3 fL (8.0-11.0); Monocytes % 5.6; Neutrophils % 76.7; Platelet Count 129 10^3/uL (130-400); RBC 4.98 10^6/uL (4.36-5.78); RDW 16.4 % (11.8-14.1); RDW-SD 52.3 fL; WBC 8.26 10^3/uL (4.4-10.8)
[2023-05-05 15:22] LABS: Lactate 2.6 mmol/L (0.6-1.4)
[2023-05-05 15:41] LABS: Ammonia 12 umol/L (11-32)
[2023-05-05 15:43] LABS: ALT 208 U/L (16-63); AST 77 U/L (15-37); Alkaline Phosphatase 409 U/L (46-116); Anion Gap 5.2 mmol/L (3-11); BUN 27 mg/dL (7-18); Bilirubin, Total 3.4 mg/dL (0.2-1.0); CO2 41.8 mmol/L (21.0-32.0); CREATININE 1.3 mg/dL (0.70-1.30); Calcium 7.2 mg/dL (8.5-10.1); Chloride 94 mmol/L (98-107); Glucose 107 mg/dL (74-106); Lipase 107 U/L (16-77); Magnesium 1.4 mg/dL (1.8-2.4); Sodium 141 mmol/L (136-145); Total Protein 6.1 g/dL (6.4-8.2)
[2023-05-05 15:45] LABS: Potassium 2.1 mmol/L (3.5-5.1); Troponin I 231 ng/L (<or=60)
[2023-05-05] MEDS: Normal Saline 1,000 ML 125 ML IV (15:48)
--- NOTE | 2023-05-05 15:54 | W.EDPROG ---
Date of service: 05/05/23 Time of Service: 15:54 Medical Decision Making Care assumed from provider (Car Rogers, VAIBHAV) Please see their initial HPI, PE, and documentation. Discussed patient details and case and pending workup and disposition. Patient is hemodynamically stable, and confused. 52-year-old male with past medical history of hypertension, anxiety, GERD who is of former drinker presents to the ER complaining of abdominal pain and decreased appetite p.o. intake for the last week. He does have some family at the bedside. Came in by ambulance with weakness. Upon initial presentation and my examination he is hypertensive with a blood pressure of 140/107 tachycardic 101, informing nursing staff development coordinator that his O2 sat dropped down to 81% on room air he was placed on 2 L nasal cannula. He is now 94%. He does have an elevated troponin at 231, calcium 7.2 magnesium 1.4 potassium is critically low at 2.1 sodium 141 lactate is 2.6. No leukocytosis his platelets are low at 129, bilirubin is elevated at 3.4 AST is 77, ALT 208 alk phos 409. Lipase is 107. CT and abdomen pelvis is pending, chest x-ray added on, ethyl alcohol level, EKG shows some lateral ST depression changes which are new. Magnesium 1 g IV piggyback ordered, potassium 20 mill equivalents IV piggyback ordered and an additional IV. Additional Mag 1gm ordered for a total of 2gm Mag and addition 20meq Potassium ordered. CTA Thorax, abd/pelvis ordered. Discussed lab results with patient and family in the room they verbalized understanding. Patient is complaining of right-sided chest pain 5 or 6 out of 10, he also reports nausea vomiting diarrhea he denies any blood in his stool or vomit. He reports that he has stopped drinking. He is unable to tell me when his last drink was. He does have 2+ pitting edema noted to his lower extremities with some erythema ecchymosis to his anterior ankles. Chest x-ray canceled. Patient does have electrolyte abnormality which could contribute to the EKG changes of lateral ST depressions, 1637: Blood pressure has improved to 134/84 1759: Spoke with Dr. Brumfield radiologist regarding CT results he reports an approximately 5 x 6 cm right upper lobe mass which is concerning for possible malignancy versus infiltrate there is also a infiltrate noted in the right lower lobe and a nonloculated right pleural effusion. No aneurysm, there is mild ascites in the upper abdomen and pelvis. And hepatic steatosis. Also of note is possible developing small bowel obstruction. Patient did have an episode of diarrhea here in the department. Blood cultures ordered. Will give antibiotics for possible infiltrate and pneumonia. Will consider discussing with hospitalist pending serial troponin. 182: Serial Troponin 211. CT results discussed with Patient and family, he is a full code. 1831: Hospitalist paged. 185: Spoke with Dr. Alcantar with hospitalist he recommends cardiology consult, dose of hydrocortisone IV Rocephin which was added onto the doxycycline and he will plan on admitting patient with pneumonia with lung mass and electrolyte abnormality. 1851: Cardiology paged. 1905: Spoke with Dr. Jerry Reynolds with cardiology at [facility], discussed patient case and details, no further recommendations at this time, he will call me back. 1944: Spoke again with Dr. Reynolds he is aware that we do not have Echo capabilities until Monday, he does recommend medicine consult with possible transfer pending [facility] bed status. He will call me back. He does not recommend anticoagulation nor lasix at this time. 2012: Spoke again with Dr. Reynolds, he will accept patient to cardiology for echocardiogram and further evaluation, Accepting is Dr. Cifuentes. Awaiting bed assignment. He does not recommend plavix, or any further treatment at this time. This text was generated using [employer] dictation system, please disregard any oddities of phrase or misspellings. 2106: EMS here for transport. Differential Diagnosis Differential Diagnosis: Hepatitis, liver cirrhosis, liver failure, OK, aortic aneurysm, NSTEMI, EKG Imaging Data Radiologic Study: Imaging: CT Scan Radiologist's impression: Exam(s) CT THORAX ABD/PEL CTA EXAM: CT THORAX ABD/PEL CTA CLINICAL HISTORY: Right sided chest pain, RUQ abd pain,. TECHNIQUE: Imaging Protocol: Axial computed tomography images with coronal and sagittal reformatted images were created and reviewed CONTRAST MATERIAL: Intravenous: Omnipaque 350 Contrast volume:100 ml Oral: None COMPARISON: CT CT CHEST/ABD/PEL WO from 10/23/[address] CHEST WO from 01/03/2022 FINDINGS: CHEST: AORTA: The diameter of the ascending thoracic aorta is normal. Diameter of the aortic arch and descending thoracic aorta are upper normal. There is no dissection. No pericardial effusion. No evidence of abdominal aortic aneurysm nor aneurysmal dilatation of the iliac arteries and femoral arteries. No tight arterial stenosis evident. LUNGS: There are advanced emphysematous changes. There is a prominent pleural base mass in the right upper lobe which was not evident on prior CT scan, measures 4.6 by 4.2 cm and is suspicious for malignancy. There is no overlying rib destruction. However, there is infiltrate noted in the right lower lobe and volume loss in the basal segments of the right lower lobe with a moderate size non loculated right pleural effusion evident. Are only mild increased markings in the left lung base and no left pleural effusion. MEDIASTINUM: There is no hilar adenopathy nor adenopathy in the anterior mediastinal fat. A few slightly prominent subcarinal lymph nodes are noted. Visualized thyroid unremarkable. CARDIAC: Heart size is normal. There is no pericardial effusion. Osseous: There are healed fractures of the left 8th and 9th ribs. Compression fracture of T10 is again noted also slight loss of height of superior endplate of T11 now evident. Unchanged compression fracture T12. Also loss of height superior endplates of multiple lumbar vertebrae noted. ABDOMEN: There is mild ascites in the upper abdomen and pelvis. LIVER: Liver is diffusely hypodense implying steatosis, more so than previous. There are no discrete ominous focal hepatic metastatic appearing lesions, realized limitations of an arterial phase study. GALLBLADDER/BILIARY: Gallbladder surgically absent. CBD is not dilated. PANCREAS: No evidence of pancreatic mass nor dilatation of the pancreatic duct. SPLEEN: Spleen is not enlarged. There are no intrasplenic lesions. Splenic and portal veins are patent. ADRENALS: There are no significant adrenal masses. KIDNEYS: No cysts evident. No calculi nor hydronephrosis. No solid renal masses. ABDOMINAL AORTA: The abdominal aorta is not enlarged. LYMPH NODES: There is no retroperitoneal nor para-aortic adenopathy. No obvious mesenteric masses. ABDOMINAL WALL: No evidence of significant anterior abdominal wall hernia. GI: Are some strained appearing small bowel loops. There is some mesenteric vascular engorgement associated with these loops. Transition point appears to be in the right-side of the abdomen. The colon is collapsed. The small bowel loops exhibit upper normal diameters. The colon is collapsed. PELVIS: LYMPH NODES: There is no intrapelvic nor inguinal adenopathy. GI: Appendix not seen. May be surgically absent.No evidence of sigmoid diverticulitis. URINARY BLADDER: No calculi nor masses evident REPRODUCTIVE: Prostate not enlarged. Seminal vesicles unremarkable. OSSEOUS: No significant osseous lesions. IMPRESSION: 1. In the chest there are severe COPD findings and there is a concerning pleural based infiltrate-mass in the right upper lobe measuring approximately 4.6 x 4.2 by 6 cm in the upper lobe associated with a moderate size right pleural effusion. Also some infiltrate and volume loss in the basal segments of the right lower lobe. First consideration is for right upper lobe malignancy and right pleural effusion. There few slightly enlarged subcarinal lymph nodes. No obvious hilar adenopathy. 2. No evidence of aortic dissection nor pericardial effusion, as per request. 3. Subtle suggestion of developing small-bowel obstruction with transition point in the right-side of the abdomen. Small amount of ascites. No free air. Colon is collapsed. Mesenteric arteries are patent. 4. Gallbladder surgically absent. 5. Hepatic steatosis. 6. Multiple compression fractures in the spinal column, at and below T10 level. Lab Data Lab results reviewed: Yes I reviewed the patient's lab results. Labs: Laboratory Tests Range/Units 05/05/23 15:11 WBC (4.4-10.8) 10^3/uL 8.26 RBC (4.36-5.78) 10^6/uL 4.98 Hgb (13.5-17.5) g/dL 14.2 Hct (40.0-50.0) % 43.8 MCV (80-95) fL 88 MCH (27.0-33.0) pg 28.5 MCHC (32.0-36.0) % 32.4 RDW (11.8-14.1) % 16.4 H Plt Count (130-400) 10^3/uL 129 L MPV (8.0-11.0) fL 12.3 H Immature Gran % 0.2 Neutrophils % 76.7 Lymphocytes % 16.9 Monocytes % 5.6 Eosinophils % 0.2 Basophils % 0.4 Nucleated RBC % (0.0-0.3) % 0.0 Absolute Neutrophils (1.2-6.7) 10^3/uL 6.33 Absolute Lymphocytes (1.2-3.4) 10^3/uL 1.40 Absolute Monocytes (0.1-0.8) 10^3/uL 0.46 Absolute Eosinophils (0.0-0.7) 10^3/uL 0.02 Absolute Basophils (0.0-0.2) 10^3/uL 0.03 VBG Lactate (0.6-1.4) mmol/L 2.6 H* Sodium (136-145) mmol/L 141 Potassium (3.5-5.1) mmol/L 2.1 L* Chloride (98-107) mmol/L 94 L Carbon Dioxide (21.0-32.0) mmol/L 41.8 H Anion Gap (3-11) mmol/L 5.2 BUN (7-18) mg/dL 27 H Creatinine (0.70-1.30) mg/dL 1.3 Est GFR (CKD-EPI 2020) (mL/min/1.73m2) 66.10 Glucose (74-106) mg/dL 107 H Calcium (8.5-10.1) mg/dL 7.2 L Magnesium (1.8-2.4) mg/dL 1.4 L Total Bilirubin (0.2-1.0) mg/dL 3.4 H AST (15-37) U/L 77 H ALT (16-63) U/L 208 H Alkaline Phosphatase (46-116) U/L 409 H Ammonia (11-32) umol/L 12 Troponin I (<or=60) ng/L 231 H* Total Protein (6.4-8.2) g/dL 6.1 L Albumin (3.4-5.0) g/dL 2.0 L Lipase (16-77) U/L 107 H Ethyl Alcohol (<10) mg/dL < 3.0 Core Measures Measure exclusions: not indicated (No ST elevation,) Exam Narrative Exam Narrative: Constitutional: Alert and oriented x2. Appears ill, acute on chronic. Thin body habitus. Swollen face. Head: Normocephalic, no trauma. Eyes: Pupils PERRL, Red reflex noted, EOM's intact. Eyelids symmetrical without lesions, does have some purulent discharge noted bilaterally, does have some swelling of his eyelids bilaterally. ENT: , no nasal discharge. poordentition, Posterior pharynx WNL, no exudate. Dry mucous membranes. Tongue is midline. Chest: Irregular with occasional PVCs, see EKG results and MDM, normal S1, S2, distal pulses intact. Resp: Lungs diminished to auscultation bilaterally, no wheezes, rales, or rhonchi. Abdomen: Soft, generalized tenderness with palpation worse in the right upper quadran, hypoactive bowel sounds Musculoskeletal: Unable to assess gait, moves all 4 extremities. Skin: Ecchymosis noted to his bilateral lower anterior extremities, he does have 2+ pitting edema noted to his lower feet. Capillary refill less than 2 sec. Neurologic: Cranial nerves II-XII intact. Alert and oriented x 2. Appears somewhat confused initially. No facial droop. Alert and oriented x 2 upon arrival. Hematologic/Lymphatic: no lymphadenopathy. Critical Care Time Critical Care Time Critical Care Time: Yes Total Critical Care Time: 45 Sign Out Sign Out Data: Sign Out Comment: Patient signed out pending review of labs, CT imaging, reassessment, and final disposition for general malaise weakness lack of appetite and abdominal pain. Last updated by Julius Rogers NP at 05/05/23 15:32 Discharge Plan Disposition Patient Disposition: Transfer-Acute Inpatient Care Specific Acute Inpt Facility: [facility] Condition: Serious Discharge Details Clinical Impression: Non-ST elevation OK (NSTEMI), Mass of upper lobe of right lung, Electrolyte disturbance Primary Care Provider: Gabino Florian ED Provider: [facility] [place] Meds and New Rx's Prescriptions: No Action omeprazole 20 mg capsule,delayed release(DR/EC) 20 mg PO DAILY Qty: 90 3RF B-complex with vitamin C Tablet 1 tab PO DAILY Qty: 90 3RF Caltrate 600-D Plus Minerals 600 mg calcium- 800 unit-50 mg tablet 1 tab PO DAILY Qty: 90 3RF Rx Instructions: give with meal/snack prednisone 5 mg tablet 15 mg PO DAILY MDD 15 mg Qty: 90 3RF propranolol 20 mg tablet 20 mg PO BID Qty: 180 3RF oxycodone 20 mg tablet 20 mg PO BID MDD 300 mg PRN (Reason: pain) Qty: 60 0RF Rx Instructions: May take up to 40 mg QAM once per week oxycodone 30 mg tablet 30 mg PO Q4H MDD 300 mg PRN (Reason: pain) Qty: 168 0RF oxycodone 30 mg tablet,oral only,ext.rel.12 hr 30 mg PO BID MDD 300 mg Qty: 56 0RF lisinopril 20 mg tablet 30 mg PO DAILY Qty: 90 3RF naloxone [Narcan] 4 MG spray,non-aerosol 4 mg NS PRN PRNQty: 1 Rx Instructions: One spray into one nostril and call 911 for opioid overdose, repeat in 5 min acetaminophen [Tylenol Extra Strength] 500 MG tablet 1,000 mg PO DAILY tamsulosin 0.4 mg capsule 0.8 mg PO DAILY Qty: 180 3RF Rx Instructions: for lower urinary symptoms testosterone [AndroGel] 20.25 mg/1.25 gram (1.62 %) gel in metered-dose pump 3 pump TP DAILY Qty: 75 5RF Rx Instructions: apply 2 pumps over max area of ONE upper arm and shoulder, 1 pump over OTHER upper arm and shoulder cyclobenzaprine 10 mg tablet 10 mg PO TID PRN (Reason: muscle spasm) Qty: 90 3RF oxybutynin chloride 5 mg tablet See Rx Instructions .ROUTE .COMPLEX Qty: 180 3RF Dose Instruction: TAKE 1 TABLET BY MOUTH 2-3 TIMES PER DAY NEEDED FOR BLADDER SPASMS Rx Instructions: TAKE 1 TABLET BY MOUTH 2-3 TIMES PER DAY NEEDED FOR BLADDER SPASMS polyethylene glycol 3350 17 gram Powder In Packet 17 g PO BID Qty: 0 0RF amlodipine 5 mg Tablet 5 mg PO DAILY Qty: 30 0RF
--- NOTE | 2023-05-05 16:00 | DI.CT_ITS ---
Exam(s) CT THORAX ABD/PEL CTA EXAM: CT THORAX ABD/PEL CTA CLINICAL HISTORY: Right sided chest pain, RUQ abd pain,. TECHNIQUE: Imaging Protocol: Axial computed tomography images with coronal and sagittal reformatted images were created and reviewed CONTRAST MATERIAL: Intravenous: Omnipaque 350 Contrast volume:100 ml Oral: None COMPARISON: CT CT CHEST/ABD/PEL WO from 10/23/[address] CHEST WO from 01/03/2022 FINDINGS: CHEST: AORTA: The diameter of the ascending thoracic aorta is normal. Diameter of the aortic arch and desce nding thoracic aorta are upper normal. There is no dissection. No pericardial effusion. No evidenc e of abdominal aortic aneurysm nor aneurysmal dilatation of the iliac arteries and femoral arteries. No tight arterial stenosis evident. LUNGS: There are advanced emphysematous changes. There is a prominent pleural base mass in the right upper lobe which was not evident on prior CT scan, measures 4.6 by 4.2 cm and is suspicious for mani gnancy. There is no overlying rib destruction. However, there is infiltrate noted in the right lowe r lobe and volume loss in the basal segments of the right lower lobe with a moderate size non loculat ed right pleural effusion evident. Are only mild increased markings in the left lung base and no left pleural effusion. MEDIASTINUM: There is no hilar adenopathy nor adenopathy in the anterior mediastinal fat. A few slig htly prominent subcarinal lymph nodes are noted. Visualized thyroid unremarkable. CARDIAC: Heart size is normal. There is no pericardial effusion. Osseous: There are healed fractures of the left 8th and 9th ribs. Compression fracture of T10 is aga in noted also slight loss of height of superior endplate of T11 now evident. Unchanged compression f racture T12. Also loss of height superior endplates of multiple lumbar vertebrae noted. ABDOMEN: There is mild ascites in the upper abdomen and pelvis. LIVER: Liver is diffusely hypodense implying steatosis, more so than previous. There are no discrete ominous focal hepatic metastatic appearing lesions, realized limitations of an arterial phase study. GALLBLADDER/BILIARY: Gallbladder surgically absent. CBD is not dilated. PANCREAS: No evidence of pancreatic mass nor dilatation of the pancreatic duct. SPLEEN: Spleen is not enlarged. There are no intrasplenic lesions. Splenic and portal veins are lees nt. ADRENALS: There are no significant adrenal masses. KIDNEYS: No cysts evident. No calculi nor hydronephrosis. No solid renal masses. ABDOMINAL AORTA: The abdominal aorta is not enlarged. LYMPH NODES: There is no retroperitoneal nor para-aortic adenopathy. No obvious mesenteric masses. ABDOMINAL WALL: No evidence of significant anterior abdominal wall hernia. GI: Are some strained appearing small bowel loops. There is some mesenteric vascular engorgement ass ociated with these loops. Transition point appears to be in the right-side of the abdomen. The colo n is collapsed. The small bowel loops exhibit upper normal diameters. The colon is collapsed. PELVIS: LYMPH NODES: There is no intrapelvic nor inguinal adenopathy. GI: Appendix not seen. May be surgically absent.No evidence of sigmoid diverticulitis. URINARY BLADDER: No calculi nor masses evident REPRODUCTIVE: Prostate not enlarged. Seminal vesicles unremarkable. OSSEOUS: No significant osseous lesions. IMPRESSION: 1. In the chest there are severe COPD findings and there is a concerning pleural based infiltrate-mas s in the right upper lobe measuring approximately 4.6 x 4.2 by 6 cm in the upper lobe associated with a moderate size right pleural effusion. Also some infiltrate and volume loss in the basal segments of the right lower lobe. First consideration is for right upper lobe malignancy and right pleural ef fusion. There few slightly enlarged subcarinal lymph nodes. No obvious hilar adenopathy. 2. No evidence of aortic dissection nor pericardial effusion, as per request. 3. Subtle suggestion of developing small-bowel obstruction with transition point in the right-side of the abdomen. Small amount of ascites. No free air. Colon is collapsed. Mesenteric arteries are p atent. 4. Gallbladder surgically absent. 5. Hepatic steatosis. 6. Multiple compression fractures in the spinal column, at and below T10 level. Called by myself to ER provider. RADIATION DOSE DELIVERED: Total DLP DATA REPOSITORY: All CT scans at this facility are submitted to the National Radiology Data Registry (NRDR) Dose Index Registry (DIR) with the [employer] (ACR). RADIATION OPTIMIZATION: All CT scans at this facility use at least one of these dose optimization te chniques: automated exposure control; mA and/or kV adjustment per patient size (includes targeted exa ms where dose is matched to clinical indication); or iterative reconstruction.
[2023-05-05] MEDS: MAGNESIUM SULFATE 1 GM/100 ML BAG IVPB (16:05)
[2023-05-05] MEDS: POTASSIUM CHLORIDE 20 MEQ/100 ML BAG 50 MEQ IVPB ×2 (16:07→18:42)
[2023-05-05 16:21] LABS: ETHANOL BLOOD < 3.0 mg/dL (<10)
[2023-05-05] MEDS: Omnipaque 350 MG/ML 100 ML BTL IJ (16:57)
[2023-05-05] MEDS: Normal Saline - Diluent 50 ML VIAL IJ (16:59)
[2023-05-05] MEDS: MAGNESIUM SULFATE 2 GM/50 ML BAG IVPB (17:15)
[2023-05-05 17:30] LABS: Lab Add On Test DONE
--- NOTE | 2023-05-05 17:30 | RT.EKG_ITS ---
APPROVED REPORT Exam: Resting ECG Reason for Exam: Repeat Patient Location: E HR:99 bpm ECG Measurements Heart Rate 99 AXIS NM 146 P 69 QRSd 118 QRS 140 QT 406 T -50 QTc 508 Conclusion Sinus rhythm...normal P axis, V-rate 60- 99 Probable left atrial enlargement...P >50mS, <-0.10mV V1 Incomplete right bundle branch block...QRSd >112, terminal axis(90,270) Repol abnrm suggests ischemia, diffuse leads...ST-T neg, ant/lat/inf Prolonged QT interval...QTc >500mS ST changes and prolong QT likely related to electrolyte abnormalities patient found to have. No Reese ge compared to EKG from earlier today.
[2023-05-05 17:44] LABS: Source Nasopharynx
--- NOTE | 2023-05-05 17:45 | RT.EKG_ITS ---
APPROVED REPORT Exam: Resting ECG Reason for Exam: arrythmia Patient Location: E HR:94 bpm ECG Measurements Heart Rate 94 AXIS GA 153 P 36 QRSd 137 QRS 105 QT 437 T -39 QTc 548 Conclusion Sinus rhythm...normal P axis, V-rate 60- 99 Atrial premature complex...SV complex w/ short R-R interval RBBB and LPFB...QRSd >120mS, axis(90,210) Lateral infarct, acute...ST >.10mV, V5 V6 I [address] elevation is not appreciated. Artifact present but still not significantly different than two previous EKGs from today.
[2023-05-05] MEDS: Normal Saline 1,000 ML 1000 ML IV (17:50)
[2023-05-05 17:52] LABS: NT-proBNP 8951 pg/mL (<300)
[2023-05-05 18:07] LABS: Lactate 2.5 mmol/L (0.6-1.4)
[2023-05-05 18:14] LABS: COVID-19 PCR Negative (Negative)
[2023-05-05 18:27] LABS: Troponin I 211 ng/L (<or=60)
[2023-05-05] MEDS: DOXYCYCLINE 100 MG in Normal Saline 100 ML IVPB (18:40)
[2023-05-05] MEDS: Aspirin 81 MG CHEW 324 MG CH (19:24)
[2023-05-05] MEDS: cefTRIAXone 1 GM/50 ML BAG IVPB (19:45)
[2023-05-05 20:21] LABS: Lab Add On Test DONE
[2023-05-05] MEDS: Hydrocortisone SOD SUC. 100 MG VIAL IVP (20:21)
[2023-05-05 20:44] LABS: PTT Activated 31.2 sec (23.6-32.8)
[2023-05-05 21:01] LABS: INR 1.5 (0.9-1.1)
[2023-05-08 10:03] LABS: Hepatitis A Antibody IgM Negative (Negative); Hepatitis B Core Antibody Negative (Negative); Hepatitis B surface Ag Negative (Negative); Hepatitis C Ab w Rflx HCV PCR Negative (Negative)
== END 2023-05-05 21:26 | disposition short-term general hospital (02) ==
PROVIDERS: Nurse Practitioner Family; Emergency Provider Registered Nurse Emergency; PCP Family Medicine
DX: I21.4 Non-ST elevation (NSTEMI) myocardial infarction (principal); R91.8 Other nonspecific abnormal finding of lung field; E87.6 Hypokalemia; E83.42 Hypomagnesemia; R79.89 Other specified abnormal findings of blood chemistry; I45.2 Bifascicular block; I10 Essential (primary) hypertension; Z11.52 Encounter for screening for COVID-19; Z79.899 Other long term (current) drug therapy
CPT/HCPCS: 00123; 36415; 71275; 80053; 83690; 86704; 86709; 86803; 87040; 87340; 87635; 93005; 96365; 96366; 96367; 96368; 96375; 99285; 74174; 80320; 82140; 83605; 83735; 83880; 84484; 85025; 85610; 85730; 93010; J0696; J1720; J3475; J3480; J3490